=== PATIENT | female | born 1950 | race Caucasian/White ===

== ENCOUNTER 2023-02-03 21:54 | Inpatient (IN) ==
[2023-02-03] MEDS ORDERED: CALCIUM GLUCONATE 1000 MG/60 ML NSS IV ONE (21:59)
[2023-02-03] MEDS ORDERED: CALCIUM GLUCONATE 1,000 MG/60 ML BAG IV STA (22:12)
[2023-02-03] MEDS ORDERED: SODIUM CHLORIDE 0.9% 1,000 ML IV ONE (22:12)
--- NOTE | 2023-02-03 22:39 | Emergency Department Note ---
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 Dose: Not Given Documented By: SOREN Miscellaneous (Patient's Height &/Or Weight Needed) 1 each N/A NOW STA Stop: 02/04/23 03:50 Last Admin: 02/04/23 05:01 Dose: Not Given Documented By: TREVOR Pneumococcal 20-Valent Conj Vacc (Pneumococcal Vaccine (Pcv20) 20-Romina Conj-Dip Crm/Pf 0.5 Ml Syr) 0.5 ml IM .ONCE ONE Stop: 02/04/23 12:01 Last Admin: 02/04/23 12:11 Dose: Not Given Documented By: SOREN Propofol (Propofol Iv Emulsion 10 Mg/Ml 100 Ml Vial) Confirm Administered Dose 1,000 mg IV .STK-MED ONE Stop: 02/04/23 01:53 Last Admin: 02/04/23 03:08 Dose: Not Given Documented By: FLY Sodium Bicarbonate (Sodium Bicarb 8.4% Inj 50 Meq/50 Ml Syr) 50 meq IV NOW STA Stop: 02/04/23 00:08 Last Admin: 02/04/23 00:23 Dose: 50 meq Documented By: CHRISTIAN Sodium Bicarbonate (Sodium Bicarb 8.4% Inj 50 Meq/50 Ml Syr) 50 meq IV NOW STA Stop: 02/04/23 13:38 Last Admin: 02/04/23 14:22 Dose: 50 meq Documented By: SOREN Imaging Data Radiologist's Impression: Cervical Spine CT 02/03/23 22:11 Exam(s): CT C SPINE EXAM: CT Cervical Spine Without Intravenous Contrast CLINICAL HISTORY: Reason for exam: unresponsive. TECHNIQUE: Axial computed tomography images of the cervical spine without intravenous contrast. CTDI is 26.96 mGy and DLP is 671.03 mGy-cm. Automated exposure control was utilized for the study. A dose lowering technique was utilized adhering to the principles of ALARA. COMPARISON: MRI from December 25, 2012 FINDINGS: Vertebrae: Moderate narrowing and osteophytosis of the atlantodental joint. The odontoid process is intact. No acute fracture. Soft tissues: Unremarkable. Vasculature: Mild calcification of the carotid bifurcation bilaterally. Tubes, lines and devices: Endotracheal and NG tube in place. The tips are not visible. DISCS/SPINAL CANAL/NEURAL FORAMINA: C2-C3: Mild degenerative disc disease. No stenosis. C3-C4: Moderate degenerative disc disease. No stenosis. C4-C5: Moderate degenerative disc disease. No stenosis. C5-C6: Moderate degenerative disc disease. No stenosis. C6-C7: Moderate degenerative disc disease. No stenosis. C7-T1: Mild degenerative disc disease. No stenosis. IMPRESSION: Mild to moderate multilevel degenerative disc disease and facet arthrosis throughout the cervical spine. No acute fracture or subluxation is seen. Electronically signed by: Rah Valdes MD 02/03/23 23:[address] 02/03/23 22:11 Exam(s): CT HEAD Without Contrast EXAM: CT Head Without Intravenous Contrast CLINICAL HISTORY: Reason for exam: unresponsive, head trauma. TECHNIQUE: Axial computed tomography images of the head/brain without intravenous contrast. CTDI is 38.43 mGy and DLP is 624.41 mGy-cm. Automated exposure control was utilized for the study. A dose lowering technique was utilized adhering to the principles of ALARA. COMPARISON: December 23, 2012 MRI brain FINDINGS: Brain: Mild cerebral atrophy and periventricular white matter low density consistent with chronic small vessel disease and/or senescent changes. 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 No acute large vessel infarct or intracranial hemorrhage is seen. Ventricles: Unremarkable. No ventriculomegaly. Bones/joints: See below. Soft tissues: Left frontal scalp hematoma. There is preseptal periorbital edema as well. No skull or acute facial fracture is identified. Sinuses: Unremarkable as visualized. No acute sinusitis. Mastoid air cells: Unremarkable as visualized. No mastoid effusion. IMPRESSION: 1. Left frontal scalp hematoma. There is preseptal periorbital edema as well. No skull or acute facial fracture is identified. 2. Mild cerebral atrophy and periventricular white matter low density consistent with chronic small vessel disease and/or senescent changes. 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 No acute large vessel infarct or intracranial hemorrhage is seen. Electronically signed by: Rah Valdes MD 02/03/23 23:[address] 02/03/23 22:39 Exam(s): CT FACIAL Without Contrast EXAM: CT Maxillofacial Without Intravenous Contrast CLINICAL HISTORY: Reason for exam: facial fx?. TECHNIQUE: Axial computed tomography images of the face without intravenous contrast. CTDI is 38.43 mGy and DLP is 624.41 mGy-cm. Automated exposure control was utilized for the study. A dose lowering technique was utilized adhering to the principles of ALARA. COMPARISON: No relevant prior studies available. FINDINGS: Bones/joints: No acute orbital or facial fracture is identified. Soft tissues: Left periorbital and supraorbital scalp swelling. The globes are symmetrical. No retrobulbar hematoma is seen. Orbits: See above. Sinuses: Unremarkable. No air-fluid levels. IMPRESSION: Left periorbital and supraorbital scalp swelling. The globes are symmetrical. No retrobulbar hematoma is seen. No orbital or facial fracture is seen. Electronically signed by: Rah Valdes MD 02/03/23 23:51 PM Discharge Plan Visit Data Chief Complaint: Unresponsive Stated Complaint: FOUND ON FLOOR X1 WEEK, UNRESPONSIVE ED Provider: Raymond Wood Discharge Problem: ARF (acute renal failure), Shock, Pancreatitis, UTI (urinary tract infection), Encephalopathy acute, Hypothermia, Unresponsive, Facial laceration Patient Disposition: Admitted As Inpatient Condition: Critical Discharge Instructions Interventions: ED Discharge Assessment Last Done: 02/04/23 01:21
[2023-02-03 22:41] LABS: iSTAT Creatinine 2.4 mg/dl (0.6-1.3); iSTAT Hemoglobin 13.6 g/dl (12.0-16.0); iSTAT Ionized Calcium 1.38 mmol/l (1.12-1.32); iSTAT Potassium 4.3 mmol/L (3.3-5.0)
[2023-02-03 22:43] LABS: Base Excess VBG -13.8 mEq/L; HCO3 VBG 17 mmol/L; Oxygen Saturation VBG 70.1 %; PCO2 VBG 62 mmHg (38-50); PO2 VBG 51 mmHg; pH VBG 7.05 (7.36-7.41)
[2023-02-03 22:56] LABS: Hemoglobin 12.9 g/dl (12.0-16.0); Mean Corpuscular Hemoglobin 28.7 pg (25.0-34.0); Mean Corpuscular Hgb Conc 33.1 g/dL (32.0-36.0); Mean Corpuscular Volume 86.7 fL (80.0-100.0); Mean Platelet Volume 8.6 fL (9.4-12.4); Platelet Count 156 K/uL (130-400); RDW Coefficient of Variation 13.1 % (11.5-14.5); RDW Standard Deviation 41.4 fL (36.4-46.3); White Blood Count 25.22 K/ul (4.8-10.8)
[2023-02-03 23:02] LABS: Anion Gap 20 (3-11); BUN Creatinine Ratio 26.1 (10-20); Blood Urea Nitrogen 57 mg/dl (6-23); Carbon Dioxide 18 mmol/L (21-32); Chloride 99 mmol/L (98-107); Est GFR (African American) 25.8 ml/min; Est GFR (Non-African American) 22.2 ml/min; Glucose 149 mg/dl (70-99(Fasting)); Potassium 4.5 mmol/L (3.5-5.1); Sodium 137 mmol/L (136-145)
[2023-02-03 23:19] LABS: Alanine Aminotransferase 66 U/L (7-52); Albumin Level 2.7 gm/dl (3.4-5.0); Alkaline Phosphatase 155 U/L (34-104); Aspartate Aminotransferase 128 U/L (13-39); Bilirubin Direct 0.2 mg/dl (0-0.2); Bilirubin,Total 0.7 mg/dl (0.2-1.0); Creatine Kinase 710 U/L (26-192); Lipase 9680 U/L (11-82); Magnesium 2.7 mg/dl (1.7-2.4); Total Protein 5.8 gm/dl (6.0-8.3)
[2023-02-03 23:30] LABS: Basophils # (auto) 0.09 K/uL (0.00-0.20); Basophils % (auto) 0.4 %; Immature Granulocytes # (auto) 1.01 K/uL (0.01-0.20); Lymphocytes # (auto) 1.02 K/uL (1.20-3.40); Monocytes % (auto) 2.4 %; Neutrophils % (auto) 89.2 %
[2023-02-03 23:41] LABS: Appearance Urine Turbid (Clear); Color Urine Red
[2023-02-03 23:42] LABS: Specific Gravity Urine 1.019 (1.000-1.030)
--- NOTE | 2023-02-03 23:44 | CT Scan Report ---
Exam(s): CT C SPINE EXAM: CT Cervical Spine Without Intravenous Contrast CLINICAL HISTORY: Reason for exam: unresponsive. TECHNIQUE: Axial computed tomography images of the cervical spine without intravenous contrast. CTDI is 26.96 mGy and DLP is 671.03 mGy-cm. Automated exposure control was utilized for the study. A dose lowering technique was utilized adhering to the principles of ALARA. COMPARISON: MRI from December 25, 2012 FINDINGS: Vertebrae: Moderate narrowing and osteophytosis of the atlantodental joint. The odontoid process is intact. No acute fracture. Soft tissues: Unremarkable. Vasculature: Mild calcification of the carotid bifurcation bilaterally. Tubes, lines and devices: Endotracheal and NG tube in place. The tips are not visible. DISCS/SPINAL CANAL/NEURAL FORAMINA: C2-C3: Mild degenerative disc disease. No stenosis. C3-C4: Moderate degenerative disc disease. No stenosis. C4-C5: Moderate degenerative disc disease. No stenosis. C5-C6: Moderate degenerative disc disease. No stenosis. C6-C7: Moderate degenerative disc disease. No stenosis. C7-T1: Mild degenerative disc disease. No stenosis. IMPRESSION: Mild to moderate multilevel degenerative disc disease and facet arthrosis throughout the cervical spine. No acute fracture or subluxation is seen. Electronically signed by: Rah Valdes MD 02/03/23 23:43 PM
[2023-02-03 23:46] LABS: Bacteria Urine 4+ (Negative); Epithelial Cell Urine 0-5 /lpf (0-5); RBC Urine >30 /hpf (0-4); WBC Urine >30 /hpf (0-5)
--- NOTE | 2023-02-03 23:50 | CT Scan Report ---
Exam(s): CT HEAD Without Contrast EXAM: CT Head Without Intravenous Contrast CLINICAL HISTORY: Reason for exam: unresponsive, head trauma. TECHNIQUE: Axial computed tomography images of the head/brain without intravenous contrast. CTDI is 38.43 mGy and DLP is 624.41 mGy-cm. Automated exposure control was utilized for the study. A dose lowering technique was utilized adhering to the principles of ALARA. COMPARISON: December 23, 2012 MRI brain FINDINGS: Brain: Mild cerebral atrophy and periventricular white matter low density consistent with chronic small vessel disease and/or senescent changes. 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 No acute large vessel infarct or intracranial hemorrhage is seen. Ventricles: Unremarkable. No ventriculomegaly. Bones/joints: See below. Soft tissues: Left frontal scalp hematoma. There is preseptal periorbital edema as well. No skull or acute facial fracture is identified. Sinuses: Unremarkable as visualized. No acute sinusitis. Mastoid air cells: Unremarkable as visualized. No mastoid effusion. IMPRESSION: 1. Left frontal scalp hematoma. There is preseptal periorbital edema as well. No skull or acute facial fracture is identified. 2. Mild cerebral atrophy and periventricular white matter low density consistent with chronic small vessel disease and/or senescent changes. 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 No acute large vessel infarct or intracranial hemorrhage is seen. Electronically signed by: Rah Valdes MD 02/03/23 23:49 PM
--- NOTE | 2023-02-03 23:52 | CT Scan Report ---
Exam(s): CT FACIAL Without Contrast EXAM: CT Maxillofacial Without Intravenous Contrast CLINICAL HISTORY: Reason for exam: facial fx?. TECHNIQUE: Axial computed tomography images of the face without intravenous contrast. CTDI is 38.43 mGy and DLP is 624.41 mGy-cm. Automated exposure control was utilized for the study. A dose lowering technique was utilized adhering to the principles of ALARA. COMPARISON: No relevant prior studies available. FINDINGS: Bones/joints: No acute orbital or facial fracture is identified. Soft tissues: Left periorbital and supraorbital scalp swelling. The globes are symmetrical. No retrobulbar hematoma is seen. Orbits: See above. Sinuses: Unremarkable. No air-fluid levels. IMPRESSION: Left periorbital and supraorbital scalp swelling. The globes are symmetrical. No retrobulbar hematoma is seen. No orbital or facial fracture is seen. Electronically signed by: Rah Valdes MD 02/03/23 23:51 PM
[2023-02-04 00:07] LABS: Acetaminophen < 3 ug/ml (10-30); Salicylate < 3.0 mg/dl (3.0-30)
[2023-02-04] MEDS ORDERED: SODIUM BICARB 8.4% INJ 50 MEQ/50 ML SYR IV STA ×2 (00:07→13:37)
[2023-02-04 00:21] LABS: Amphetamines+Metham, Urine Neg (Neg); Barbiturates, Urine Neg (Neg); Benzodiazepine, Urine Pos (Neg); Cocaine, Urine Neg (Neg); MDMA (Ecstacy), Urine Neg (Neg); Marijuana, Urine Neg (Neg); Methadone, Urine Neg (Neg); Opiate, Urine Neg (Neg); Phencyclidine, Urine Neg (Neg)
[2023-02-04] MEDS ORDERED: cefTRIAXone SODIUM 2,000 MG/50 ML BAG IV STA (00:26)
[2023-02-04] MEDS ORDERED: PLASMA-LYTE A 1,000 ML IV ONE ×2 (00:42→05:14)
[2023-02-04] MEDS ORDERED: OPTIRAY 320 500ml IV ONE (01:34)
--- NOTE | 2023-02-04 01:41 | Critical Care Consultation ---
Date of Consultation February 04, 2023 Assessment & Plan (1) Radial artery thrombosis: (2) Sepsis: (3) Shock: (4) Pancreatitis: (5) Nephrolithiasis: (6) ARF (acute renal failure): (7) Metabolic acidosis: (8) UTI (urinary tract infection): (9) Encephalopathy acute: (10) Hypothermia: Plan Reason Critically Ill: 72 YOF presents to EMD for unknown time of unresponsiveness and down on ground. She is with hypothermia, severe acidosis and mottled extremities. She required intubation in the field and is now in ICU for mechanical ventilation and continued resuscitation. Currently she is with multiple pathologies known and suspected- thrombosis to left radial artery, pancreatitis by imaging and lab, oliguric ARF with hematuria, mild rhabdomyolysis, UTI suspected, and nephrolithiasis of right kidney with hydro, possibly anoxic brain injury, septic shock. Neuro - Encephalopathy, concern for anoxic brain injury, possible ingestion CAM ICU: [facility] - Patient presents with unknown down time intubated in the field - initially on presentation was GCS 3T however was also severly hypothermic - Correct hypothermia - CT head negative for acute process or large territorial CVA or hemorrhage - old lacunar infarct - Consider MRI within next 24 hours for evaluation although not fully diagnostic at this stage, however if with edema/anoxia it is prognostic of poor neurological outcome - Continue to correct acidosis - Maintain normal glycemia, normo carbia, normo oxia, normothermia - Propofol for sedation GCS improving to 7T with correcting hypothermia - EEG in am eval for any underlying seizure or slowing activity - Tox screen with + benzodiazepines- await confirmation - Cervical spine cleared by imaging by EMD Cardiac - Shock- multifactorial, Arterial occlusion of left radial artery - Patient with multifactorial shock to include distributive/sepsis and hypovolemic- initial lactate 9.3- only received 2L prior to ICU - WIll continue with volume resuscitation until euvolemia achieved - Currently is not requiring vasopressor agents- will add Levophed on if needed - Maintain MAPS >65 - Follow UO - See ID section below for sepsis -Arterial occlusion of left radial artery- likely cause at this time is compression from her lying on her arm as she has pressure ulcerations of left face, shoulder, hip - POCUS performed by me in [facility] with no Doppler on radial but was with doppler signal on ULNAR side and at BRACHIAL- formal Duplex confirms clot left radial at origin and throughout course of forearm - Discussed with Dr. Kearns on phone- heparin infusion to prevent propagation as ulnar side is open no intervention at this time Respiratory - Intubation with mechanical ventilation, Emphysema - ARDsnet lung protective ventilation strategy - SBT when appropriate - CTA of chest negatie for PE and other infectious pulmonary pathology - Emphysematous changes present not bronchospastic GI - Pancreatitis, liver abnormality on CT scan concern for ischemia, FPC - Patient with pancreatitis by criteria of radiographic evidence and elevated lipase to 9,680- although this is proportional to her dehydrated state, this is well above limit consistent with pancreatitis likely - BISAP score 4 13-19% mortality from pancreatitis - is with noted diffuse edema through abdomen and pelvis- this is likely related to her lying on her side for unknown time period - EDWARD with elevated liver enzymes likely secondary to shock and or ischemia- continue supportive care - consider hepatic Doppler- however would not traveler changer at this time as patient will be anticoagulated - NPO for now, advance OG tube - PPI RENAL/LYTES - ARF, Hematuria, chronic nephrolithiasis with right hydro, metabolic acidosis, Lactic acidosis, Rhabdo - ARF Oliguric at this time- no urine output with ongoing volume resuscitation - Discussed case with urology for any acute intervention- difficult ascertain cause of her underlying demise- if any intervention/stenting would likely need urostomy tube- see family discussion below - Hernandez irrigated easily with return of all irrigant, noted moderate clots and blood upon return - Continue with isotonic HCO3 infusion for maintenance in setting of ARF and Rhabdo (mild) - Plasmalyte as bolus fluid - AGAP metabolic acidosis - lactic acid improving, salicylates and Tylenol negative - Hematuria, - unsure of true etiology or multifactorial- ATN, Sepsis, rhabdo, ? mass or other - free fluid in pelvis small amount without perforation noted or mass - Appreciate urology discussion and assistance - follow with initiation of heparin ENDO - Hyperparathyroidism - No acute need at this time, however is likely the cause of her underlying nephrolithiasis - follow CA levels- if elevated would trend iCA and treat iCA levels HEME - coagulopathy - Likely progressing to DIC from trauma/infection/MODS or combination of all - Will follow closely with heparin infusion - as her anti XA is low likely be able to tolerate infusion to target Xa level - if she survives the risk of loss of limb and provocation of arterial clot is Greater than bleeding - Fibrinogen will be sent - Support with blood products if needed ID - Sepsis - Can't exclude septic cause or involvement at this time, she is with open skin pressure ulcers, elevated WBC count, hypothermia, and possibly infected urine - Broaden antibiotics to Cefepime and Doxycycline - Blood cultures obtained in the ICU on arrival - she did receive dose of Rocephin in the EMD prior to cultures LINES/IV ACCESS - ETT, OGT, Right Radial Arterial line Continue use of these lines - CVL placement deferred at this time per family discussion DVT PROPHYLAXIS - SCDs, Heparin DISPO: ICU while intubated and sedated and while undergoing active resuscitation Family called back into bedside early in morning as results with CT scan of abdomen/pelvis as well as Doppler of LUE, and new laboratory information/abnormalities. Daughter and her in person and father on the phone. We discussed her mom's current condition with unknown down time, hypothermia and remaining possibility of anoxic brain injury. We discussed that she has multiple organ in failure or with injury at this time to include- brain, kidneys, liver, bladder- she likely has ischemic injury to her kidneys and liver and is with evidence of pancreatitis as well as likely DIC. We discussed that it is likely she is in septic shock as well from presumed urinary source and with all of these pathologies at play, her mother's mortality rate is >50%. We discussed urology evaluation and possible transfer for evaluation for urostomy tube, however in her current hemodynamic state and with unknown response/recovery of kidneys this would also be high risk. We also discussed that it is unlikely to know the inciting event however she is being treated for multitude of her problems to include volume resuscitation, acid base correction, ventilatory support, antibiotics, and anticoagulation. We discussed that if she would survive, she is looking at extended hospital stay and with her current frail baseline appearance she would require months of rehab to get back to where she was prior to this event. We also discussed that if she were to have an arrest the chance of her surviving without further damaging her already effected organs to include possibly brain is unlikely without some permanent damage or , and is likely to cause her pain and prolong dying. We discussed options of continuing supportive care with IVF, antibiotics, blood infusions, anticoagulation, and bicarb therapy +/- vasopressors, discussed what palliative care/extubation would be, and discussed risks and options of transferring patient to tertiary care center, however her ability to undergo surgery and/or anesthesia would be very risky at this point. Family discussed with each other including another sister and following this discussion the family would like to make the patient DNR and continue with supportive care. If she would require vasopressor agents, trial for short course and if organ perfusion/function is worsening then likely transition to comfort/palliation at that time. They would not like to pursue any heroic measures at this time including placement of CVL at this time. Would be open to CVL placement in future if needed to continue support. Dr. Dutton admitting hospitalist was also present for discussion. Code status changed to DNR I have personally spent 90 minutes of critical care time in the direct management of this patient. This is a life/limb threatening event. This includes time spent evaluating patient, direct bedside care, chart review, placing orders, interpretation of diagnostic studies, discussion with consultants, patient, and family members, as well as other required patient management activities. This time is exclusive of all separately billable procedures, and teaching time and separate from and in addition to any other critical care service time. Thank you for allowing us to participate in the care of this patient. Please refer to my attending physician's documentation for any further recommendations. History of Present Illness Reason for Consultation: Encephalopathy intubated and mechanically ventilated Requesting Physician: Felix Dutton MD Attending Physician: Felix Salinas MD History of Present Illness 72 YOF with medical history of: Chronic pain on Tramadol, and Hyperparathyroid disease, Osteopetrosis. Records that are available were reviewed. Patient arrived in the EMD earlier via EMS after being found down at home for unknown period of time however EMD note notes that she has not been heard from by family for over a week. She was found by her daughter today on the ground face down. EMS was summons and she was intubated in the field for low GCS scor without RSI per report. There is also report of pill bottles found by her, but is not with mention of type. On arrival to the EMD, she was noted to be hypothermic and bradycardic. Routine labs were obtained in the EMD noting acidosis with PH 7.09, Co2 62, Hco3 17, Noted with Lactate of 9, elevated renal function elevated lipase and CK. Urine was reported as bloody and urinalysis unable to be completed secondary to color interference. Tox screen is positive for Benzodiazepines. She was given 1 GM calcium, 2 liters of 0.9% saline, and had imaging performed to include CXR, Cervical Spine, CT face, and non con of head. ICU was called for admission at request of hospitalist admitting team. Once contacted by EMD physician, requested amp of NAHCO3, obtain imaging of chest, abdomen/pelvis, and provide further IV fluids. Patient was evaluated in the EMD following consultation. Patient is noted with mottled arms and legs, left hand is more swollen than right, she is with face contusion with breakdown over left orbital bone, left shoulder is with pressure ulceration, left hip with pressure ulceration. Difficulty palpating left radial artery, but is with ulnar pulsa tion- also request Doppler of left upper extremity. Overall patient is without sedation and with GCS 3T at this time, is overbreathing vent, does blink eyes against trying to open them. Head CT is without large territorial stroke or hemorrhage or midline shift. She is starting to move some of her extremities and attempting to lift head off of bed as her temperature improves. To ICU following scans of abdomen/pelvis/chest. Continue with resuscitation for hypovolemia and lactic acidosis, too early at this time for nuerological prognostication in the setting of hypothermia as well. Multiple pathologies at play to include likely limb ischemia, possible liver ischemia, can't exclude or rule out septic shock from Urinary source, mild rhabdo and likely ATN. CODE: FULL Allergies Allergy/AdvReac Type Severity Reaction Status Date / Time No Known Allergies Allergy Unknown Verified 02/03/23 22:15 Home Medications Medication Instructions Recorded Confirmed Type dextroamphetamine-amphetamine 20 20 mg PO TID 03/19/19 02/03/23 History mg tablet (Adderall) ferrous sulfate 325 mg (65 mg 325 mg PO DAILY 03/19/19 02/03/23 History iron) tablet tramadol 50 mg tablet 100 mg PO Q6H PRN Pain 03/19/19 02/03/23 History valacyclovir 1 gram tablet 1,000 mg PO BID PRN as needed 09/24/20 02/03/23 History (Valtrex) cinacalcet 60 mg tablet 60 mg PO BID #60 tabs 12/20/22 02/03/23 Rx Patient History Medical History Vitamin D deficiency Kyphosis Attention 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 hyperactivity Fatigue Hypercalcemia Hyperparathyroidism Nephrolithiasis Kidney stone on right side Hydronephrosis with urinary obstruction due to renal calculus Dental caries Anemia (12/22/12) H/O endoscopy Fecal impaction of colon (06/05/13) Surgical History H/O: section H/O colonoscopy Social History Smoking Status: Unknown if ever smoked Preferred Language: Gabonese 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: No marital status: Current Living Situation: Alone Current Living Situation Comment: Lives at home alone current occupational status: retired Review of Systems Review of Systems: unable to obtain Physical Exam Physical Exam: PHYSICAL EXAM: Head: left orbital contusion with pressure ulceration ENT: mucous membranes dry Neuro: GCS 7T, pupils sluggish, withdraws to pain, normal Babinski, +gag and overbreathing ventilator Chest: equal rise and fall of the chest, no accessory muscle use, no heaves or thrills, Clear to auscultation, no chest wall deformities Cardiac: Regular rate and rhythm, telemetry reviewed- sinus bradycardia, skin mottled in lower extremities, left hand edematous with no palpable radial pulse, skin warm and 2+ pulses everywhere else GI: NABS x 4 quadrants, soft, : Hernandez to gravity with blood around meatus, urine that is coming out is blood tinged with multiple clots Skin: Multiple areas of pressure sores from being down, left face, left shoulder, left hip, left knee, right knee, toes Results & Data Results & Data Vital Signs (Past 12 Hours) Vital Signs Temp Pulse Resp BP Pulse Ox O2 Del Method O2 Flow Rate 02/04/23 01:20 29.8 C L 02/04/23 01:10 88/66 L 02/04/23 01:10 52 L 31 H 94 02/04/23 01:00 85/62 L 02/04/23 01:00 50 L 32 H 97 02/04/23 00:50 84/59 L 02/04/23 00:50 49 L 34 H 97 02/04/23 00:40 49 L 34 H 98/64 L 98 02/04/23 00:30 49 L 34 H 124/76 98 02/04/23 00:20 45 L 33 H 114/71 100 02/04/23 00:10 44 L 33 H 108/70 99 02/04/23 00:00 43 L 34 H 110/71 99 02/03/23 23:50 40 L 33 H 106/76 99 02/03/23 23:45 43 L 32 H 108/75 98 02/03/23 23:40 42 L 34 H 100/73 98 02/03/23 23:35 41 L 35 H 93/66 L 96 02/03/23 23:30 40 L 34 H 88/71 L 96 02/03/23 23:25 40 L 34 H 98/69 L 97 02/03/23 23:20 40 L 35 H 103/70 99 02/03/23 23:15 39 L 34 H 99 02/03/23 23:15 106/72 02/03/23 23:10 109/76 02/03/23 23:10 40 L 33 H 100 02/03/23 23:05 42 L 34 H 98 02/03/23 23:05 100/72 02/03/23 23:00 27.7 C L 02/03/23 23:00 39 L 32 H 97 02/03/23 23:00 98/63 L 02/03/23 22:58 39 L 33 H 97 02/03/23 22:58 87/66 L 02/03/23 22:54 39 L 38 H 100 02/03/23 22:40 39 L 37 H 100 02/03/23 22:36 37 L 17 95 02/03/23 22:36 115/75 02/03/23 22:32 38 L 36 H 97 02/03/23 22:32 112/71 02/03/23 22:30 38 L 34 H 100 Mechanical Vent 50 02/03/23 22:30 02/03/23 22:27 26 H 02/03/23 22:20 98/70 L 02/03/23 22:20 40 L 33 H 75 L 02/03/23 22:16 86/64 L 02/03/23 22:16 38 L 28 H 100 02/03/23 22:10 38 L 35 H 100 Mechanical Vent 02/03/23 22:02 38 L 8 L 02/03/23 22:02 38 L 02/03/23 21:59 34 H 02/03/23 21:49 FiO2 02/04/23 01:20 02/04/23 01:10 02/04/23 01:10 02/04/23 01:00 02/04/23 01:00 02/04/23 00:50 02/04/23 00:50 02/04/23 00:40 02/04/23 00:30 02/04/23 00:20 02/04/23 00:10 02/04/23 00:00 02/03/23 23:50 02/03/23 23:45 02/03/23 23:40 02/03/23 23:35 02/03/23 23:30 02/03/23 23:25 02/03/23 23:20 02/03/23 23:15 02/03/23 23:15 02/03/23 23:10 02/03/23 23:10 02/03/23 23:05 02/03/23 23:05 02/03/23 23:00 02/03/23 23:00 02/03/23 23:00 02/03/23 22:58 02/03/23 22:58 02/03/23 22:54 02/03/23 22:40 02/03/23 22:36 02/03/23 22:36 02/03/23 22:32 02/03/23 22:32 02/03/23 22:30 02/03/23 22:30 50 02/03/23 22:27 50 02/03/23 22:20 02/03/23 22:20 02/03/23 22:16 02/03/23 22:16 02/03/23 22:10 100 02/03/23 22:02 02/03/23 22:02 02/03/23 21:59 100 02/03/23 21:49 100 Laboratory Results Abnormal lab results 02/03/23 02/03/23 02/03/23 Range/Units 22:24 22:25 23:13 WBC 25.22 H (4.8-10.8) K/ul MPV 8.6 L (9.4-12.4) fL Neut # (Auto) 22.50 H (1.40-6.50) K/uL Lymph # (Auto) 1.02 L (1.20-3.40) K/uL Aguada # (Auto) 0.60 H (0.11-0.59) K/uL Immature Gran # (Auto) 1.01 H (0.01-0.20) K/uL VBG pH 7.05 L (7.36-7.41) VBG pCO2 62 H (38-50) mmHg POC Sodium 134 L (135-144) mmol/L Carbon Dioxide 18 L (21-32) mmol/L POC Total CO2 21 L (24-31) mmol/L Anion Gap 20 H (3-11) POC Anion Gap 15.0 L (16-25) mmol/L POC BUN 53 H (7-18) mg/dl BUN 57 H (6-23) mg/dl Creatinine 2.18 H (0.6-1.2) mg/dl POC Creatinine 2.4 H (0.6-1.3) mg/dl BUN/Creatinine Ratio 26.1 H (10-20) Glucose 149 H (70-99(Fasting)) mg/dl POC Glucose (other) 146 H (70-99) mg/dl Lactate 9.5 H* (0.4-2.0) mmol/L Calcium 11.0 H (8.6-10.3) mg/dl POC Ioniz Calcium Damian 1.38 H (1.12-1.32) mmol/l Magnesium 2.7 H (1.7-2.4) mg/dl AST 128 H (13-39) U/L ALT 66 H (7-52) U/L Alkaline Phosphatase 155 H (34-104) U/L Total Creatine Kinase 710 H (26-192) U/L Total Protein 5.8 L (6.0-8.3) gm/dl Albumin 2.7 L (3.4-5.0) gm/dl Lipase 9680 H (11-82) U/L Urine Appearance Turbid A (Clear) Urine RBC >30 H (0-4) /hpf Urine WBC >30 H (0-5) /hpf Urine Bacteria 4+ H (Negative) Salicylates < 3.0 L (3.0-30) mg/dl Acetaminophen < 3 L (10-30) ug/ml U Benzodiazepines Scrn Pos H (Neg) 02/04/23 02/04/23 Range/Units 00:52 03:21 WBC (4.8-10.8) K/ul MPV (9.4-12.4) fL Neut # (Auto) (1.40-6.50) K/uL Lymph # (Auto) (1.20-3.40) K/uL [place] # (Auto) (0.11-0.59) K/uL Immature Gran # (Auto) (0.01-0.20) K/uL VBG pH (7.36-7.41) VBG pCO2 (38-50) mmHg POC Sodium (135-144) mmol/L Carbon Dioxide (21-32) mmol/L POC Total CO2 (24-31) mmol/L Anion Gap (3-11) POC Anion Gap (16-25) mmol/L POC BUN (7-18) mg/dl BUN (6-23) mg/dl Creatinine (0.6-1.2) mg/dl POC Creatinine (0.6-1.3) mg/dl BUN/Creatinine Ratio (10-20) Glucose (70-99(Fasting)) mg/dl POC Glucose (other) (70-99) mg/dl Lactate 8.1 H* 5.3 H* (0.4-2.0) mmol/L Calcium (8.6-10.3) mg/dl POC Ioniz Calcium Damian (1.12-1.32) mmol/l Magnesium (1.7-2.4) mg/dl AST (13-39) U/L ALT (7-52) U/L Alkaline Phosphatase (34-104) U/L Total Creatine Kinase (26-192) U/L Total Protein (6.0-8.3) gm/dl Albumin (3.4-5.0) gm/dl Lipase (11-82) U/L Urine Appearance (Clear) Urine RBC (0-4) /hpf Urine WBC (0-5) /hpf Urine Bacteria (Negative) Salicylates (3.0-30) mg/dl Acetaminophen (10-30) ug/ml U Benzodiazepines Scrn (Neg) Diagnostic Findings Cervical Spine CT 02/03/23 22:11 Exam(s): CT C SPINE EXAM: CT Cervical Spine Without Intravenous Contrast CLINICAL HISTORY: Reason for exam: unresponsive. TECHNIQUE: Axial computed tomography images of the cervical spine without intravenous contrast. CTDI is 26.96 mGy and DLP is 671.03 mGy-cm. Automated exposure control was utilized for the study. A dose lowering technique was utilized adhering to the principles of ALARA. COMPARISON: MRI from December 25, 2012 FINDINGS: Vertebrae: Moderate narrowing and osteophytosis of the atlantodental joint. The odontoid process is intact. No acute fracture. Soft tissues: Unremarkable. Vasculature: Mild calcification of the carotid bifurcation bilaterally. Tubes, lines and devices: Endotracheal and NG tube in place. The tips are not visible. DISCS/SPINAL CANAL/NEURAL FORAMINA: C2-C3: Mild degenerative disc disease. No stenosis. C3-C4: Moderate degenerative disc disease. No stenosis. C4-C5: Moderate degenerative disc disease. No stenosis. C5-C6: Moderate degenerative disc disease. No stenosis. C6-C7: Moderate degenerative disc disease. No stenosis. C7-T1: Mild degenerative disc disease. No stenosis. IMPRESSION: Mild to moderate multilevel degenerative disc disease and facet arthrosis throughout the cervical spine. No acute fracture or subluxation is seen. Electronically signed by: Rah Valdes MD 02/03/23 23:[address] 02/03/23 22:11 Exam(s): CT HEAD Without Contrast EXAM: CT Head Without Intravenous Contrast CLINICAL HISTORY: Reason for exam: unresponsive, head trauma. TECHNIQUE: Axial computed tomography images of the head/brain without intravenous contrast. CTDI is 38.43 mGy and DLP is 624.41 mGy-cm. Automated exposure control was utilized for the study. A dose lowering technique was utilized adhering to the principles of ALARA. COMPARISON: December 23, 2012 MRI brain FINDINGS: Brain: Mild cerebral atrophy and periventricular white matter low density consistent with chronic small vessel disease and/or senescent changes. 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 No acute large vessel infarct or intracranial hemorrhage is seen. Ventricles: Unremarkable. No ventriculomegaly. Bones/joints: See below. Soft tissues: Left frontal scalp hematoma. There is preseptal periorbital edema as well. No skull or acute facial fracture is identified. Sinuses: Unremarkable as visualized. No acute sinusitis. Mastoid air cells: Unremarkable as visualized. No mastoid effusion. IMPRESSION: 1. Left frontal scalp hematoma. There is preseptal periorbital edema as well. No skull or acute facial fracture is identified. 2. Mild cerebral atrophy and periventricular white matter low density consistent with chronic small vessel disease and/or senescent changes. 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 No acute large vessel infarct or intracranial hemorrhage is seen. Electronically signed by: Rah Valdes MD 02/03/23 23:[address] 02/03/23 22:39 Exam(s): CT FACIAL Without Contrast EXAM: CT Maxillofacial Without Intravenous Contrast CLINICAL HISTORY: Reason for exam: facial fx?. TECHNIQUE: Axial computed tomography images of the face without intravenous contrast. CTDI is 38.43 mGy and DLP is 624.41 mGy-cm. Automated exposure control was utilized for the study. A dose lowering technique was utilized adhering to the principles of ALARA. COMPARISON: No relevant prior studies available. FINDINGS: Bones/joints: No acute orbital or facial fracture is identified. Soft tissues: Left periorbital and supraorbital scalp swelling. The globes are symmetrical. No retrobulbar hematoma is seen. Orbits: See above. Sinuses: Unremarkable. No air-fluid levels. IMPRESSION: Left periorbital and supraorbital scalp swelling. The globes are symmetrical. No retrobulbar hematoma is seen. No orbital or facial fracture is seen. Electronically signed by: Rah Valdes MD 02/03/23 23:51 PM Abdomen/Pelvis CT 02/04/23 00:07 Exam(s): CT ABDOMEN + PELVIS With Contrast IV Amt: 90 ml opti 320 EXAM: CT Abdomen and Pelvis With Intravenous Contrast CLINICAL HISTORY: Reason for exam: found down. TECHNIQUE: Axial computed tomography images of the abdomen and pelvis with intravenous contrast. CTDI is 7.47 mGy and DLP is 525.77 mGy-cm. Automated exposure control was utilized for the study. A dose lowering technique was utilized adhering to the principles of ALARA. CONTRAST: Patient received 90 ml opti 320 of IV contrast COMPARISON: May 03, 2015 FINDINGS: Lung bases: Unremarkable. No mass. No consolidation. ABDOMEN: Liver: Peripheral wedge-shaped areas of decreased enhancement of the in the periphery of the liver. Possible perfusion phenomenon. No discrete mass lesion is a visible. Gallbladder and bile ducts: Unremarkable. No calcified stones. No ductal dilation. Pancreas: Edema throughout the pancreas which appears mildly fatty infiltrated. Questionable pancreatitis versus secondary edema from a separate process. No ductal dilation. Spleen: Unremarkable. No splenomegaly. Adrenals: Unremarkable. No mass. Kidneys and ureters: There is a 1.5 cm oval calculus in the mid right ureter causing severe right hydronephrosis and delayed enhancement of the right kidney. There is moderate to severe right renal atrophy which suggest this could be a chronic process. Diffuse edema throughout the abdomen and pelvis. There is mild enhancement of the left kidney which is nonspecific but can be seen in sepsis or acute tubular necrosis. Stomach and bowel: Unremarkable. No obstruction. No mucosal thickening. PELVIS: Appendix: No findings to suggest acute appendicitis. Bladder: The urinary bladder is decompressed by Hernandez catheter. Reproductive: Unremarkable as visualized. ABDOMEN and PELVIS: Intraperitoneal space: Bowel loops are nondilated. There is diffuse edema and small amount of free fluid throughout the abdomen and pelvis. No focal acute bowel abnormality, pneumoperitoneum, or abscess is seen. Bones/joints: Moderate osteoarthritic changes of the left hip. There are moderate to severe degenerative changes throughout the spine. No acute fracture or subluxation is seen. Soft tissues: Unremarkable. Vasculature: Unremarkable. No abdominal aortic aneurysm. Lymph nodes: Unremarkable. No enlarged lymph nodes. Tubes, lines and devices: There is an NG tube terminating at the gastroesophageal junction. There is a 5.4 cm hiatal hernia. The NG tube does not reach the main body of the stomach which is only partially distended. IMPRESSION: 1. There is a 1.5 cm oval calculus in the mid right ureter causing severe right hydronephrosis and delayed enhancement of the right kidney. There is moderate to severe right renal atrophy which suggest this could be a chronic process. 2. Diffuse edema throughout the abdomen and pelvis. There is mild enhancement of the left kidney which is nonspecific but can be seen in sepsis or acute tubular necrosis. 3. Bowel loops are nondilated. There is diffuse edema and small amount of free fluid throughout the abdomen and pelvis. No focal acute bowel abnormality, pneumoperitoneum, or abscess is seen. 4. Edema throughout the pancreas which appears mildly fatty infiltrated. Questionable pancreatitis versus secondary edema from a separate process. 5. There is an NG tube terminating at the gastroesophageal junction. There is a 5.4 cm hiatal hernia. The NG tube does not reach the main body of the stomach which is only partially distended. 6. Peripheral wedge-shaped areas of decreased enhancement of the in the periphery of the liver. Possible perfusion phenomenon. No discrete mass lesion is a visible. Electronically signed by: Rah Valdes MD 02/04/23 02:[address] 02/04/23 00:38 Exam(s): CT CHEST With Contrast IV Amt: 90 ml opti 320 EXAM: CT Chest With Intravenous Contrast CLINICAL HISTORY: Reason for exam: Unresponsive. TECHNIQUE: Axial computed tomography images of the chest with intravenous contrast. CTDI is 7.47 mGy and DLP is 525.77 mGy-cm. Automated exposure control was utilized for the study. A dose lowering technique was utilized adhering to the principles of ALARA. CONTRAST: Patient received 90 ml opti 320 of IV contrast COMPARISON: Chest x-ray from July 02, 2015 FINDINGS: Lungs: Unremarkable. No mass. No consolidation. Pleural space: There are mild emphysematous changes scratched that the lungs are well-inflated and clear. No infiltrate or consolidation is seen. No pneumothorax or pleural effusion. Heart: Unremarkable. No cardiomegaly. No significant pericardial effusion. No significant coronary artery calcifications. Bones/joints: Increased kyphosis of the thoracic spine with mild to moderate multilevel degenerative changes. No acute fracture or spinal stenosis is seen. No bone lesion. No dislocation. Soft tissues: Unremarkable. Vasculature: The thoracic aorta is nondilated. There is no aneurysm or dissection. The pulmonary arterial tree is well opacified with contrast. No pulmonary embolism is identified. Lymph nodes: Unremarkable. No enlarged lymph nodes. Tubes, lines and devices: Endotracheal tube in good position. There is an NG tube extending into the lower esophagus within a hiatal hernia, short of the stomach. IMPRESSION: 1. Endotracheal tube in good position. There is an NG tube extending into the lower esophagus within a hiatal hernia, short of the stomach. 2. The thoracic aorta is nondilated. There is no aneurysm or dissection. 3. The pulmonary arterial tree is well opacified with contrast. No pulmonary embolism is identified. 4. There are mild emphysematous changes scratched that the lungs are well-inflated and clear. No infiltrate or consolidation is seen. No pneumothorax or pleural effusion. Electronically signed by: Rah Valdes MD 02/04/23 02:31 AM [facility] [place] [phone] Ultrasound Report Patient: YOSELIN ALDRIDGE Admit Date: 02/04/23 MR#: [id number] Address1: [address] Acct ID:[id number] Address2: Date: 1950 [facility] Zip: [place] [address] Age: 72 Location: Sex: F Room/Bed: [facility] Att Phy: Jodee Carrasco MD Diagnosis: UNRESPONSIVE Marie Phy: Ish Medina MD Service Date: 02/04/23 Fam Phy: Interpreting Phy: Tobias Wood MDAdmit Phy: Felix Dutton MD Ordering Phy: Leoncio Rhodes cc: ~ ADDENDUM ADDENDUM: 02/04/23 04:10 Call Doctor Regarding Acute arterial occlusion/ critical stenosis, VR with RN [place] for Dr. Rhodes on 02/04 04:10 (-05:00) Electronically signed by: Tobias Wood M.D. Electronically signed by: Tobias Wood M.D. 02/04/23 03:57 AM ADDENDUM END Exam(s): US ARTERIAL LEFT UPPER EXTREMITY EXAM: US Duplex Left Upper Extremity Arteries CLINICAL HISTORY: Reason for exam: eval for occlusion of radial artery/perfusion. TECHNIQUE: Real-time duplex ultrasound scan of the left upper extremity arteries integrating B-mode two-dimensional vascular structure, Doppler spectral analysis and color flow Doppler imaging. COMPARISON: No relevant prior studies available. FINDINGS: Left brachial artery: Left distal brachial artery is patent with multiphasic waveforms. Left radial artery: There is acute thrombosis of the left radial artery at its origin and throughout the course in the forearm. Soft tissues: Unremarkable. 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 Communications: Call Doctor Acute arterial occlusion/ critical stenosis Electronically signed by: Tobias Wood M.D. 02/04/23 03:57 AM Dictated: 02/04/23 0357 Transcribed: 02/04/23 0357 Medications Administered Home Medications dextroamphetamine-amphetamine 20 mg tablet (Adderall) 20 mg PO TID 03/19/19 [History Confirmed 02/03/23] ferrous sulfate 325 mg (65 mg iron) tablet 325 mg PO DAILY 03/19/19 [History Confirmed 02/03/23] tramadol 50 mg tablet 100 mg PO Q6H PRN Pain 03/19/19 [History Confirmed 02/03/23] valacyclovir 1 gram tablet (Valtrex) 1,000 mg PO BID PRN as needed 09/24/20 [History Confirmed 02/03/23] cinacalcet 60 mg tablet 60 mg PO BID #60 tabs 12/20/22 [Rx Confirmed 02/03/23] Active Medications Fentanyl Citrate (Fentanyl Citrate Pf 100 Mcg/2 Ml Vial) 50 mcg IV Q2H PRN PRN Reason: Moderate Pain (4,5,6) on NRS Stop: 02/18/23 01:52 Sodium Bicarbonate 150 meq/ (Dextrose) 1,150 mls @ 150 mls/hr IV .Q7H40M SUSSY Stop: 03/06/23 01:52 Last Admin: 02/04/23 03:09 Dose: 150 mls/hr Propofol (Diprivan) 1,000 mg in 100 mls @ 4.584 mls/hr IV .V88M38M SUSSY; Protocol Stop: 02/07/23 01:59 Last Admin: 02/04/23 03:07 Dose: 20 mcg/kg/min, 4.6 mls/hr Cefepime HCl 2,000 mg/ Syringe 20 mls @ 5 mls/min IV Q12H [facility]; Protocol Stop: 02/09/23 02:59 Heparin Sodium/Dextrose (Heparin Sodium/Dextrose) 25,000 units in 500 mls @ 0.02 mls/hr IV .Q24H SUSSY; Protocol Stop: 03/06/23 03:29 Doxycycline Hyclate 100 mg/ (Dextrose) 100 mls @ 50 mls/hr IV Q12H SUSSY Stop: 02/06/23 03:14 Miscellaneous (Icu Protocol For Hyperglycemia) 1 each N/A ACHS [facility] Stop: 02/06/23 07:29 Propofol (Propofol Bolus From Bag) 20 mg IV Q5M PRN PRN Reason: Sedation Stop: 02/07/23 01:52 Coding Level of Care Code 32960 CRITICAL CARE 1ST 30-74M Additional Critical Care Time Additional 30min Critical Care Time: Yes - 42911 Total Critical Care Time: 90 Diagnoses Radial artery thrombosis I74.2 Sepsis A41.9 Shock R57.9 Pancreatitis K85.90 Nephrolithiasis N20.0 ARF (acute renal failure) N17.9 Metabolic acidosis E87.20 UTI (urinary tract infection) N39.0 Encephalopathy acute G93.40 Hypothermia T68.XXXA Additional Codes Critical Care Time - Additional 30min Critical Care Time: Yes - [id number] ([id number])
[2023-02-04] MEDS ORDERED: PROPOFOL IV EMULSION 10 MG/ML 100 ML VIAL IV ONE (01:52)
[2023-02-04] MEDS ORDERED: STAT IV Infusion **Titration per Protocol STA ×4 (01:53→12:50)
[2023-02-04] MEDS ORDERED: fentaNYL citrate PF 100 MCG/2 ML VIAL IV PRN (01:53)
[2023-02-04] MEDS ORDERED: STAT IV/IM STA (01:53)
[2023-02-04] MEDS ORDERED: PROPOFOL BOLUS FROM BAG IV PRN (01:53)
--- NOTE | 2023-02-04 02:18 | CT Scan Report ---
Exam(s): CT ABDOMEN + PELVIS With Contrast IV Amt: 90 ml opti 320 EXAM: CT Abdomen and Pelvis With Intravenous Contrast CLINICAL HISTORY: Reason for exam: found down. TECHNIQUE: Axial computed tomography images of the abdomen and pelvis with intravenous contrast. CTDI is 7.47 mGy and DLP is 525.77 mGy-cm. Automated exposure control was utilized for the study. A dose lowering technique was utilized adhering to the principles of ALARA. CONTRAST: Patient received 90 ml opti 320 of IV contrast COMPARISON: May 03, 2015 FINDINGS: Lung bases: Unremarkable. No mass. No consolidation. ABDOMEN: Liver: Peripheral wedge-shaped areas of decreased enhancement of the in the periphery of the liver. Possible perfusion phenomenon. No discrete mass lesion is a visible. Gallbladder and bile ducts: Unremarkable. No calcified stones. No ductal dilation. Pancreas: Edema throughout the pancreas which appears mildly fatty infiltrated. Questionable pancreatitis versus secondary edema from a separate process. No ductal dilation. Spleen: Unremarkable. No splenomegaly. Adrenals: Unremarkable. No mass. Kidneys and ureters: There is a 1.5 cm oval calculus in the mid right ureter causing severe right hydronephrosis and delayed enhancement of the right kidney. There is moderate to severe right renal atrophy which suggest this could be a chronic process. Diffuse edema throughout the abdomen and pelvis. There is mild enhancement of the left kidney which is nonspecific but can be seen in sepsis or acute tubular necrosis. Stomach and bowel: Unremarkable. No obstruction. No mucosal thickening. PELVIS: Appendix: No findings to suggest acute appendicitis. Bladder: The urinary bladder is decompressed by Hernandez catheter. Reproductive: Unremarkable as visualized. ABDOMEN and PELVIS: Intraperitoneal space: Bowel loops are nondilated. There is diffuse edema and small amount of free fluid throughout the abdomen and pelvis. No focal acute bowel abnormality, pneumoperitoneum, or abscess is seen. Bones/joints: Moderate osteoarthritic changes of the left hip. There are moderate to severe degenerative changes throughout the spine. No acute fracture or subluxation is seen. Soft tissues: Unremarkable. Vasculature: Unremarkable. No abdominal aortic aneurysm. Lymph nodes: Unremarkable. No enlarged lymph nodes. Tubes, lines and devices: There is an NG tube terminating at the gastroesophageal junction. There is a 5.4 cm hiatal hernia. The NG tube does not reach the main body of the stomach which is only partially distended. IMPRESSION: 1. There is a 1.5 cm oval calculus in the mid right ureter causing severe right hydronephrosis and delayed enhancement of the right kidney. There is moderate to severe right renal atrophy which suggest this could be a chronic process. 2. Diffuse edema throughout the abdomen and pelvis. There is mild enhancement of the left kidney which is nonspecific but can be seen in sepsis or acute tubular necrosis. 3. Bowel loops are nondilated. There is diffuse edema and small amount of free fluid throughout the abdomen and pelvis. No focal acute bowel abnormality, pneumoperitoneum, or abscess is seen. 4. Edema throughout the pancreas which appears mildly fatty infiltrated. Questionable pancreatitis versus secondary edema from a separate process. 5. There is an NG tube terminating at the gastroesophageal junction. There is a 5.4 cm hiatal hernia. The NG tube does not reach the main body of the stomach which is only partially distended. 6. Peripheral wedge-shaped areas of decreased enhancement of the in the periphery of the liver. Possible perfusion phenomenon. No discrete mass lesion is a visible. Electronically signed by: Rah Valdes MD 02/04/23 02:17 AM
--- NOTE | 2023-02-04 02:22 | Procedure Note ---
Procedure Note Date of Service February 04, 2023 Note ARTERIAL LINE PROCEDURE NOTE: Procedure: Arterial Line Placement Proceduralist: Leoncio ALEJANDRE ([facility] Attending: Dr. Schulz Indication: Monitoring on Pressors, frequent blood draws Anesthesia: [x]Lidocaine 1% Emergent Consent was implied as patient is full code, with hemodynamic instability with multiple organ failure, requiring accurate BP and frequent blood draws. No family immediately available. A time-out was completed verifying correct patient, procedure, site, positioning, Allens test was performed to ensure adequate perfusion. Patients RIGHT wrist was prepped and draped in the usual sterile fashion. Ultrasound guidance was used to technology intern the vessel prior to as well as directly aid needle placement. A 20g Arrow arterial line was introduced into the RIGHT RADIAL artery, brisk flash of blood was noted, wire was advanced without resistance. Catheter was threaded, and the needle was removed with appropriate blood return, pressure tubing was attached and good waveform was observed. The patient tolerated the procedure well. The line was sutured in place and sterile dressing was applied Blood Loss: Minimal Complications: None immediately available Artery Identified: YES Direct real time visualization of needle into Artery with ultrasound: YES Complications: NONE immediate Patient tolerated procedure: WELL Coding CPT Codes Tubes, Drains, and Vasc Access - Tubes, Drains, and Vasc Access: [id number] Arterial Cath/Cannulation Sampling/Monitoring/Transfusion ([id number]) [facility] [place] Procedure Codes (Charges) Tubes, Drains, and Vasc Access Procedure 1: Tubes, Drains, and Vasc Access: [id number] Arterial Cath/Cannulation Sampling/Monitoring/Transfusion
--- NOTE | 2023-02-04 02:32 | CT Scan Report ---
Exam(s): CT CHEST With Contrast IV Amt: 90 ml opti 320 EXAM: CT Chest With Intravenous Contrast CLINICAL HISTORY: Reason for exam: Unresponsive. TECHNIQUE: Axial computed tomography images of the chest with intravenous contrast. CTDI is 7.47 mGy and DLP is 525.77 mGy-cm. Automated exposure control was utilized for the study. A dose lowering technique was utilized adhering to the principles of ALARA. CONTRAST: Patient received 90 ml opti 320 of IV contrast COMPARISON: Chest x-ray from July 02, 2015 FINDINGS: Lungs: Unremarkable. No mass. No consolidation. Pleural space: There are mild emphysematous changes scratched that the lungs are well-inflated and clear. No infiltrate or consolidation is seen. No pneumothorax or pleural effusion. Heart: Unremarkable. No cardiomegaly. No significant pericardial effusion. No significant coronary artery calcifications. Bones/joints: Increased kyphosis of the thoracic spine with mild to moderate multilevel degenerative changes. No acute fracture or spinal stenosis is seen. No bone lesion. No dislocation. Soft tissues: Unremarkable. Vasculature: The thoracic aorta is nondilated. There is no aneurysm or dissection. The pulmonary arterial tree is well opacified with contrast. No pulmonary embolism is identified. Lymph nodes: Unremarkable. No enlarged lymph nodes. Tubes, lines and devices: Endotracheal tube in good position. There is an NG tube extending into the lower esophagus within a hiatal hernia, short of the stomach. IMPRESSION: 1. Endotracheal tube in good position. There is an NG tube extending into the lower esophagus within a hiatal hernia, short of the stomach. 2. The thoracic aorta is nondilated. There is no aneurysm or dissection. 3. The pulmonary arterial tree is well opacified with contrast. No pulmonary embolism is identified. 4. There are mild emphysematous changes scratched that the lungs are well-inflated and clear. No infiltrate or consolidation is seen. No pneumothorax or pleural effusion. Electronically signed by: Rah Valdes MD 02/04/23 02:31 AM
[2023-02-04] MEDS ORDERED: Heparin IV Adult Wt-Based Standard *NO* INITIAL Bolus Protocol IV STA (03:04)
[2023-02-04] MEDS ORDERED: Heparin IV Adult Wt-Based Standard w/ INITIAL Bolus Protocol IV STA (03:04)
[2023-02-04] MEDS: propofoL 1,000 MG/100 ML VIAL IV SCH ×2 (03:07→15:32)
[2023-02-04] MEDS: SODIUM BICARBONATE 8.4% 150 MEQ in DEXTROSE 5% 1,000 ML IV SCH ×2 (03:09→10:58)
[2023-02-04] MEDS ORDERED: HEPARIN SODIUM/DEXTROSE 25,000 UNITS/500 ML BAG IV SCH (03:30)
--- NOTE | 2023-02-04 03:43 | Urology Consultation ---
<Statement entered by Kanu Garcia MD - 02/04/23 09:59> I have discussed Ms. Vogel's case with Simon Olmos PA-C and agree with the above documentation. CT scan makes note of a large right ureteral stone with associated right hydronephrosis and parenchymal thinning. The stone is likely a chronic finding, it is unclear how much her stone and suspected urinary tract infection are contributing to her current clinical picture. Based on the size of the stone and chronicity, I think stent placement would be very challenging. More definitive drainage of the kidney would be provided with nephrostomy tube, but it was unclear whether she would be stable for transfer, or how aggressive patient/family wanted to be with pursuit of care given her other comorbidities. Eventually the family was contacted and I was told that the decision had been made to make her DNR with no escalation of care. For now, we will hold off urologic intervention such as stent placement. Continue to monitor Hernandez catheter and can hand irrigate if needed to remove obstructive clots. -Kanu Garcia MD. Date of Consultation February 04, 2023 Assessment & Plan (1) Sepsis: (2) Nephrolithiasis: Patient has been admitted to the intensive care unit where the patient is critically ill. I discussed the case with my attending physician Dr. Garcia and from a urologic perspective we recommend the following: The patient's records were reviewed The patient is known to have right neph rolithiasis on CT scans dating back to 2015. Patient's current CT scan it appears that the findings are chronic in nature as her kidney is not well-perfused and does not appear to be functioning. With the above findings and mine any attempt at ureteral stent would merely be for potential source control. Based on the appearance of the kidney stone on her current CT scan it appears that a percutaneous nephrostomy may be the best course of action The possibility of percutaneous nephrostomy tube was discussed with the ICU staff and attempts are currently being made to discuss with patient's family to determine the level of care they wish the patient to receive. If the patient's family wishes to pursue percutaneous nephrostomy transfer to facility will be considered Additional urologic recommendations at [facility] will be made once family can be reached and goals of care can be established For the present time would recommend continuing broad-spectrum antibiotics and fluid resuscitation which are currently being undertaken by the intensive care unit staff Additional recommendations will be forthcoming based on her clinical course as unfolds as well as discussion with family members. History of Present Illness Reason for Consultation: Sepsis Nephrolithiasis Attending Physician: Jodee Carrasco MD History of Present Illness This is a 72-year-old female who I was asked to see by the critical care service at approximately 2:38 AM on 02/04/2023. I arrived to the patient's bedside within 5 minutes of receiving this call. At the time of my encounter with the patient she was intubated and sedated and can therefore provide no meaningful history. There is no family present at bedside and they were attempted to be reached without success. The historical portion of this consultation was obtained from review of old records as well as discussion with the critical care service and review of current records. This 72-year-old female was brought into the hospital via EMS after being found down at home for an unspecified time. Per reports from EMS the patient has not been heard from in approximately 1 week. She was found facedown on the ground by her daughter at home and EMS was summoned where she was intubated in the field. Upon arrival to the emergency department the patient was found to be hypothermic and bradycardic. No additional information could be obtained. Available labs include a CBC were white blood cell count was 25.2. Hemoglobin, hematocrit, and platelet count were all normal. A VBG showed a pH of 7.0 with a pCO2 of 62. Her bicarb level was 17. Chemistry profile showed sodium was within the normal range at 137. Potassium was also noted to be normal. BUN was elevated at 57 and creatinine was elevated at 2.1. Lactic acid level was eleva jacquelyn at 9.5. The patient did not have any elevation of her bilirubin but transaminases were elevated at 128 and 66 respectively. Alkaline phosphatase was elevated at 155. Her total creatinine kinase level was 710. Lipase was elevated at 9680. Urinalysis did show turbid urine with pyuria with greater than 30 white blood cells per high-power field and 4+ bacteria. Toxicology screen was positive only for benzodiazepine. Blood cultures have been ordered and a urine culture has been sent. Available imaging since patient has arrived to the hospital includes a cervical spine CT scan which showed no acute fractures or subluxations. CT scan of the head showed the patient had a left frontal scalp hematoma with some periorbital edema. No skull fractures were identified. 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 No intracranial hemorrhage was noted. A chest x- ray did not appear to have any evidence of infiltrate or pneumonia. A facial CT scan showed findings similar to the head CT where patient was noted to have left periorbital and supraorbital scalp swelling with no facial fractures noted. There is no retrobulbar hematoma. A CT scan of the chest showed no evidence of pulmonary emboli. There is no evidence of a aortic aneurysm or dissection. No pneumonia or lung infiltrates were noted. A CT scan of the abdomen pelvis was performed that showed a 1.5 cm mid right ureteral kidney stone causing severe right hydronephrosis with delayed enhancement of the right kidney. Severe renal atrophy was noted suggestive that the right-sided kidney findings were chronic in nature. There is no pneumoperitoneum or intra-abdominal abscess noted. There is pancreatic edema raising the concern of pancreatitis. The patient had a duplex of the left upper extremity showing the patient had significant blood clot in the left radial artery. The brachial artery and the ulnar artery appeared to be patent on this study. Since arrival to the hospital the patient has received fluid resuscitation and she has been placed on broad-spectrum antibiotics in the form of cefepime and doxycycline. In addition the patient has had a Hernandez catheter placed where patient had gross hematuria with some blood clots noted. Her Hernandez catheter flushed and irrigated easily At the time of my interview the patient was intubated and sedated. Allergies Allergy/AdvReac Type Severity Reaction Status Date / Time No Known Allergies Allergy Unknown Verified 02/03/23 22:15 Home Medications Medication Instructions Recorded Confirmed Type dextroamphetamine-amphetamine 20 20 mg PO TID 03/19/19 02/03/23 History mg tablet (Adderall) ferrous sulfate 325 mg (65 mg 325 mg PO DAILY 03/19/19 02/03/23 History iron) tablet tramadol 50 mg tablet 100 mg PO Q6H PRN Pain 03/19/19 02/03/23 History valacyclovir 1 gram tablet 1,000 mg PO BID PRN as needed 09/24/20 02/03/23 History (Valtrex) cinacalcet 60 mg tablet 60 mg PO BID #60 tabs 12/20/22 02/03/23 Rx Patient History Medical History Vitamin D deficiency Kyphosis Attention 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 hyperactivity Fatigue Hypercalcemia Hyperparathyroidism Nephrolithiasis Kidney stone on right side Hydronephrosis with urinary obstruction due to renal calculus Dental caries Anemia (12/22/12) H/O endoscopy Fecal impaction of colon (06/05/13) Surgical History H/O: section H/O colonoscopy Social History Smoking Status: Unknown if ever smoked marital status: current occupational status: retired Review of Systems Review of Systems: Unobtainable due to cognitive status Physical Exam Constitutional: + ill appearing and + thin Eyes: Patient had a significant amount of swelling and edema around her left orbit. Patient had an apparent pressure sore on the lateral aspect of her face adjacent to her left eye. Neck: trachea midline Respiratory: Breath sounds are present bilaterally and aided by ventilator Cardiovascular: Rate/Rhythm: regular rate and regular rhythm Vessels: dorsalis pedis pulses present Gastrointestinal (Abdomen): Abdomen is soft and nondistended Musculoskeletal: Patient's extremities are cool but patient had palpable pulses in her feet without apparent mottling. The patient's left forearm appeared mottled and tense. I could not palpate pulses in her left arm. The patient had an arterial line in the right radial artery. Neurologic: Patient is intubated and sedated on a ventilator and therefore neurologic exam could not be performed Results & Data Vital Signs (Past 12 Hours) Vital Signs Temp Pulse Resp BP Pulse Ox O2 Del Method O2 Flow Rate 02/04/23 01:20 29.8 C L 02/04/23 01:10 88/66 L 02/04/23 01:10 52 L 31 H 94 02/04/23 01:00 85/62 L 02/04/23 01:00 50 L 32 H 97 02/04/23 00:50 84/59 L 02/04/23 00:50 49 L 34 H 97 02/04/23 00:40 49 L 34 H 98/64 L 98 02/04/23 00:30 49 L 34 H 124/76 98 02/04/23 00:20 45 L 33 H 114/71 100 02/04/23 00:10 44 L 33 H 108/70 99 02/04/23 00:00 43 L 34 H 110/71 99 02/03/23 23:50 40 L 33 H 106/76 99 02/03/23 23:45 43 L 32 H 108/75 98 02/03/23 23:40 42 L 34 H 100/73 98 02/03/23 23:35 41 L 35 H 93/66 L 96 02/03/23 23:30 40 L 34 H 88/71 L 96 02/03/23 23:25 40 L 34 H 98/69 L 97 02/03/23 23:20 40 L 35 H 103/70 99 02/03/23 23:15 39 L 34 H 99 02/03/23 23:15 106/72 02/03/23 23:10 109/76 02/03/23 23:10 40 L 33 H 100 02/03/23 23:05 42 L 34 H 98 02/03/23 23:05 100/72 02/03/23 23:00 27.7 C L 02/03/23 23:00 39 L 32 H 97 02/03/23 23:00 98/63 L 02/03/23 22:58 39 L 33 H 97 02/03/23 22:58 87/66 L 02/03/23 22:54 39 L 38 H 100 02/03/23 22:40 39 L 37 H 100 02/03/23 22:36 37 L 17 95 02/03/23 22:36 115/75 02/03/23 22:32 38 L 36 H 97 02/03/23 22:32 112/71 02/03/23 22:30 38 L 34 H 100 Mechanical Vent 50 02/03/23 22:30 02/03/23 22:27 26 H 02/03/23 22:20 98/70 L 02/03/23 22:20 40 L 33 H 75 L 02/03/23 22:16 86/64 L 02/03/23 22:16 38 L 28 H 100 02/03/23 22:10 38 L 35 H 100 Mechanical Vent 02/03/23 22:02 38 L 8 L 02/03/23 22:02 38 L 02/03/23 21:59 34 H 02/03/23 21:49 FiO2 02/04/23 01:20 02/04/23 01:10 02/04/23 01:10 02/04/23 01:00 02/04/23 01:00 02/04/23 00:50 02/04/23 00:50 02/04/23 00:40 02/04/23 00:30 02/04/23 00:20 02/04/23 00:10 02/04/23 00:00 02/03/23 23:50 02/03/23 23:45 02/03/23 23:40 02/03/23 23:35 02/03/23 23:30 02/03/23 23:25 02/03/23 23:20 02/03/23 23:15 02/03/23 23:15 02/03/23 23:10 02/03/23 23:10 02/03/23 23:05 02/03/23 23:05 02/03/23 23:00 02/03/23 23:00 02/03/23 23:00 02/03/23 22:58 02/03/23 22:58 02/03/23 22:54 02/03/23 22:40 02/03/23 22:36 02/03/23 22:36 02/03/23 22:32 02/03/23 22:32 02/03/23 22:30 02/03/23 22:30 50 02/03/23 22:27 50 02/03/23 22:20 02/03/23 22:20 02/03/23 22:16 02/03/23 22:16 02/03/23 22:10 100 02/03/23 22:02 02/03/23 22:02 02/03/23 21:59 100 02/03/23 21:49 100 PG Care Time/CCT Total # of Minutes Spent Total Time Spent with Patient: Total time spent is greater than 50% in coordination of care (as documented) at patient's floor/unit and/or counseling patient: Coding Level of Care Code 72153 INT INP/OBS CARE 3/75MIN Diagnoses Sepsis A41.9 Nephrolithiasis N20.0
[2023-02-04] MEDS ORDERED: Patient's HEIGHT &/or WEIGHT Needed STA (03:49)
[2023-02-04 03:54] LABS: Anion Gap 18 (3-11); BUN Creatinine Ratio 29.8 (10-20); Blood Urea Nitrogen 59 mg/dl (6-23); Calcium 7.2 mg/dl (8.6-10.3); Carbon Dioxide 17 mmol/L (21-32); Chloride 104 mmol/L (98-107); Est GFR (African American) 28.9 ml/min; Glucose 147 mg/dl (70-99(Fasting)); Potassium 3.6 mmol/L (3.5-5.1); Sodium 139 mmol/L (136-145)
--- NOTE | 2023-02-04 03:57 | Ultrasound Report ---
Exam(s): US ARTERIAL LEFT UPPER EXTREMITY EXAM: US Duplex Left Upper Extremity Arteries CLINICAL HISTORY: Reason for exam: eval for occlusion of radial artery/perfusion. TECHNIQUE: Real-time duplex ultrasound scan of the left upper extremity arteries integrating B-mode two-dimensional vascular structure, Doppler spectral analysis and color flow Doppler imaging. COMPARISON: No relevant prior studies available. FINDINGS: Left brachial artery: Left distal brachial artery is patent with multiphasic waveforms. Left radial artery: There is acute thrombosis of the left radial artery at its origin and throughout the course in the forearm. Soft tissues: Unremarkable. 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 Communications: Call Doctor Acute arterial occlusion/ critical stenosis Electronically signed by: Tobias Wood M.D. 02/04/23 03:57 AM
[2023-02-04] MEDS ORDERED: DOXYCYCLINE HYCLATE 100 MG in DEXTROSE 5% MINI-B 100 ML IV SCH (04:00)
[2023-02-04 04:29] LABS: INR 1.8 (0.9-1.1); Prothrombin Time 19.3 Seconds (9.0-12.0)
[2023-02-04 04:34] LABS: ANTI-Xa, UFH(UnfractionatedHep < 0.10 IU/ml (0.3-0.7); Partial Thromboplastin Ratio 1.7; Partial Thromboplastin Time 48 Seconds (21-31)
[2023-02-04 04:55] LABS: iSTAT Art Bld Gas pCO2 Correct 22 mmHg (35-46); iSTAT Arterial Blood Gas HCO3 16 meg/L (19-24); iSTAT Arterial Blood Gas pCO2 29 mmHg (35-46); iSTAT Arterial Blood Gas pH 7.34 (7.35-7.45); iSTAT Arterial Blood Gas pO2 228 mmHg (80-95); iSTAT Arterial Blood Gas pO2 C 200; iSTAT Carbon Dioxide 17 mmol/L (24-31); iSTAT FiO2 40 %; iSTAT Hematocrit 28 % (37-47); iSTAT Hemoglobin 9.5 g/dl (12.0-16.0); iSTAT Potassium 3.3 mmol/L (3.3-5.0); iSTAT Site Art Line; iSTAT Sodium 138 mmol/L (135-144)
[2023-02-04 04:55] LABS: iSTAT Art Bld Gas pCO2 Correct 23 mmHg (35-46); iSTAT Art Bld Gas pH Corrected 7.465 (7.35-7.45); iSTAT Arterial Blood Gas HCO3 18 meg/L (19-24); iSTAT Arterial Blood Gas pCO2 29 mmHg (35-46); iSTAT Arterial Blood Gas pH 7.39 (7.35-7.45); iSTAT Arterial Blood Gas pO2 160 mmHg (80-95); iSTAT Arterial Blood Gas pO2 C 133; iSTAT Carbon Dioxide 18 mmol/L (24-31); iSTAT FiO2 30 %; iSTAT Hematocrit 29 % (37-47); iSTAT Hemoglobin 9.9 g/dl (12.0-16.0); iSTAT Potassium 3.6 mmol/L (3.3-5.0); iSTAT Site Art Line; iSTAT Sodium 136 mmol/L (135-144)
[2023-02-04] MEDS ORDERED: CEFEPIME 1,000 MG in SYRINGE 0 ML IV SCH (05:00)
[2023-02-04 05:02] LABS: Hematocrit (blood only) 28.6 % (37.0-47.0); Hemoglobin 10.1 g/dl (12.0-16.0); Mean Corpuscular Hemoglobin 29.2 pg (25.0-34.0); Mean Corpuscular Hgb Conc 35.3 g/dL (32.0-36.0); Mean Corpuscular Volume 82.7 fL (80.0-100.0); Mean Platelet Volume 8.8 fL (9.4-12.4); Platelet Count 127 K/uL (130-400); RDW Coefficient of Variation 12.7 % (11.5-14.5); RDW Standard Deviation 37.9 fL (36.4-46.3); Red Blood Count 3.46 M/uL (4.20-5.40); White Blood Count 21.61 K/ul (4.8-10.8)
[2023-02-04 05:15] LABS: BUN Creatinine Ratio 29.7 (10-20); Calcium 7.2 mg/dl (8.6-10.3); Creatinine Clr Calc Pharmacy 15.9 ml/min; Est GFR (African American) 28.3 ml/min; Est GFR (Non-African American) 24.4 ml/min; Phosphorus 7.2 mg/dl (2.5-4.9); Potassium 3.6 mmol/L (3.5-5.1)
[2023-02-04 05:26] LABS: Fibrinogen 123 mg/dl (184-400)
[2023-02-04 05:29] LABS: Basophils # (auto) 0.06 K/uL (0.00-0.20); Basophils % (auto) 0.3 %; Immature Granulocytes # (auto) 0.57 K/uL (0.01-0.20); Immature Granulocytes % (auto) 2.6 %; Lymphocytes # (auto) 0.38 K/uL (1.20-3.40); Lymphocytes % (auto) 1.8 %; Monocytes # (auto) 0.22 K/uL (0.11-0.59); Neutrophils # (auto) 20.38 K/uL (1.40-6.50); Neutrophils % (auto) 94.3 %
[2023-02-04] MEDS ORDERED: PLASMA-LYTE A 500 ML IV ONE (06:14)
[2023-02-04] MEDS: NOREPINEPHRINE/D5W 4 MG/250 ML PLCT IV SCH ×2 (06:53→14:51)
--- NOTE | 2023-02-04 06:57 | XRay Report ---
XR chest 1V portable HISTORY: ETT tube placement COMPARISON: Chest 02/03/2023. FINDINGS: Endotracheal tube terminates 3.3 cm from the breana. Slightly rotated study. No pneumothora x. No pleural effusions. The heart is normal in size. No focal lung consolidations to suggest a pneum onia. No evidence for pulmonary edema. Emphysema. Moderate hiatus hernia. IMPRESSION: The endotracheal tube terminates 3.3 cm from the breana. ACT 112: Negative or not required by law. Electronically signed by: Christiano Adler M.D. 02/04/2023 6:56 AM
--- NOTE | 2023-02-04 07:41 | History & Physical Report ---
Date of Service February 04, 2023 Assessment & Plan (1) Unresponsive: Plan: 72-year-old female with past med significant for hypercalcemia, primary hypothyroidism, GERD, CKD stage III, restless leg syndrome, depression, attention deficit disorder, anxiety, mood disorder history of C. difficile, herpes simplex, facial cellulitis, was found unresponsive at home. Seems patient did not communicate with family for about a week and daughter found her unresponsive at home. EMS intubated in the field as patient was not protecting her airway. On presentation her temperature was 27.7 C, bradycardic with heart rates in 30s and 40s, blood pressure soft, WBC 25, VBG pH 7.05, creatinine 2.18, lactic acid 9.5, CPK 710, lipase 9680 UA positive, MRSA screen came back positive, drug screen came back positive for benzos. Patient found to have injuries which seem to be like pressure ulcers on left orbit region, left shoulder and left thigh region. Her left hand was also red and mottled with poor pulses. 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 No hemorrhage seen. Face CT shows left periorbital and supraorbital scalp swelling. No facial fractures seen. CT cervical spine shows no fractures. Chest CT with IV contrast shows, no PE seen, mild emphysematous changes. CT abdomen pelvis with IV contrast shows 1.5 cm calculus in the mid right ureter causing severe right hydronephrosis and delayed enhancement of the right kidney. Moderate to severe right renal atrophy could be chronic and mild enhancement the left kidney which is nonspecific but can be seen in sepsis or acute tubular necrosis. Diffuse edema of the abdomen pelvis . Questionable pancreatitis and peripheral wedge-shaped areas of decreased enhancement in the periphery of the liver. Left upper extremity arterial Doppler shows acute thrombosis of left radial artery at its origin and throughout the course of the forearm. Patient was given Rocephin and warm IV fluids and placed on Breanna hugger in the ER. Also received sodium bicarb.Received IV fluids about 4 L but did not made urine yet. ICU discussed with urology and based on the findings urology recommend nephrostomy tubes if aggressive management decided. Critical care care talked with vascular surgery and was recommend IV heparin for now. Called daughter and notified of the findings and requested to come to the hospital for further discussion regarding further management . Daughter and came to the hospital. Critical care discussed with daughter and her and was notified patient current status and very poor prognosis. Daughter was given the options of continuing current management with fluids and antibiotics closely follow the hemodynamics and labs and and monitor her hypothermia and see how she does and if deteriorates and can decide about DNR and comfort care or for terminal extubation and comfort care given patient poor prognosis or transfer to tertiary care for nephrostomy tubes and further management. Daughter's fathers seems to physician. Family decided DNR for now and continue current management for now. Reviewing endocrinology notes from February 2022 because of her primary hyperparathyroidism and hypercalcemia surgery was discussed at each visit but patient seemed too afraid for surgery ,seems she also declined trial of cinacalcet early but later agreed to take it. Seems there was a plan for lithotripsy and stent placement 2015 for obstructing stone in the proximal right ureter but seems was never accomplished. Unresponsive Found unresponsive at home for unknown time. Daughter talked to her about 1 week ago Lactic acidosis. Lactic acid 9.5 on presentation Hypothermia Elevated leukocytosis Bradycardia Possible septic shock from UTI and obstructing right ureteral stone and severe hydronephrosis. Also found to have possible with elevated lipase and pancreatitis and edema the pancreas on CT scan Received IV fluids and on breanna hugger for hypothermia Imaging studies as as mentioned in H&P IV fluids as per critical care Currently on IV cefepime and IV doxycycline Will follow cultures Urology recommended nephrostomy tubes Critical care discussed with the daughter and her in ICU and her father who is a physician was on the phone and notified patient for condition and very poor prognosis offered continue current management versus terminal extubation versus transfer pressure care. Family decided for DNR status. Patient is continue current management of ventilator support, IV fluids and antibiotics. Currently on bicarb drip .follow the labs closely. Monitor hemodynamics closely. Monitor the temperatures. Greatly appreciate critical care help Continue close monitoring ICU Acute thrombus in the left renal artery IV heparin Vascular surgery TRAE and currently stage III Baseline creatinine 1.3 Plan creatinine of 2.1 Follow the labs closely History of hyperparathyroidism and hypercalcemia Will follow the labs DVT prophylaxis On IV heparin Close monitoring ICU DNR/DNI Very Poor Prognosis History of Present Illness Chief Complaint: Unresponsive Primary Care Provider: Ish Medina MD 72-year-old female with past med significant for hypercalcemia, primary hypothyroidism, GERD, CKD stage III, restless leg syndrome, depression, attention deficit disorder, anxiety, mood disorder history of C. difficile, herpes simplex, facial cellulitis, was found unresponsive at home. Seems patient did not communicate with family for about a week and daughter found her unresponsive at home. EMS intubated in the field as patient was not protecting her airway. On presentation her temperature was 27.7 C, bradycardic with heart rates in 30s and 40s, blood pressure soft, WBC 25, VBG pH 7.05, creatinine 2.18, lactic acid 9.5, CPK 710, lipase 9680 UA positive, MRSA screen came back positive, drug screen came back positive for benzos. Patient found to have injuries which seem to be like pressure ulcers on left orbit region, left shoulder and left thigh region. Her left hand was also red and mottled with poor pulses. 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 No hemorrhage seen. Face CT shows left periorbital and supraorbital scalp swelling. No facial fractures seen. CT cervical spine shows no fractures. Chest CT with IV contrast shows, no PE seen, mild emphysematous changes. CT abdomen pelvis with IV contrast shows 1.5 cm calculus in the mid right ureter causing severe right hydronephrosis and delayed enhancement of the right kidney. Moderate to severe right renal atrophy could be chronic and mild enhancement the left kidney which is nonspecific but can be seen in sepsis or acute tubular necrosis. Diffuse edema of the abdomen pelvis . Questionable pancreatitis and peripheral wedge-shaped areas of decreased enhancement in the periphery of the liver. Left upper extremity arterial Doppler shows acute thrombosis of left radial artery at its origin and throughout the course of the forearm. Patient was given Rocephin and warm IV fluids and placed on Breanna hugger in the ER. Also received sodium bicarb.Received IV fluids about 4 L but did not made urine yet. ICU discussed with urology and based on the findings urology recommend nephrostomy tubes if aggressive management decided. Critical care care talked with vascular surgery and was recommend IV heparin for now. Called daughter and notified of the findings and requested to come to the hospital for further discussion regarding further management . Daughter and moreno villarreal came to the hospital. Critical care discussed with daughter and her and was notified patient current status and very poor prognosis. Daughter was given the options of continuing current management with fluids and antibiotics closely follow the hemodynamics and labs and and monitor her hypothermia and see how she does and if deteriorates and can decide about DNR and comfort care or for terminal extubation and comfort care given patient poor prognosis or transfer to tertiary care for nephrostomy tubes and further management. Daughter's fathers seems to physician. Family decided DNR for now and continue current management for now. Reviewing endocrinology notes from February 2022 because of her primary hyperparathyroidism and hypercalcemia surgery was discussed at each visit but patient seemed too afraid for surgery ,seems she also declined trial of cinacalcet early but later agreed to take it. Seems there was a plan for lithotripsy and stent placement 2015 for obstructing stone in the proximal right ureter but seems was never accomplished. Past medical history. As mentioned above Past surgical history. Bilateral bunion correction. . Colonoscopy. Cystourethroscopy with lithotripsy. EGD with biopsy. Facelift. Nasal defect repair Social history. Smoked 1 pack of 10 years. Quit 30 years ago. No alcohol use. No drug use. Family history. No family history on file Allergies Allergy/AdvReac Type Severity Reaction Status Date / Time No Known Allergies Allergy Unknown Verified 02/03/23 22:15 Home Medications Medication Instructions Recorded Confirmed Type dextroamphetamine-amphetamine 20 20 mg PO TID 03/19/19 02/03/23 History mg tablet (Adderall) ferrous sulfate 325 mg (65 mg 325 mg PO DAILY 03/19/19 02/03/23 History iron) tablet tramadol 50 mg tablet 100 mg PO Q6H PRN Pain 03/19/19 02/03/23 History valacyclovir 1 gram tablet 1,000 mg PO BID PRN as needed 09/24/20 02/03/23 History (Valtrex) cinacalcet 60 mg tablet 60 mg PO BID #60 tabs 12/20/22 02/03/23 Rx Past Med/Surg History Medical History Vitamin D deficiency Kyphosis Attention 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 hyperactivity Fatigue Hypercalcemia Hyperparathyroidism Nephrolithiasis Kidney stone on right side Hydronephrosis with urinary obstruction due to renal calculus Dental caries Anemia (12/22/12) H/O endoscopy Fecal impaction of colon (06/05/13) Surgical History H/O: section H/O colonoscopy Social History Smoking Status: Unknown if ever smoked Preferred Language: [employer] [place] [employer] Required: No marital status: Current Living Situation: Alone Current Living Situation Comment: Lives at home alone current occupational status: retired Review of Systems Review of Systems: Unobtainable due to reduced consciousness Physical Exam Physical Exam: General- s/p intubated. Head- Bruise seen on left orbit and surrounding regions. Eyes- pupils sluggish to react. Left orbit swollen and erythematous. Neck- no JVD. Lungs- clear to auscultation No wheezing or crackles. Heart- Bradycardia; no murmur, no gallop Abdomen- sluggish bowel sounds, soft, no distension. Extremities- no pretibial edema, Left hand is erythematous and mottled. Neuro- unresponsive, s.p intubated. Skin- bruise/pressure ulcer seen on left temporal region, left shoulder and left hip region. Results & Data Results & Data Vital Signs (Past 12 Hours) Vital Signs Pulse Resp BP Pulse Ox O2 Del Method O2 Flow Rate FiO2 02/04/23 00:00 43 L 34 H 110/71 99 02/03/23 23:50 40 L 33 H 106/76 99 02/03/23 23:45 43 L 32 H 108/75 98 02/03/23 23:40 42 L 34 H 100/73 98 02/03/23 23:35 41 L 35 H 93/66 L 96 02/03/23 23:30 40 L 34 H 88/71 L 96 02/03/23 23:25 40 L 34 H 98/69 L 97 02/03/23 23:20 40 L 35 H 103/70 99 02/03/23 23:15 39 L 34 H 99 02/03/23 23:15 106/72 02/03/23 23:10 109/76 02/03/23 23:10 40 L 33 H 100 02/03/23 23:05 42 L 34 H 98 02/03/23 23:05 100/72 02/03/23 23:00 39 L 32 H 97 02/03/23 23:00 98/63 L 02/03/23 22:58 39 L 33 H 97 02/03/23 22:58 87/66 L 02/03/23 22:54 39 L 38 H 100 02/03/23 22:40 39 L 37 H 100 02/03/23 22:36 37 L 17 95 02/03/23 22:36 115/75 02/03/23 22:32 38 L 36 H 97 02/03/23 22:32 112/71 02/03/23 22:30 38 L 34 H 100 Mechanical Vent 50 02/03/23 22:30 50 02/03/23 22:27 26 H 50 02/03/23 22:20 98/70 L 02/03/23 22:20 40 L 33 H 75 L 02/03/23 22:16 86/64 L 02/03/23 22:16 38 L 28 H 100 02/03/23 22:10 38 L 35 H 100 Mechanical Vent 100 02/03/23 22:02 38 L 8 L 02/03/23 22:02 38 L 02/03/23 21:59 34 H 100 02/03/23 21:49 100 Diagnostic Findings Laboratory Results WBC 21.61 K/ul (4.8-10.8) H 02/04/23 04:17 RBC 3.46 M/uL (4.20-5.40) L 02/04/23 04:17 Hgb 10.1 g/dl (12.0-16.0) L 02/04/23 04:17 POC Hgb 9.9 g/dl (12.0-16.0) L 02/04/23 04:32 Hct 28.6 % (37.0-47.0) L 02/04/23 04:17 POC Hct 29 % (37-47) L 02/04/23 04:32 MCV 82.7 fL (80.0-100.0) 02/04/23 04:17 MCH 29.2 pg (25.0-34.0) 02/04/23 04:17 MCHC 35.3 g/dL (32.0-36.0) 02/04/23 04:17 RDW Std Deviation 37.9 fL (36.4-46.3) 02/04/23 04:17 RDW Coeff of Kika 12.7 % (11.5-14.5) 02/04/23 04:17 Plt Count 127 K/uL (130-400) L 02/04/23 04:17 MPV 8.8 fL (9.4-12.4) L 02/04/23 04:17 Immature Gran % (Auto) 2.6 % 02/04/23 04:17 Neut % (Auto) 94.3 % 02/04/23 04:17 Lymph % (Auto) 1.8 % 02/04/23 04:17 Mckean % (Auto) 1.0 % 02/04/23 04:17 Eos % (Auto) 0.0 % 02/04/23 04:17 Baso % (Auto) 0.3 % 02/04/23 04:17 Neut # (Auto) 20.38 K/uL (1.40-6.50) H 02/04/23 04:17 Lymph # (Auto) 0.38 K/uL (1.20-3.40) L 02/04/23 04:17 Mckean # (Auto) 0.22 K/uL (0.11-0.59) 02/04/23 04:17 Eos # (Auto) 0.00 K/uL (0.00-0.50) 02/04/23 04:17 Baso # (Auto) 0.06 K/uL (0.00-0.20) 02/04/23 04:17 Immature Gran # (Auto) 0.57 K/uL (0.01-0.20) H 02/04/23 04:17 PT 19.3 Seconds (9.0-12.0) H 02/04/23 03:21 INR 1.8 (0.9-1.1) H 02/04/23 03:21 APTT 48 Seconds (21-31) H 02/04/23 03:21 PTT Ratio 1.7 02/04/23 03:21 Fibrinogen 123 mg/dl (184-400) L 02/04/23 03:21 Heparin Anti-Xa, Unfract < 0.10 IU/ml (0.3-0.7) L 02/04/23 03:21 Sample Site Art Line 02/04/23 04:32 POC pH 7.39 (7.35-7.45) 02/04/23 04:32 POC pCO2 29 mmHg (35-46) L 02/04/23 04:32 POC pO2 160 mmHg (80-95) H 02/04/23 04:32 POC HCO3 18 blanca/L (19-24) L 02/04/23 04:32 POC Total CO2 18 mmol/L (24-31) L 02/04/23 04:32 POC Base Excess -7.0 blanca/L (-9-1.8) 02/04/23 04:32 ABG pH (Temp Correct) 7.465 (7.35-7.45) H 02/04/23 04:32 ABG pCO2 (Temp Corrct 23 mmHg (35-46) L 02/04/23 04:32 POC ABG pO2 at Pt Temp 133 02/04/23 04:32 POC ABG O2 Sat 99.0 % (90-95) H 02/04/23 04:32 Pawan Test NA 02/04/23 04:32 VBG pH 7.05 (7.36-7.41) L 02/03/23 22:24 VBG pCO2 62 mmHg (38-50) H 02/03/23 22:24 VBG pO2 51 mmHg 02/03/23 22:24 VBG HCO3 17 mmol/L 02/03/23 22:24 VBG O2 Saturation 70.1 % 02/03/23 22:24 VBG Base Excess -13.8 mEq/L 02/03/23 22:24 O2 Delivery Device Ventilator 02/04/23 04:32 POC O2 Rate 22 02/04/23 04:32 POC FiO2 30 % 02/04/23 04:32 Tidal Volume 350 02/04/23 04:32 PEEP 5 02/04/23 04:32 POC Sodium 136 mmol/L (135-144) 02/04/23 04:32 Sodium 138 mmol/L (136-145) 02/04/23 04:17 POC Potassium 3.6 mmol/L (3.3-5.0) 02/04/23 04:32 Potassium 3.6 mmol/L (3.5-5.1) 02/04/23 04:17 POC Chloride 103 mmol/L (101-112) 02/03/23 22:25 Chloride 102 mmol/L (98-107) 02/04/23 04:17 Carbon Dioxide 18 mmol/L (21-32) L 02/04/23 04:17 POC Total CO2 21 mmol/L (24-31) L 02/03/23 22:25 Anion Gap 18 (3-11) H 02/04/23 04:17 POC Anion Gap 15.0 mmol/L (16-25) L 02/03/23 22:25 POC BUN 53 mg/dl (7-18) H 02/03/23 22:25 BUN 60 mg/dl (6-23) H 02/04/23 04:17 Creatinine 2.02 mg/dl (0.6-1.2) H 02/04/23 04:17 POC Creatinine 2.4 mg/dl (0.6-1.3) H 02/03/23 22:25 Est Cr Clr Drug Dosing 15.9 ml/min 02/04/23 04:17 Est GFR ( Amer) 28.3 ml/min 02/04/23 04:17 Est GFR (Non-Af Amer) 24.4 ml/min 02/04/23 04:17 BUN/Creatinine Ratio 29.7 (10-20) H 02/04/23 04:17 Glucose 180 mg/dl (70-99(Fasting)) H 02/04/23 04:17 POC Glucose (other) 146 mg/dl (70-99) H 02/03/23 22:25 Lactate 6.6 mmol/L (0.4-2.0) H* 02/04/23 05:20 Calcium 7.2 mg/dl (8.6-10.3) L 02/04/23 04:17 POC Ioniz Calcium Damian 1.38 mmol/l (1.12-1.32) H 02/03/23 22:25 Phosphorus 7.2 mg/dl (2.5-4.9) H 02/04/23 04:17 Magnesium 2.0 mg/dl (1.7-2.4) 02/04/23 04:17 Total Bilirubin 0.7 mg/dl (0.2-1.0) 02/03/23 22:24 Direct Bilirubin 0.2 mg/dl (0-0.2) 02/03/23 22:24 AST 128 U/L (13-39) H 02/03/23 22:24 ALT 66 U/L (7-52) H 02/03/23 22:24 Alkaline Phosphatase 155 U/L (34-104) H 02/03/23 22:24 Total Creatine Kinase 710 U/L (26-192) H 02/03/23 22:24 Total Protein 5.8 gm/dl (6.0-8.3) L 02/03/23 22:24 Albumin 2.7 gm/dl (3.4-5.0) L 02/03/23 22:24 Lipase 9680 U/L (11-82) H 02/03/23 22:24 Procalcitonin 0.96 ng/ml (0-0.5) H 02/04/23 06:33 Random Cortisol > 60.00 mcg/dl 02/04/23 06:33 Urine Color Red 02/03/23 23:13 Urine Appearance Turbid (Clear) A 02/03/23 23:13 Urine pH (4.5-7.5) 02/03/23 23:13 Ur Specific [place] 1.019 (1.000-1.030) 02/03/23 23:13 Urine Protein (Negative) 02/03/23 23:13 Urine Glucose (UA) (Negative) 02/03/23 23:13 Urine Ketones (Negative) 02/03/23 23:13 Urine Blood (Negative) 02/03/23 23:13 Urine Nitrite (Negative) 02/03/23 23:13 Urine Bilirubin (Negative) 02/03/23 23:13 Urine Urobilinogen (Negative) 02/03/23 23:13 Ur Leukocyte Esterase (Negative) 02/03/23 23:13 Urine RBC >30 /hpf (0-4) H 02/03/23 23:13 Urine WBC >30 /hpf (0-5) H 02/03/23 23:13 Ur Epithelial Cells 0-5 /lpf (0-5) 02/03/23 23:13 Urine Bacteria 4+ (Negative) H 02/03/23 23:13 Nasal Screen MRSA (PCR) Positive (Negative) A 02/04/23 Unknown Salicylates < 3.0 mg/dl (3.0-30) L 02/03/23 22:24 Urine Opiates Screen Neg (Neg) 02/03/23 23:13 Ur Methadone, Qual Neg (Neg) 02/03/23 23:13 Acetaminophen < 3 ug/ml (10-30) L 02/03/23 22:24 Urine Barbiturates Neg (Neg) 02/03/23 23:13 Ur Phencyclidine (PCP) Neg (Neg) 02/03/23 23:13 U Amphetamin/Meth Scrn Neg (Neg) 02/03/23 23:13 MDMA (Ecstasy) Screen Neg (Neg) 02/03/23 23:13 U Benzodiazepines Scrn Pos (Neg) H 02/03/23 23:13 Ur Cocaine Metabolite Neg (Neg) 02/03/23 23:13 U Marijuana (THC) Screen Neg (Neg) 02/03/23 23:13 Ethyl Alcohol mg/dL < 10.0 mg/dl (<10.0) 02/03/23 23:[address] 02/03/23 22:11 Exam(s): CT C SPINE EXAM: CT Cervical Spine Without Intravenous Contrast CLINICAL HISTORY: Reason for exam: unresponsive. TECHNIQUE: Axial computed tomography images of the cervical spine without intravenous contrast. CTDI is 26.96 mGy and DLP is 671.03 mGy-cm. Automated exposure control was utilized for the study. A dose lowering technique was utilized adhering to the principles of ALARA. COMPARISON: MRI from December 25, 2012 FINDINGS: Vertebrae: Moderate narrowing and osteophytosis of the atlantodental joint. The odontoid process is intact. No acute fracture. Soft tissues: Unremarkable. Vasculature: Mild calcification of the carotid bifurcation bilaterally. Tubes, lines and devices: Endotracheal and NG tube in place. The tips are not visible. DISCS/SPINAL CANAL/NEURAL FORAMINA: C2-C3: Mild degenerative disc disease. No stenosis. C3-C4: Moderate degenerative disc disease. No stenosis. C4-C5: Moderate degenerative disc disease. No stenosis. C5-C6: Moderate degenerative disc disease. No stenosis. C6-C7: Moderate degenerative disc disease. No stenosis. C7-T1: Mild degenerative disc disease. No stenosis. IMPRESSION: Mild to moderate multilevel degenerative disc disease and facet arthrosis throughout the cervical spine. No acute fracture or subluxation is seen. Electronically signed by: Rah Valdes MD 02/03/23 23:[address] 02/03/23 22:11 Exam(s): CT HEAD Without Contrast EXAM: CT Head Without Intravenous Contrast CLINICAL HISTORY: Reason for exam: unresponsive, head trauma. TECHNIQUE: Axial computed tomography images of the head/brain without intravenous contrast. CTDI is 38.43 mGy and DLP is 624.41 mGy-cm. Automated exposure control was utilized for the study. A dose lowering technique was utilized adhering to the principles of ALARA. COMPARISON: December 23, 2012 MRI brain FINDINGS: Brain: Mild cerebral atrophy and periventricular white matter low density consistent with chronic small vessel disease and/or senescent changes. 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 No acute large vessel infarct or intracranial hemorrhage is seen. Ventricles: Unremarkable. No ventriculomegaly. Bones/joints: See below. Soft tissues: Left frontal scalp hematoma. There is preseptal periorbital edema as well. No skull or acute facial fracture is identified. Sinuses: Unremarkable as visualized. No acute sinusitis. Mastoid air cells: Unremarkable as visualized. No mastoid effusion. IMPRESSION: 1. Left frontal scalp hematoma. There is preseptal periorbital edema as well. No skull or acute facial fracture is identified. 2. Mild cerebral atrophy and periventricular white matter low density consistent with chronic small vessel disease and/or senescent changes. 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 No acute large vessel infarct or intracranial hemorrhage is seen. Electronically signed by: Rah Valdes MD 02/03/23 23:[address] 02/03/23 22:39 Exam(s): CT FACIAL Without Contrast EXAM: CT Maxillofacial Without Intravenous Contrast CLINICAL HISTORY: Reason for exam: facial fx?. TECHNIQUE: Axial computed tomography images of the face without intravenous contrast. CTDI is 38.43 mGy and DLP is 624.41 mGy-cm. Automated exposure control was utilized for the study. A dose lowering technique was utilized adhering to the principles of ALARA. COMPARISON: No relevant prior studies available. FINDINGS: Bones/joints: No acute orbital or facial fracture is identified. Soft tissues: Left periorbital and supraorbital scalp swelling. The globes are symmetrical. No retrobulbar hematoma is seen. Orbits: See above. Sinuses: Unremarkable. No air-fluid levels. IMPRESSION: Left periorbital and supraorbital scalp swelling. The globes are symmetrical. No retrobulbar hematoma is seen. No orbital or facial fracture is seen. Electronically signed by: Rah Valdes MD 02/03/23 23:51 PM Abdomen/Pelvis CT 02/04/23 00:07 Exam(s): CT ABDOMEN + PELVIS With Contrast IV Amt: 90 ml opti 320 EXAM: CT Abdomen and Pelvis With Intravenous Contrast CLINICAL HISTORY: Reason for exam: found down. TECHNIQUE: Axial computed tomography images of the abdomen and pelvis with intravenous contrast. CTDI is 7.47 mGy and DLP is 525.77 mGy-cm. Automated exposure control was utilized for the study. A dose lowering technique was utilized adhering to the principles of ALARA. CONTRAST: Patient received 90 ml opti 320 of IV contrast COMPARISON: May 03, 2015 FINDINGS: Lung bases: Unremarkable. No mass. No consolidation. ABDOMEN: Liver: Peripheral wedge-shaped areas of decreased enhancement of the in the periphery of the liver. Possible perfusion phenomenon. No discrete mass lesion is a visible. Gallbladder and bile ducts: Unremarkable. No calcified stones. No ductal dilation. Pancreas: Edema throughout the pancreas which appears mildly fatty infiltrated. Questionable pancreatitis versus secondary edema from a separate process. No ductal dilation. Spleen: Unremarkable. No splenomegaly. Adrenals: Unremarkable. No mass. Kidneys and ureters: There is a 1.5 cm oval calculus in the mid right ureter causing severe right hydronephrosis and delayed enhancement of the right kidney. There is moderate to severe right renal atrophy which suggest this could be a chronic process. Diffuse edema throughout the abdomen and pelvis. There is mild enhancement of the left kidney which is nonspecific but can be seen in sepsis or acute tubular necrosis. Stomach and bowel: Unremarkable. No obstruction. No mucosal thickening. PELVIS: Appendix: No findings to suggest acute appendicitis. Bladder: The urinary bladder is decompressed by Hernandez catheter. Reproductive: Unremarkable as visualized. ABDOMEN and PELVIS: Intraperitoneal space: Bowel loops are nondilated. There is diffuse edema and small amount of free fluid throughout the abdomen and pelvis. No focal acute bowel abnormality, pneumoperitoneum, or abscess is seen. Bones/joints: Moderate osteoarthritic changes of the left hip. There are moderate to severe degenerative changes throughout the spine. No acute fracture or subluxation is seen. Soft tissues: Unremarkable. Vasculature: Unremarkable. No abdominal aortic aneurysm. Lymph nodes: Unremarkable. No enlarged lymph nodes. Tubes, lines and devices: There is an NG tube terminating at the gastroesophageal junction. There is a 5.4 cm hiatal hernia. The NG tube does not reach the main body of the stomach which is only partially distended. IMPRESSION: 1. There is a 1.5 cm oval calculus in the mid right ureter causing severe right hydronephrosis and delayed enhancement of the right kidney. There is moderate to severe right renal atrophy which suggest this could be a chronic process. 2. Diffuse edema throughout the abdomen and pelvis. There is mild enhancement of the left kidney which is nonspecific but can be seen in sepsis or acute tubular necrosis. 3. Bowel loops are nondilated. There is diffuse edema and small amount of free fluid throughout the abdomen and pelvis. No focal acute bowel abnormality, pneumoperitoneum, or abscess is seen. 4. Edema throughout the pancreas which appears mildly fatty infiltrated. Questionable pancreatitis versus secondary edema from a separate process. 5. There is an NG tube terminating at the gastroesophageal junction. There is a 5.4 cm hiatal hernia. The NG tube does not reach the main body of the stomach which is only partially distended. 6. Peripheral wedge-shaped areas of decreased enhancement of the in the periphery of the liver. Possible perfusion phenomenon. No discrete mass lesion is a visible. Electronically signed by: Rah Valdes MD 02/04/23 02:[address] 02/04/23 00:38 Exam(s): CT CHEST With Contrast IV Amt: 90 ml opti 320 EXAM: CT Chest With Intravenous Contrast CLINICAL HISTORY: Reason for exam: Unresponsive. TECHNIQUE: Axial computed tomography images of the chest with intravenous contrast. CTDI is 7.47 mGy and DLP is 525.77 mGy-cm. Automated exposure control was utilized for the study. A dose lowering technique was utilized adhering to the principles of ALARA. CONTRAST: Patient received 90 ml opti 320 of IV contrast COMPARISON: Chest x-ray from July 02, 2015 FINDINGS: Lungs: Unremarkable. No mass. No consolidation. Pleural space: There are mild emphysematous changes scratched that the lungs are well-inflated and clear. No infiltrate or consolidation is seen. No pneumothorax or pleural effusion. Heart: Unremarkable. No cardiomegaly. No significant pericardial effusion. No significant coronary artery calcifications. Bones/joints: Increased kyphosis of the thoracic spine with mild to moderate multilevel degenerative changes. No acute fracture or spinal stenosis is seen. No bone lesion. No dislocation. Soft tissues: Unremarkable. Vasculature: The thoracic aorta is nondilated. There is no aneurysm or dissection. The pulmonary arterial tree is well opacified with contrast. No pulmonary embolism is identified. Lymph nodes: Unremarkable. No enlarged lymph nodes. Tubes, lines and devices: Endotracheal tube in good position. There is an NG tube extending into the lower esophagus within a hiatal hernia, short of the stomach. IMPRESSION: 1. Endotracheal tube in good position. There is an NG tube extending into the lower esophagus within a hiatal hernia, short of the stomach. 2. The thoracic aorta is nondilated. There is no aneurysm or dissection. 3. The pulmonary arterial tree is well opacified with contrast. No pulmonary embolism is identified. 4. There are mild emphysematous changes scratched that the lungs are well-inflated and clear. No infiltrate or consolidation is seen. No pneumothorax or pleural effusion. Electronically signed by: Rah Valdes MD 02/04/23 02:31 AM Duplex Scan Upper Extremity Artery 02/04/23 02:25 CR Exam(s): US ARTERIAL LEFT UPPER EXTREMITY EXAM: US Duplex Left Upper Extremity Arteries CLINICAL HISTORY: Reason for exam: eval for occlusion of radial artery/perfusion. TECHNIQUE: Real-time duplex ultrasound scan of the left upper extremity arteries integrating B-mode two-dimensional vascular structure, Doppler spectral analysis and color flow Doppler imaging. COMPARISON: No relevant prior studies available. FINDINGS: Left brachial artery: Left distal brachial artery is patent with multiphasic waveforms. Left radial artery: There is acute thrombosis of the left radial artery at its origin and throughout the course in the forearm. Soft tissues: Unremarkable. 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 Communications: Call Doctor Acute arterial occlusion/ critical stenosis Electronically signed by: Tobias Wood M.D. 02/04/23 03:57 AM Chest X-Ray 02/04/23 04:41 XR chest 1V portable HISTORY: 72 years-old Female eval ETT placement, OGT placement lung cortés acute respiratory failure COMPARISON: 07/02/2015 TECHNIQUE: AP view of the chest FINDINGS: Endotracheal tube overlies the midline, 1.9 cm superior to the breana. Enteric tube courses into the stomach with distal tip outside the [id number] and side port projected over the proximal gastric body. No pneumothorax, pleural effusion or airspace consolidation. Hiatal hernia. IV catheter of the left upper extremity with soft tissue swelling and deep tissue air. Bones appear grossly intact. IMPRESSION: 1. Endotracheal and enteric tube positioning as above. 2. The lungs appear clear. 3. Soft tissue swelling with subcutaneous emphysema of the left upper arm. Correlate with clinical exam findings. ACT 112: Negative or not required by law. The above report was generated using voice recognition software. It may contain grammatical, syntax or spelling errors. Electronically signed by: Alexis Inman M.D. 02/04/2023 7:44 AM ECG Additional Comments: ECG. Marked sinus bradycardia at a rate of 38. Code Status & VTE Plan VTE Prophylaxis Plan VTE Prophylaxis will be ordered: Yes
--- NOTE | 2023-02-04 07:45 | XRay Report ---
XR chest 1V portable HISTORY: 72 years-old Female eval ETT placement, OGT placement lung cortés acute respiratory failure COMPARISON: 07/02/2015 TECHNIQUE: AP view of the chest FINDINGS: Endotracheal tube overlies the midline, 1.9 cm superior to the breana. Enteric tube courses into the stomach with distal tip outside the [id number] and side port projected over the proximal gastric b jose francisco. No pneumothorax, pleural effusion or airspace consolidation. Hiatal hernia. IV catheter of the l eft upper extremity with soft tissue swelling and deep tissue air. Bones appear grossly intact. IMPRESSION: 1. Endotracheal and enteric tube positioning as above. 2. The lungs appear clear. 3. Soft tissue swelling with subcutaneous emphysema of the left upper arm. Correlate with clinical ex am findings. ACT 112: Negative or not required by law. The above report was generated using voice recognition software. It may contain grammatical, syntax o r spelling errors. Electronically signed by: Alexis Inman M.D. 02/04/2023 7:44 AM
--- NOTE | 2023-02-04 08:03 | Procedure Note ---
Procedure Note Date of Service February 04, 2023 Note INTERNAL JUGULAR CENTRAL LINE PROCEDURE NOTE: Procedure: Internal Jugular Central Line Placement Indication: Central Drug Administration, Poor Venous Access, Multiple Lab Draws Necessary, etc. Anesthesia: Propofol infusing/8 mm lidocaine 1% Consent was signed and placed on the chart prior to procedure. Indication, risks, and benefits were explained at length. A time-out was completed verifying correct patient, procedure, site, positioning, and implants(s) or special equipment if applicable. Patients right neck was cleansed and draped in the typical sterile fashion using Chloraprep. The Internal Jugular Vein and Carotid Artery were identified using ultrasound. The superficial tissue was anesthetized using 8 mL of 1% lidocaine without epinephrine under direct visualization with the ultrasound. After adequate anesthetization was achieved, the Internal Jugular vein was cannulated under direct ultrasound guidance using an introducer needle on a syringe. Good venous blood return was maintained prior to removal of syringe from introducer needle. Using Seldinger Technique, a guide wire was advanced through the introducer needle without resistance. The introducer needle was removed and ultrasound images were obtained of the guide wire within the Internal Jugular Vein and saved to the patients medical record. A small incision was made in penetrating fashion at the guide wire insertion site utilizing an 11 blade scalpel. The dilator was advanced to the vessel without resistance. The dilator was exchanged for the triple lumen catheter which was advanced into the vessel without resistance. The guide wire was removed intact from the catheter without issue. Claves were placed on each catheter tip with confirmation of good blood flow from each lumen. Each port was easily flushed with sterile saline. The catheter was placed at 16 [address] in place. BioPatch was applied to the catheter and a sterile Tegaderm dressing was applied over the catheter with careful attention to sterility. Patient tolerated procedure well. No immediate complications were met. Post procedure x-ray was ordered. Coding CPT Codes Tubes, Drains, and Vasc Access - Tubes, Drains, and Vasc Access: [id number] Place catheter in vein superior or inferior vena cava ([id number]) Tubes, Drains, and Vasc Access - Tubes, Drains, and Vasc Access: [id number] Ultrasound Guidance For Vascular ([id number]) [facility] [place] (Charges) Tubes, Drains, and Vasc Access Procedure 1: Tubes, Drains, and Vasc Access: [id number] Place catheter in vein superior or inferior vena cava Procedure 2: Tubes, Drains, and Vasc Access: [id number] Ultrasound Guidance For Vascular
[2023-02-04 08:17] LABS: Echinocytes 3+; Toxic Vacuolation 1+
[2023-02-04 08:23] LABS: Echinocytes 3+
--- NOTE | 2023-02-04 08:31 | XRay Report ---
XR chest 1V portable HISTORY: follow up right IJ central venous line COMPARISON: 02/04/2023. FINDINGS: The endotracheal tube terminates 2.7 cm from the breana. Nasogastric tube terminates below the diaphragm. The tip is not included on this study. A right jugular central venous catheter termina eusebia in the right atrium. No pneumothorax. No pleural effusions. The heart is normal in size. No focal lung consolidations to suggest a pneumonia. No evidence for pulmonary edema. There is a moderate hia tus hernia again noted. No acute fractures. Soft tissue swelling and mild subcutaneous emphysema with in the left upper arm persist. IMPRESSION: 1. The right jugular central venous catheter terminates in the right atrium. No pneumothorax. 2. Endotracheal tube and nasogastric tube appear in good position. ACT 112: Negative or not required by law. Electronically signed by: Christiano Adler M.D. 02/04/2023 8:29 AM
[2023-02-04 09:45] LABS: Albumin Globulin Ratio 0.9 (0.9-2); Albumin Level 2.2 gm/dl (3.4-5.0); BUN Creatinine Ratio 28.3 (10-20); Bilirubin,Total 0.8 mg/dl (0.2-1.0); Calcium 7.1 mg/dl (8.6-10.3); Creatinine Clr Calc Pharmacy 14.6 ml/min; Est GFR (African American) 25.6 ml/min; Est GFR (Non-African American) 22.1 ml/min; Globulin 2.4 gm/dl (2.5-4.0); Potassium 4.9 mmol/L (3.5-5.1); Total Protein 4.6 gm/dl (6.0-8.3)
[2023-02-04] MEDS: ICU Protocol for HYPERglycemia SCH ×2 (10:58→13:16)
[2023-02-04] MEDS ORDERED: PANTOprazole 40 MG in SYRINGE 0 ML IV SCH (11:00)
--- NOTE | 2023-02-04 11:04 | Gastrointestinal Consultation ---
Date of Consultation February 04, 2023 Assessment & Plan (1) Pancreatitis: (2) Shock: (3) Unresponsive: (4) Hypothermia: (5) Metabolic acidosis: Plan This is a 72 y/o female w/ h/o chronic pain on Tramadol, hyperparathyroid disease, and others, found down at home and taken to the hospital via EMS. She is critically ill, intubated, in the ICU w/ concern for shock, hypothermia, hypotension on pressors, thrombosis to left radial artery on heparin gtt, oliguric ARF with hematuria, mild rhabdomyolysis, nephrolithiasis of right kidney with severe hydro, hematuria, possibly anoxic brain injury, ? septic shock. We are consulted for concern for pancreatitis with lipase >9000 and edematous pancreas on imaging, as well as elevated LFTs w/o corrina dil or elevated bilirubin. ETOH neg and no obvious biliary stone disease at this time. Etiology more likely to be from poor perfusion/shock in this setting. - Would recommend supportive care for her pancreas and liver at this point including volume resuscitation as you are doing. - She is already on heparin gtt; could consider hep duplex to r/o PVT but would not necessarily change mgmt - No plan for GI procedures Please call with any acute changes, questions or concerns. Please see addendum below with additional recommendation from my supervising physician. Supervising Physician Co-Signing Physician Notes I performed a history and physical examination of the patient today, including specifically on physical exam - soft abdomen. I have discussed the patient's management with the advanced practitioner. Please refer to the nurse dillonti lenard's note for the documented findings and plan of care. Multiorgan failure. Unclear if this is pancreatitis or diffuse anasarca. Supportive care for now. Prognosis guarded. History of Present Illness Reason for Consultation: pancreatitis Requesting Physician: Dr. Schulz Attending Physician: Jodee Carrasco MD History of Present Illness This is a 72 y/o female w/ PMHx chronic pain on Tramadol, and Hyperparathyroid disease, and others, found down at home and taken to the hospital via EMS. She was intubated in the field and remains so in the ICU; therefore unable to obtain hx from pt; hx obtained from chart review and speaking with ICU staff/hospitalist. Reportedly family had no heard from her in over a week and her daughter went to go check on her; she was found facedown. In the ER she presented with hypothermia with admitting temp of 27.7 C, severe acidosis, mottled extremities. Currently has multiple co-morbidities including shock (? multifactorial), thrombosis to left radial artery on heparin gtt, hypotension requiring pressors, oliguric ARF with hematuria, mild rhabdomyolysis, UTI suspected, and nephrolithiasis of right kidney with severe hydro, hematuria, possibly anoxic brain injury, ? septic shock. She also has an open head wound on her left ortibal area and edema to her abdomen. She mas multiple lab derangement including hypocalcemia, hyperphosphatemia, rising lactate (10), coagulopathy (INR 1.8), PLT 127, HGB 10, WBC 21k, elevated procal. Urine tox screen (+) for benzos; salicylate and ETOH labs neg. BCx, Ucx pen ding. We are consulted for pancreatitis as her lipase was > [address] suggestive of edematous pancreas. This AM LFTs acutely elevated w/ AST 1500, ALT 613, ALP 130, normal Tbili. Imaging w/o corrina dil or gallstones. On imaging, liver w/ p eripheral wedge-shaped areas of decreased enhancement of the in the periphery of the liver. Possible perfusion phenomenon. No discrete mass lesion is a visible. No known h/o pancreatitis. No prior abd imaging available to review. Allergies Allergy/AdvReac Type Severity Reaction Status Date / Time No Known Allergies Allergy Unknown Verified 02/03/23 22:15 Home Medications Medication Instructions Recorded Confirmed Type dextroamphetamine-amphetamine 20 20 mg PO TID 03/19/19 02/03/23 History mg tablet (Adderall) ferrous sulfate 325 mg (65 mg 325 mg PO DAILY 03/19/19 02/03/23 History iron) tablet tramadol 50 mg tablet 100 mg PO Q6H PRN Pain 03/19/19 02/03/23 History valacyclovir 1 gram tablet 1,000 mg PO BID PRN as needed 09/24/20 02/03/23 History (Valtrex) cinacalcet 60 mg tablet 60 mg PO BID #60 tabs 12/20/22 02/03/23 Rx Patient History Medical History (Updated 02/04/23 @ 14:52 by Mariama Ruiz MD) Hyperkalemia Vitamin D deficiency Kyphosis Attention 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 hyperactivity Fatigue Hypercalcemia Hyperparathyroidism Nephrolithiasis Kidney stone on right side Hydronephrosis with urinary obstruction due to renal calculus Dental caries Anemia (12/22/12) H/O endoscopy Fecal impaction of colon (06/05/13) Surgical History H/O: section H/O colonoscopy Social History Smoking Status: Unknown if ever smoked Preferred Language: Thai Communication Ability: Unable Welfare Visitor Required: No marital status: Current Living Situation: Alone Current Living Situation Comment: Lives at home alone current occupational status: retired Assistive Devices: None Review of Systems Review of Systems: Unobtainable due to endotracheal tube Physical Exam Constitutional: thin, vitals as above, ill appearing Eyes: left orbital wound w/ left orbit swelling ENMT: dry mucous membraes Respiratory: + intubated Cardiovascular: RRR Gastrointestinal (Abdomen): abd soft, edema noted throughout the abd wall; nondistended, BS x 4 quadrants Neurologic: Unresponsive, intubated Results & Data Vital Signs (Past 12 Hours) Vital Signs Temp Pulse Pulse Resp BP BP Pulse Ox 02/04/23 10:28 36.8 C 85 40 H 86/48 L 96 02/04/23 09:14 02/04/23 07:38 75 42 H 99 02/04/23 06:00 32.7 C L 67 25 H 100 02/04/23 05:30 32.6 C L 64 23 99 02/04/23 05:14 02/04/23 05:00 32.2 C L 60 32 H 97 02/04/23 04:59 59 L 34 H 98 02/04/23 04:50 32.1 C L 59 L 33 H 96 02/04/23 04:40 31.9 C L 58 L 29 H 98 02/04/23 04:30 31.8 C L 57 L 28 H 98 02/04/23 04:20 31.7 C L 56 L 27 H 99 02/04/23 04:10 31.6 C L 56 L 27 H 99 02/04/23 04:05 30.1 C L 26 H 98 02/04/23 04:05 52 L 02/04/23 04:05 02/04/23 04:00 31.5 C L 55 L 30 H 100 02/04/23 03:50 31.5 C L 54 L 28 H 100 02/04/23 03:40 31.4 C L 53 L 26 H 100 02/04/23 03:30 31.3 C L 54 L 27 H 100 02/04/23 03:30 30.6 C L 55 L 26 H 91/51 L 100 02/04/23 03:20 31.2 C L 54 L 27 H 100 02/04/23 03:10 31.1 C L 54 L 29 H 100 02/04/23 03:00 30.9 C L 53 L 27 H 100 02/04/23 02:50 30.5 C L 53 L 26 H 100 02/04/23 02:40 29.1 C L 53 L 28 H 100 02/04/23 02:30 30.8 C L 70 26 H 100 02/04/23 02:30 02/04/23 02:29 30.8 C L 53 L 31 H 100 02/04/23 02:29 128/76 02/04/23 02:20 30.7 C L 55 L 27 H 100 02/04/23 02:10 30.6 C L 54 L 31 H 100 02/04/23 02:00 30.4 C L 115 H 21 99 02/04/23 01:54 30.3 C L 97 H 27 H 100 02/04/23 01:53 69 02/04/23 01:45 62 29 H 99 02/04/23 01:20 91/69 L 02/04/23 01:20 52 L 34 H 99 02/04/23 01:20 29.8 C L 02/04/23 01:10 88/66 L 02/04/23 01:10 52 L 31 H 94 02/04/23 01:00 85/62 L 02/04/23 01:00 50 L 32 H 97 02/04/23 00:50 84/59 L 02/04/23 00:50 49 L 34 H 97 02/04/23 00:40 49 L 34 H 98/64 L 98 02/04/23 00:30 49 L 34 H 124/76 98 02/04/23 00:20 45 L 33 H 114/71 100 02/04/23 00:10 44 L 33 H 108/70 99 02/04/23 00:00 43 L 34 H 110/71 99 02/03/23 23:50 40 L 33 H 106/76 99 02/03/23 23:45 43 L 32 H 108/75 98 02/03/23 23:40 42 L 34 H 100/73 98 02/03/23 23:35 41 L 35 H 93/66 L 96 02/03/23 23:30 40 L 34 H 88/71 L 96 02/03/23 23:25 40 L 34 H 98/69 L 97 02/03/23 23:20 40 L 35 H 103/70 99 02/03/23 23:15 39 L 34 H 99 02/03/23 23:15 106/72 02/03/23 23:10 109/76 02/03/23 23:10 40 L 33 H 100 02/03/23 23:05 42 L 34 H 98 02/03/23 23:05 100/72 02/03/23 23:00 27.7 C L 02/03/23 23:00 39 L 32 H 97 02/03/23 23:00 98/63 L 02/03/23 22:58 39 L 33 H 97 02/03/23 22:58 87/66 L 02/03/23 22:54 39 L 38 H 100 02/03/23 22:40 39 L 37 H 100 O2 Del Method O2 Flow Rate FiO2 02/04/23 10:28 02/04/23 09:14 30 02/04/23 07:38 30 02/04/23 06:00 02/04/23 05:30 02/04/23 05:14 30 02/04/23 05:00 02/04/23 04:59 30 02/04/23 04:50 02/04/23 04:40 02/04/23 04:30 02/04/23 04:20 02/04/23 04:10 02/04/23 04:05 Mechanical Vent 50 50 02/04/23 04:05 02/04/23 04:05 50 02/04/23 04:00 02/04/23 03:50 02/04/23 03:40 02/04/23 03:30 02/04/23 03:30 Mechanical Vent 02/04/23 03:20 02/04/23 03:10 02/04/23 03:00 02/04/23 02:50 02/04/23 02:40 02/04/23 02:30 02/04/23 02:30 30 02/04/23 02:29 02/04/23 02:29 02/04/23 02:20 02/04/23 02:10 02/04/23 02:00 02/04/23 01:54 02/04/23 01:53 02/04/23 01:45 40 02/04/23 01:20 02/04/23 01:20 02/04/23 01:20 02/04/23 01:10 02/04/23 01:10 02/04/23 01:00 02/04/23 01:00 02/04/23 00:50 02/04/23 00:50 02/04/23 00:40 02/04/23 00:30 02/04/23 00:20 02/04/23 00:10 02/04/23 00:00 02/03/23 23:50 02/03/23 23:45 02/03/23 23:40 02/03/23 23:35 02/03/23 23:30 02/03/23 23:25 02/03/23 23:20 02/03/23 23:15 02/03/23 23:15 02/03/23 23:10 02/03/23 23:10 02/03/23 23:05 02/03/23 23:05 02/03/23 23:00 02/03/23 23:00 02/03/23 23:00 02/03/23 22:58 02/03/23 22:58 02/03/23 22:54 02/03/23 22:40 Laboratory Results 02/04/23 02/04/23 02/04/23 Range/Units Unknown 09:16 08:56 WBC (4.8-10.8) K/ul RBC (4.20-5.40) M/uL Hgb (12.0-16.0) g/dl POC Hgb (12.0-16.0) g/dl Hct (37.0-47.0) % POC Hct (37-47) % MCV (80.0-100.0) fL MCH (25.0-34.0) pg MCHC (32.0-36.0) g/dL RDW Std Deviation (36.4-46.3) fL RDW Coeff of Kika (11.5-14.5) % Plt Count (130-400) K/uL MPV (9.4-12.4) fL Immature Gran % (Auto) % Neut % (Auto) % Lymph % (Auto) % Emmet % (Auto) % Eos % (Auto) % Baso % (Auto) % Neut # (Auto) (1.40-6.50) K/uL Lymph # (Auto) (1.20-3.40) K/uL Emmet # (Auto) (0.11-0.59) K/uL Eos # (Auto) (0.00-0.50) K/uL Baso # (Auto) (0.00-0.20) K/uL Immature Gran # (Auto) (0.01-0.20) K/uL Toxic Vacuolation Echinocytes PT (9.0-12.0) Seconds INR (0.9-1.1) APTT (21-31) Seconds PTT Ratio Fibrinogen (184-400) mg/dl Heparin Anti-Xa, Unfract (0.3-0.7) IU/ml Sample Site POC pH (7.35-7.45) POC pCO2 (35-46) mmHg POC pO2 (80-95) mmHg POC HCO3 (19-24) blanca/L POC Base Excess (-9-1.8) blanca/L ABG pH (Temp Correct) (7.35-7.45) ABG pCO2 (Temp Corrct (35-46) mmHg POC ABG pO2 at Pt Temp POC ABG O2 Sat (90-95) % Pawan Test VBG pH (7.36-7.41) VBG pCO2 (38-50) mmHg VBG pO2 mmHg VBG HCO3 mmol/L VBG O2 Saturation % VBG Base Excess mEq/L O2 Delivery Device POC O2 Rate POC FiO2 % Tidal Volume PEEP POC Sodium (135-144) mmol/L Sodium 136 (136-145) mmol/L POC Potassium (3.3-5.0) mmol/L Potassium 4.9 D (3.5-5.1) mmol/L POC Chloride (101-112) mmol/L Chloride 97 L (98-107) mmol/L Carbon Dioxide 16 L (21-32) mmol/L POC Total CO2 (24-31) mmol/L Anion Gap 23 H (3-11) POC Anion Gap (16-25) mmol/L POC BUN (7-18) mg/dl BUN 62 H (6-23) mg/dl Creatinine 2.19 H (0.6-1.2) mg/dl POC Creatinine (0.6-1.3) mg/dl Est Cr Clr Drug Dosing 14.6 Est GFR ( Amer) 25.6 ml/min Est GFR (Non-Af Amer) 22.1 ml/min BUN/Creatinine Ratio 28.3 H (10-20) Glucose 239 H (70-99(Fasting)) mg/dl POC Glucose (other) (70-99) mg/dl Lactate 10.6 H* (0.4-2.0) mmol/L Calcium 7.1 L (8.6-10.3) mg/dl POC Ioniz Calcium Damian (1.12-1.32) mmol/l Phosphorus (2.5-4.9) mg/dl Magnesium (1.7-2.4) mg/dl Total Bilirubin 0.8 (0.2-1.0) mg/dl Direct Bilirubin (0-0.2) mg/dl AST 1503 H (13-39) U/L ALT 613 H (7-52) U/L Alkaline Phosphatase 130 H (34-104) U/L Total Creatine Kinase (26-192) U/L Total Protein 4.6 L D (6.0-8.3) gm/dl Albumin 2.2 L (3.4-5.0) gm/dl Globulin 2.4 L (2.5-4.0) gm/dl Albumin/Globulin Ratio 0.9 (0.9-2) Lipase (11-82) U/L Procalcitonin (0-0.5) ng/ml Random Cortisol mcg/dl Urine Color Urine Appearance (Clear) Urine pH (4.5-7.5) Ur Specific [place] (1.000-1.030) Urine Protein (Negative) Urine Glucose (UA) (Negative) Urine Ketones (Negative) Urine Blood (Negative) Urine Nitrite (Negative) Urine Bilirubin (Negative) Urine Urobilinogen (Negative) Ur Leukocyte Esterase (Negative) Urine RBC (0-4) /hpf Urine WBC (0-5) /hpf Ur Epithelial Cells (0-5) /lpf Urine Bacteria (Negative) Nasal Screen MRSA (PCR) Positive A (Negative) Salicylates (3.0-30) mg/dl Urine Opiates Screen (Neg) Ur Methadone, Qual (Neg) Acetaminophen (10-30) ug/ml Urine Barbiturates (Neg) Ur Phencyclidine (PCP) (Neg) U Amphetamin/Meth Scrn (Neg) MDMA (Ecstasy) Screen (Neg) U OH-Alprazolam Confrm U Benzodiazepines Scrn (Neg) 7-Amino Clonazepam Ur Nordiazepam Confirm U OH-ethylflurazepam U Lorazepam Cnf GC/MS U Oxazepam Confm GC/MS Ur Temazepam Confirm U OH-Triazolam Confirm U OH-Midazolam Confirm Ur Cocaine Metabolite (Neg) U Marijuana (THC) Screen (Neg) Drug Screen Comment Ethyl Alcohol mg/dL (<10.0) mg/dl 02/04/23 02/04/23 02/04/23 Range/Units 06:33 05:20 04:32 WBC (4.8-10.8) K/ul RBC (4.20-5.40) M/uL Hgb (12.0-16.0) g/dl POC Hgb 9.9 L (12.0-16.0) g/dl Hct (37.0-47.0) % POC Hct 29 L (37-47) % MCV (80.0-100.0) fL MCH (25.0-34.0) pg MCHC (32.0-36.0) g/dL RDW Std Deviation (36.4-46.3) fL RDW Coeff of Kika (11.5-14.5) % Plt Count (130-400) K/uL MPV (9.4-12.4) fL Immature Gran % (Auto) % Neut % (Auto) % Lymph % (Auto) % Emmet % (Auto) % Eos % (Auto) % Baso % (Auto) % Neut # (Auto) (1.40-6.50) K/uL Lymph # (Auto) (1.20-3.40) K/uL Emmet # (Auto) (0.11-0.59) K/uL Eos # (Auto) (0.00-0.50) K/uL Baso # (Auto) (0.00-0.20) K/uL Immature Gran # (Auto) (0.01-0.20) K/uL Toxic Vacuolation Echinocytes PT (9.0-12.0) Seconds INR (0.9-1.1) APTT (21-31) Seconds PTT Ratio Fibrinogen (184-400) mg/dl Heparin Anti-Xa, Unfract (0.3-0.7) IU/ml Sample Site Art Line POC pH 7.39 (7.35-7.45) POC pCO2 29 L (35-46) mmHg POC pO2 160 H (80-95) mmHg POC HCO3 18 L (19-24) blanca/L POC Base Excess -7.0 (-9-1.8) blanca/L ABG pH (Temp Correct) 7.465 H (7.35-7.45) ABG pCO2 (Temp Corrct 23 L (35-46) mmHg POC ABG pO2 at Pt Temp 133 POC ABG O2 Sat 99.0 H (90-95) % Pawan Test NA VBG pH (7.36-7.41) VBG pCO2 (38-50) mmHg VBG pO2 mmHg VBG HCO3 mmol/L VBG O2 Saturation % VBG Base Excess mEq/L O2 Delivery Device Ventilator POC O2 Rate 22 POC FiO2 30 % Tidal Volume 350 PEEP 5 POC Sodium 136 (135-144) mmol/L Sodium (136-145) mmol/L POC Potassium 3.6 (3.3-5.0) mmol/L Potassium (3.5-5.1) mmol/L POC Chloride (101-112) mmol/L Chloride (98-107) mmol/L Carbon Dioxide (21-32) mmol/L POC Total CO2 18 L (24-31) mmol/L Anion Gap (3-11) POC Anion Gap (16-25) mmol/L POC BUN (7-18) mg/dl BUN (6-23) mg/dl Creatinine (0.6-1.2) mg/dl POC Creatinine (0.6-1.3) mg/dl Est Cr Clr Drug Dosing Est GFR ( Amer) ml/min Est GFR (Non-Af Amer) ml/min BUN/Creatinine Ratio (10-20) Glucose (70-99(Fasting)) mg/dl POC Glucose (other) (70-99) mg/dl Lactate 6.6 H* (0.4-2.0) mmol/L Calcium (8.6-10.3) mg/dl POC Ioniz Calcium Damian (1.12-1.32) mmol/l Phosphorus (2.5-4.9) mg/dl Magnesium (1.7-2.4) mg/dl Total Bilirubin (0.2-1.0) mg/dl Direct Bilirubin (0-0.2) mg/dl AST (13-39) U/L ALT (7-52) U/L Alkaline Phosphatase (34-104) U/L Total Creatine Kinase (26-192) U/L Total Protein (6.0-8.3) gm/dl Albumin (3.4-5.0) gm/dl Globulin (2.5-4.0) gm/dl Albumin/Globulin Ratio (0.9-2) Lipase (11-82) U/L Procalcitonin 0.96 H (0-0.5) ng/ml Random Cortisol > 60.00 mcg/dl Urine Color Urine Appearance (Clear) Urine pH (4.5-7.5) Ur Specific [place] (1.000-1.030) Urine Protein (Negative) Urine Glucose (UA) (Negative) Urine Ketones (Negative) Urine Blood (Negative) Urine Nitrite (Negative) Urine Bilirubin (Negative) Urine Urobilinogen (Negative) Ur Leukocyte Esterase (Negative) Urine RBC (0-4) /hpf Urine WBC (0-5) /hpf Ur Epithelial Cells (0-5) /lpf Urine Bacteria (Negative) Nasal Screen MRSA (PCR) (Negative) Salicylates (3.0-30) mg/dl Urine Opiates Screen (Neg) Ur Methadone, Qual (Neg) Acetaminophen (10-30) ug/ml Urine Barbiturates (Neg) Ur Phencyclidine (PCP) (Neg) U Amphetamin/Meth Scrn (Neg) MDMA (Ecstasy) Screen (Neg) U OH-Alprazolam Confrm U Benzodiazepines Scrn (Neg) 7-Amino Clonazepam Ur Nordiazepam Confirm U OH-ethylflurazepam U Lorazepam Cnf GC/MS U Oxazepam Confm GC/MS Ur Temazepam Confirm U OH-Triazolam Confirm U OH-Midazolam Confirm Ur Cocaine Metabolite (Neg) U Marijuana (THC) Screen (Neg) Drug Screen Comment Ethyl Alcohol mg/dL (<10.0) mg/dl 02/04/23 02/04/23 02/04/23 Range/Units 04:17 03:21 02:27 WBC 21.61 H (4.8-10.8) K/ul RBC 3.46 L (4.20-5.40) M/uL Hgb 10.1 L (12.0-16.0) g/dl POC Hgb 9.5 L (12.0-16.0) g/dl Hct 28.6 L (37.0-47.0) % POC Hct 28 L (37-47) % MCV 82.7 (80.0-100.0) fL MCH 29.2 (25.0-34.0) pg MCHC 35.3 (32.0-36.0) g/dL RDW Std Deviation 37.9 (36.4-46.3) fL RDW Coeff of Kika 12.7 (11.5-14.5) % Plt Count 127 L (130-400) K/uL MPV 8.8 L (9.4-12.4) fL Immature Gran % (Auto) 2.6 % Neut % (Auto) 94.3 % Lymph % (Auto) 1.8 % Emmet % (Auto) 1.0 % Eos % (Auto) 0.0 % Baso % (Auto) 0.3 % Neut # (Auto) 20.38 H (1.40-6.50) K/uL Lymph # (Auto) 0.38 L (1.20-3.40) K/uL Emmet # (Auto) 0.22 (0.11-0.59) K/uL Eos # (Auto) 0.00 (0.00-0.50) K/uL Baso # (Auto) 0.06 (0.00-0.20) K/uL Immature Gran # (Auto) 0.57 H (0.01-0.20) K/uL Toxic Vacuolation 1+ Echinocytes 3+ PT 19.3 H (9.0-12.0) Seconds INR 1.8 H (0.9-1.1) APTT 48 H (21-31) Seconds PTT Ratio 1.7 Fibrinogen 123 L (184-400) mg/dl Heparin Anti-Xa, Unfract < 0.10 L (0.3-0.7) IU/ml Sample Site Art Line POC pH 7.34 L (7.35-7.45) POC pCO2 29 L (35-46) mmHg POC pO2 228 H (80-95) mmHg POC HCO3 16 L (19-24) blanca/L POC Base Excess -10.0 L (-9-1.8) blanca/L ABG pH (Temp Correct) 7.430 (7.35-7.45) ABG pCO2 (Temp Corrct 22 L (35-46) mmHg POC ABG pO2 at Pt Temp 200 POC ABG O2 Sat 100.0 H (90-95) % Pawan Test NA VBG pH (7.36-7.41) VBG pCO2 (38-50) mmHg VBG pO2 mmHg VBG HCO3 mmol/L VBG O2 Saturation % VBG Base Excess mEq/L O2 Delivery Device Ventilator POC O2 Rate 22 POC FiO2 40 % Tidal Volume 350 PEEP 5 POC Sodium 138 (135-144) mmol/L Sodium 138 139 (136-145) mmol/L POC Potassium 3.3 (3.3-5.0) mmol/L Potassium 3.6 3.6 (3.5-5.1) mmol/L POC Chloride (101-112) mmol/L Chloride 102 104 (98-107) mmol/L Carbon Dioxide 18 L 17 L (21-32) mmol/L POC Total CO2 17 L (24-31) mmol/L Anion Gap 18 H 18 H (3-11) POC Anion Gap (16-25) mmol/L POC BUN (7-18) mg/dl BUN 60 H 59 H (6-23) mg/dl Creatinine 2.02 H 1.98 H (0.6-1.2) mg/dl POC Creatinine (0.6-1.3) mg/dl Est Cr Clr Drug Dosing 15.9 Not Reportable Est GFR ( Amer) 28.3 28.9 ml/min Est GFR (Non-Af Amer) 24.4 25.0 ml/min BUN/Creatinine Ratio 29.7 H 29.8 H (10-20) Glucose 180 H 147 H (70-99(Fasting)) mg/dl POC Glucose (other) (70-99) mg/dl Lactate 5.3 H* (0.4-2.0) mmol/L Calcium 7.2 L 7.2 L D (8.6-10.3) mg/dl POC Ioniz Calcium Damian (1.12-1.32) mmol/l Phosphorus 7.2 H (2.5-4.9) mg/dl Magnesium 2.0 (1.7-2.4) mg/dl Total Bilirubin (0.2-1.0) mg/dl Direct Bilirubin (0-0.2) mg/dl AST (13-39) U/L ALT (7-52) U/L Alkaline Phosphatase (34-104) U/L Total Creatine Kinase (26-192) U/L Total Protein (6.0-8.3) gm/dl Albumin (3.4-5.0) gm/dl Globulin (2.5-4.0) gm/dl Albumin/Globulin Ratio (0.9-2) Lipase (11-82) U/L Procalcitonin (0-0.5) ng/ml Random Cortisol mcg/dl Urine Color Urine Appearance (Clear) Urine pH (4.5-7.5) Ur Specific [place] (1.000-1.030) Urine Protein (Negative) Urine Glucose (UA) (Negative) Urine Ketones (Negative) Urine Blood (Negative) Urine Nitrite (Negative) Urine Bilirubin (Negative) Urine Urobilinogen (Negative) Ur Leukocyte Esterase (Negative) Urine RBC (0-4) /hpf Urine WBC (0-5) /hpf Ur Epithelial Cells (0-5) /lpf Urine Bacteria (Negative) Nasal Screen MRSA (PCR) (Negative) Salicylates (3.0-30) mg/dl Urine Opiates Screen (Neg) Ur Methadone, Qual (Neg) Acetaminophen (10-30) ug/ml Urine Barbiturates (Neg) Ur Phencyclidine (PCP) (Neg) U Amphetamin/Meth Scrn (Neg) MDMA (Ecstasy) Screen (Neg) U OH-Alprazolam Confrm U Benzodiazepines Scrn (Neg) 7-Amino Clonazepam Ur Nordiazepam Confirm U OH-ethylflurazepam U Lorazepam Cnf GC/MS U Oxazepam Confm GC/MS Ur Temazepam Confirm U OH-Triazolam Confirm U OH-Midazolam Confirm Ur Cocaine Metabolite (Neg) U Marijuana (THC) Screen (Neg) Drug Screen Comment Ethyl Alcohol mg/dL (<10.0) mg/dl 02/04/23 02/03/23 02/03/23 Range/Units 00:52 23:54 23:13 WBC (4.8-10.8) K/ul RBC (4.20-5.40) M/uL Hgb (12.0-16.0) g/dl POC Hgb (12.0-16.0) g/dl Hct (37.0-47.0) % POC Hct (37-47) % MCV (80.0-100.0) fL MCH (25.0-34.0) pg MCHC (32.0-36.0) g/dL RDW Std Deviation (36.4-46.3) fL RDW Coeff of Kika (11.5-14.5) % Plt Count (130-400) K/uL MPV (9.4-12.4) fL Immature Gran % (Auto) % Neut % (Auto) % Lymph % (Auto) % Emmet % (Auto) % Eos % (Auto) % Baso % (Auto) % Neut # (Auto) (1.40-6.50) K/uL Lymph # (Auto) (1.20-3.40) K/uL Emmet # (Auto) (0.11-0.59) K/uL Eos # (Auto) (0.00-0.50) K/uL Baso # (Auto) (0.00-0.20) K/uL Immature Gran # (Auto) (0.01-0.20) K/uL Toxic Vacuolation Echinocytes PT (9.0-12.0) Seconds INR (0.9-1.1) APTT (21-31) Seconds PTT Ratio Fibrinogen (184-400) mg/dl Heparin Anti-Xa, Unfract (0.3-0.7) IU/ml Sample Site POC pH (7.35-7.45) POC pCO2 (35-46) mmHg POC pO2 (80-95) mmHg POC HCO3 (19-24) blanca/L POC Base Excess (-9-1.8) blanca/L ABG pH (Temp Correct) (7.35-7.45) ABG pCO2 (Temp Corrct (35-46) mmHg POC ABG pO2 at Pt Temp POC ABG O2 Sat (90-95) % Pawan Test VBG pH (7.36-7.41) VBG pCO2 (38-50) mmHg VBG pO2 mmHg VBG HCO3 mmol/L VBG O2 Saturation % VBG Base Excess mEq/L O2 Delivery Device POC O2 Rate POC FiO2 % Tidal Volume PEEP POC Sodium (135-144) mmol/L Sodium (136-145) mmol/L POC Potassium (3.3-5.0) mmol/L Potassium (3.5-5.1) mmol/L POC Chloride (101-112) mmol/L Chloride (98-107) mmol/L Carbon Dioxide (21-32) mmol/L POC Total CO2 (24-31) mmol/L Anion Gap (3-11) POC Anion Gap (16-25) mmol/L POC BUN (7-18) mg/dl BUN (6-23) mg/dl Creatinine (0.6-1.2) mg/dl POC Creatinine (0.6-1.3) mg/dl Est Cr Clr Drug Dosing Est GFR ( Amer) ml/min Est GFR (Non-Af Amer) ml/min BUN/Creatinine Ratio (10-20) Glucose (70-99(Fasting)) mg/dl POC Glucose (other) (70-99) mg/dl Lactate 8.1 H* (0.4-2.0) mmol/L Calcium (8.6-10.3) mg/dl POC Ioniz Calcium Damian (1.12-1.32) mmol/l Phosphorus (2.5-4.9) mg/dl Magnesium (1.7-2.4) mg/dl Total Bilirubin (0.2-1.0) mg/dl Direct Bilirubin (0-0.2) mg/dl AST (13-39) U/L ALT (7-52) U/L Alkaline Phosphatase (34-104) U/L Total Creatine Kinase (26-192) U/L Total Protein (6.0-8.3) gm/dl Albumin (3.4-5.0) gm/dl Globulin (2.5-4.0) gm/dl Albumin/Globulin Ratio (0.9-2) Lipase (11-82) U/L Procalcitonin (0-0.5) ng/ml Random Cortisol mcg/dl Urine Color Red Urine Appearance Turbid A (Clear) Urine pH (4.5-7.5) Ur Specific [place] 1.019 (1.000-1.030) Urine Protein (Negative) Urine Glucose (UA) (Negative) Urine Ketones (Negative) Urine Blood (Negative) Urine Nitrite (Negative) Urine Bilirubin (Negative) Urine Urobilinogen (Negative) Ur Leukocyte Esterase (Negative) Urine RBC >30 H (0-4) /hpf Urine WBC >30 H (0-5) /hpf Ur Epithelial Cells 0-5 (0-5) /lpf Urine Bacteria 4+ H (Negative) Nasal Screen MRSA (PCR) (Negative) Salicylates (3.0-30) mg/dl Urine Opiates Screen Neg (Neg) Ur Methadone, Qual Neg (Neg) Acetaminophen (10-30) ug/ml Urine Barbiturates Neg (Neg) Ur Phencyclidine (PCP) Neg (Neg) U Amphetamin/Meth Scrn Neg (Neg) MDMA (Ecstasy) Screen Neg (Neg) U OH-Alprazolam Confrm Pending U Benzodiazepines Scrn Pos H (Neg) 7-Amino Clonazepam Pending Ur Nordiazepam Confirm Pending U OH-ethylflurazepam Pending U Lorazepam Cnf GC/MS Pending U Oxazepam Confm GC/MS Pending Ur Temazepam Confirm Pending U OH-Triazolam Confirm Pending U OH-Midazolam Confirm Pending Ur Cocaine Metabolite Neg (Neg) U Marijuana (THC) Screen Neg (Neg) Drug Screen Comment Pending Ethyl Alcohol mg/dL < 10.0 (<10.0) mg/dl 02/03/23 02/03/23 Range/Units 22:25 22:24 WBC 25.22 H (4.8-10.8) K/ul RBC 4.50 (4.20-5.40) M/uL Hgb 12.9 (12.0-16.0) g/dl POC Hgb 13.6 (12.0-16.0) g/dl Hct 39.0 (37.0-47.0) % POC Hct 40 (37-47) % MCV 86.7 (80.0-100.0) fL MCH 28.7 (25.0-34.0) pg MCHC 33.1 (32.0-36.0) g/dL RDW Std Deviation 41.4 (36.4-46.3) fL RDW Coeff of Kika 13.1 (11.5-14.5) % Plt Count 156 (130-400) K/uL MPV 8.6 L (9.4-12.4) fL Immature Gran % (Auto) 4.0 % Neut % (Auto) 89.2 % Lymph % (Auto) 4.0 % Emmet % (Auto) 2.4 % Eos % (Auto) 0.0 % Baso % (Auto) 0.4 % Neut # (Auto) 22.50 H (1.40-6.50) K/uL Lymph # (Auto) 1.02 L (1.20-3.40) K/uL Emmet # (Auto) 0.60 H (0.11-0.59) K/uL Eos # (Auto) 0.00 (0.00-0.50) K/uL Baso # (Auto) 0.09 (0.00-0.20) K/uL Immature Gran # (Auto) 1.01 H (0.01-0.20) K/uL Toxic Vacuolation Echinocytes 3+ PT (9.0-12.0) Seconds INR (0.9-1.1) APTT (21-31) Seconds PTT Ratio Fibrinogen (184-400) mg/dl Heparin Anti-Xa, Unfract (0.3-0.7) IU/ml Sample Site POC pH (7.35-7.45) POC pCO2 (35-46) mmHg POC pO2 (80-95) mmHg POC HCO3 (19-24) blanca/L POC Base Excess (-9-1.8) blanca/L ABG pH (Temp Correct) (7.35-7.45) ABG pCO2 (Temp Corrct (35-46) mmHg POC ABG pO2 at Pt Temp POC ABG O2 Sat (90-95) % Pawan Test VBG pH 7.05 L (7.36-7.41) VBG pCO2 62 H (38-50) mmHg VBG pO2 51 mmHg VBG HCO3 17 mmol/L VBG O2 Saturation 70.1 % VBG Base Excess -13.8 mEq/L O2 Delivery Device POC O2 Rate POC FiO2 % Tidal Volume PEEP POC Sodium 134 L (135-144) mmol/L Sodium 137 (136-145) mmol/L POC Potassium 4.3 (3.3-5.0) mmol/L Potassium 4.5 (3.5-5.1) mmol/L POC Chloride 103 (101-112) mmol/L Chloride 99 (98-107) mmol/L Carbon Dioxide 18 L (21-32) mmol/L POC Total CO2 21 L (24-31) mmol/L Anion Gap 20 H (3-11) POC Anion Gap 15.0 L (16-25) mmol/L POC BUN 53 H (7-18) mg/dl BUN 57 H (6-23) mg/dl Creatinine 2.18 H (0.6-1.2) mg/dl POC Creatinine 2.4 H (0.6-1.3) mg/dl Est Cr Clr Drug Dosing Not Reportable Est GFR ( Amer) 25.8 ml/min Est GFR (Non-Af Amer) 22.2 ml/min BUN/Creatinine Ratio 26.1 H (10-20) Glucose 149 H (70-99(Fasting)) mg/dl POC Glucose (other) 146 H (70-99) mg/dl Lactate 9.5 H* (0.4-2.0) mmol/L Calcium 11.0 H (8.6-10.3) mg/dl POC Ioniz Calcium Damian 1.38 H (1.12-1.32) mmol/l Phosphorus (2.5-4.9) mg/dl Magnesium 2.7 H (1.7-2.4) mg/dl Total Bilirubin 0.7 (0.2-1.0) mg/dl Direct Bilirubin 0.2 (0-0.2) mg/dl AST 128 H (13-39) U/L ALT 66 H (7-52) U/L Alkaline Phosphatase 155 H (34-104) U/L Total Creatine Kinase 710 H (26-192) U/L Total Protein 5.8 L (6.0-8.3) gm/dl Albumin 2.7 L (3.4-5.0) gm/dl Globulin (2.5-4.0) gm/dl Albumin/Globulin Ratio (0.9-2) Lipase 9680 H (11-82) U/L Procalcitonin (0-0.5) ng/ml Random Cortisol mcg/dl Urine Color Urine Appearance (Clear) Urine pH (4.5-7.5) Ur Specific [place] (1.000-1.030) Urine Protein (Negative) Urine Glucose (UA) (Negative) Urine Ketones (Negative) Urine Blood (Negative) Urine Nitrite (Negative) Urine Bilirubin (Negative) Urine Urobilinogen (Negative) Ur Leukocyte Esterase (Negative) Urine RBC (0-4) /hpf Urine WBC (0-5) /hpf Ur Epithelial Cells (0-5) /lpf Urine Bacteria (Negative) Nasal Screen MRSA (PCR) (Negative) Salicylates < 3.0 L (3.0-30) mg/dl Urine Opiates Screen (Neg) Ur Methadone, Qual (Neg) Acetaminophen < 3 L (10-30) ug/ml Urine Barbiturates (Neg) Ur Phencyclidine (PCP) (Neg) U Amphetamin/Meth Scrn (Neg) MDMA (Ecstasy) Screen (Neg) U OH-Alprazolam Confrm U Benzodiazepines Scrn (Neg) 7-Amino Clonazepam Ur Nordiazepam Confirm U OH-ethylflurazepam U Lorazepam Cnf GC/MS U Oxazepam Confm GC/MS Ur Temazepam Confirm U OH-Triazolam Confirm U OH-Midazolam Confirm Ur Cocaine Metabolite (Neg) U Marijuana (THC) Screen (Neg) Drug Screen Comment Ethyl Alcohol mg/dL (<10.0) mg/dl Diagnostic Findings CTAP: INDINGS: Lung bases: Unremarkable. No mass. No consolidation. ABDOMEN: Liver: Peripheral wedge-shaped areas of decreased enhancement of the in the periphery of the liver. Possible perfusion phenomenon. No discrete mass lesion is a visible. Gallbladder and bile ducts: Unremarkable. No calcified stones. No ductal dilation. Pancreas: Edema throughout the pancreas which appears mildly fatty infiltrated. Questionable pancreatitis versus secondary edema from a separate process. No ductal dilation. Spleen: Unremarkable. No splenomegaly. Adrenals: Unremarkable. No mass. Kidneys and ureters: There is a 1.5 cm oval calculus in the mid right ureter causing severe right hydronephrosis and delayed enhancement of the right kidney. There is moderate to severe right renal atrophy which suggest this could be a chronic process. Diffuse edema throughout the abdomen and pelvis. There is mild enhancement of the left kidney which is nonspecific but can be seen in sepsis or acute tubular necrosis. Stomach and bowel: Unremarkable. No obstruction. No mucosal thickening. PELVIS: Appendix: No findings to suggest acute appendicitis. Bladder: The urinary bladder is decompressed by Hernandez catheter. Reproductive: Unremarkable as visualized. ABDOMEN and PELVIS: Intraperitoneal space: Bowel loops are nondilated. There is diffuse edema and small amount of free fluid throughout the abdomen and pelvis. No focal acute bowel abnormality, pneumoperitoneum, or abscess is seen. Bones/joints: Moderate osteoarthritic changes of the left hip. There are moderate to severe degenerative changes throughout the spine. No acute fracture or subluxation is seen. Soft tissues: Unremarkable. Vasculature: Unremarkable. No abdominal aortic aneurysm. Lymph nodes: Unremarkable. No enlarged lymph nodes. Tubes, lines and devices: There is an NG tube terminating at the gastroesophageal junction. There is a 5.4 cm hiatal hernia. The NG tube does not reach the main body of the stomach which is only partially distended. IMPRESSION: 1. There is a 1.5 cm oval calculus in the mid right ureter causing severe right hydronephrosis and delayed enhancement of the right kidney. There is moderate to severe right renal atrophy which suggest this could be a chronic process. 2. Diffuse edema throughout the abdomen and pelvis. There is mild enhancement of the left kidney which is nonspecific but can be seen in sepsis or acute tubular necrosis. 3. Bowel loops are nondilated. There is diffuse edema and small amount of free fluid throughout the abdomen and pelvis. No focal acute bowel abnormality, pneumoperitoneum, or abscess is seen. 4. Edema throughout the pancreas which appears mildly fatty infiltrated. Questionable pancreatitis versus secondary edema from a separate process. 5. There is an NG tube terminating at the gastroesophageal junction. There is a 5.4 cm hiatal hernia. The NG tube does not reach the main body of the stomach which is only partially distended. 6. Peripheral wedge-shaped areas of decreased enhancement of the in the periphery of the liver. Possible perfusion phenomenon. No discrete mass lesion is a visible.
[2023-02-04 11:35] LABS: ANTI-Xa, UFH(UnfractionatedHep 0.38 IU/ml (0.3-0.7)
[2023-02-04] MEDS ORDERED: PNEUMOCOCCAL VACCINE (PCV20) 20-VAL CONJ-DIP CRM/PF 0.5 ML SYR IM ONE (12:00)
[2023-02-04] MEDS ORDERED: VASOPRESSIN 20 UNITS in 0.9 % SODIUM CHLORIDE 100 ML IV SCH (12:15)
--- NOTE | 2023-02-04 12:33 | Electrocardiogram Report ---
Test Reason : Blood Pressure : / mmHG Vent. Rate : 038 BPM Atrial Rate : 038 BPM P-R Int : 206 ms QRS Dur : 088 ms QT Int : 610 ms P-R-T Axes : 078 068 091 degrees QTc Int : 484 ms Marked sinus bradycardia Septal infarct , age undetermined Abnormal ECG No previous ECGs available Confirmed by Jose Sepulveda ([id number]) on 02/04/2023 12:33:32 PM Referred By: REFERRED SELF Confirmed By:Jose Sepulveda
[2023-02-04 12:35] LABS: iSTAT Art Bld Gas pCO2 Correct 32 mmHg (35-46); iSTAT Art Bld Gas pH Corrected 7.267 (7.35-7.45); iSTAT Arterial Blood Gas HCO3 15 meg/L (19-24); iSTAT Arterial Blood Gas pCO2 32 mmHg (35-46); iSTAT Arterial Blood Gas pH 7.27 (7.35-7.45); iSTAT Arterial Blood Gas pO2 114 mmHg (80-95); iSTAT Arterial Blood Gas pO2 C 115; iSTAT Carbon Dioxide 16 mmol/L (24-31); iSTAT FiO2 30 %; iSTAT Hematocrit 31 % (37-47); iSTAT Hemoglobin 10.5 g/dl (12.0-16.0); iSTAT Potassium 5.2 mmol/L (3.3-5.0); iSTAT Site Art Line; iSTAT Sodium 132 mmol/L (135-144)
[2023-02-04] MEDS ORDERED: EPINEPHrine/NSS 4 MG/254 ML BAG IV SCH (13:00)
[2023-02-04 13:21] LABS: BUN Creatinine Ratio 26.1 (10-20); Creatinine Clr Calc Pharmacy 13.1 ml/min; Est GFR (African American) 22.4 ml/min; Est GFR (Non-African American) 19.3 ml/min; Potassium 5.5 mmol/L (3.5-5.1)
--- NOTE | 2023-02-04 14:02 | Surgery Consultation ---
Date of Consultation February 04, 2023 Assessment & Plan (1) Facial laceration: Plan Patient's current dressing includes Surgilube, 2x2 gauze and Optifoam. This is appropriate and will continue with daily dressing changes. Would not consider any bedside debridement or other surgical intervention at this time, but may consider in the future pending patient's overall health. This case was reviewed with Dr. Aponte. History of Present Illness Attending Physician: Jodee Carrasco MD History of Present Illness Ibis is being seen today for consultation regarding traumatic laceration to the left upper face. Ibis is currently intubated and sedated and unable to provide a history, chart review reveals that the patient had not been heard from in approximately 1 week. She was found facedown on the ground by her daughter at home and EMS was summoned where she was intubated in the field. Imaging obtained for the face in the ED as follows: cervical spine CT scan which showed no acute fractures or subluxations. CT scan of the head showed the patient had a left frontal scalp hematoma with some periorbital edema. No skull fractures were identified. 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 No intracranial hemorrhage was noted. A chest x-ray did not appear to have any evidence of infiltrate or pneumonia. A facial CT scan showed findings similar to the head CT where patient was noted to have left periorbital and supraorbital scalp swelling with no facial fractures noted. There is no retrobulbar hematoma. She was also found to have multiple pressure wounds in addition to her head injury. Ibis currently has extensive medical comorbidities including radial artery thrombosis, sepsis, shock, pancreatitis, nephrolith iasis, ARF, metabolic acidosis, UTI, acute encephalopathy and hypothermia. Wound care team has seen the patient, current dressing to head laceration includes Surgilube over exposed bone, 2x2 gauze and Optifoam. Allergies Allergy/AdvReac Type Severity Reaction Status Date / Time No Known Allergies Allergy Unknown Verified 02/03/23 22:15 Home Medications Medication Instructions Recorded Confirmed Type dextroamphetamine-amphetamine 20 20 mg PO TID 03/19/19 02/03/23 History mg tablet (Adderall) ferrous sulfate 325 mg (65 mg 325 mg PO DAILY 03/19/19 02/03/23 History iron) tablet tramadol 50 mg tablet 100 mg PO Q6H PRN Pain 03/19/19 02/03/23 History valacyclovir 1 gram tablet 1,000 mg PO BID PRN as needed 09/24/20 02/03/23 History (Valtrex) cinacalcet 60 mg tablet 60 mg PO BID #60 tabs 12/20/22 02/03/23 Rx Patient History Medical History Vitamin D deficiency Kyphosis Attention 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 hyperactivity Fatigue Hypercalcemia Hyperparathyroidism Nephrolithiasis Kidney stone on right side Hydronephrosis with urinary obstruction due to renal calculus Dental caries Anemia (12/22/12) H/O endoscopy Fecal impaction of colon (06/05/13) Surgical History H/O: section H/O colonoscopy Social History Smoking Status: Unknown if ever smoked Preferred Language: Lao Communication Ability: Unable Welfare Worker Required: No marital status: Current Living Situation: Alone Current Living Situation Comment: Lives at home alone current occupational status: retired Assistive Devices: None Review of Systems Review of Systems: Unobtainable due to endotracheal tube Physical Exam Physical Exam: traumatic laceration to left forehead, extending from lateral eyebrow to the evangelical area. sot tissue is ecchymotic, open with central necrotic fat, exposed bone. no erythema, purulent drainage or foul odor Results & Data Vital Signs (Past 12 Hours) Vital Signs Temp Pulse Pulse Resp BP BP Pulse Ox 02/04/23 12:00 37.1 C 84 40 H 99 02/04/23 11:45 37.0 C 84 40 H 99 02/04/23 11:30 37.0 C 83 41 H 99 02/04/23 11:15 36.9 C 83 40 H 100 02/04/23 11:00 84 40 H 99 02/04/23 11:00 36.9 C 85 41 H 99 02/04/23 10:45 36.8 C 86 39 H 98 02/04/23 10:30 36.8 C 85 38 H 97 02/04/23 10:28 36.8 C 85 40 H 86/48 L 96 02/04/23 10:15 36.7 C 85 38 H 02/04/23 10:00 36.6 C 86 38 H 97 02/04/23 09:45 36.5 C 85 37 H 97 02/04/23 09:30 36.4 C L 85 37 H 97 02/04/23 09:15 36.2 C L 86 38 H 97 02/04/23 09:14 02/04/23 09:00 36.1 C L 84 37 H 98 02/04/23 08:45 35.9 C L 85 35 H 97 02/04/23 08:37 02/04/23 08:30 35.7 C L 85 36 H 96 02/04/23 08:15 35.4 C L 84 38 H 96 02/04/23 08:00 35.1 C L 81 40 H 98 02/04/23 07:45 34.9 C L 79 48 H 100 02/04/23 07:38 75 42 H 99 02/04/23 07:30 34.6 C L 77 40 H 99 02/04/23 07:15 34.3 C L 74 39 H 100 02/04/23 07:00 34.0 C L 72 23 96 02/04/23 06:00 32.7 C L 67 25 H 100 02/04/23 05:30 32.6 C L 64 23 99 02/04/23 05:14 02/04/23 05:00 32.2 C L 60 32 H 97 02/04/23 04:59 59 L 34 H 98 02/04/23 04:50 32.1 C L 59 L 33 H 96 02/04/23 04:40 31.9 C L 58 L 29 H 98 02/04/23 04:30 31.8 C L 57 L 28 H 98 02/04/23 04:20 31.7 C L 56 L 27 H 99 02/04/23 04:10 31.6 C L 56 L 27 H 99 02/04/23 04:05 30.1 C L 26 H 98 02/04/23 04:05 52 L 02/04/23 04:05 02/04/23 04:00 31.5 C L 55 L 30 H 100 02/04/23 03:50 31.5 C L 54 L 28 H 100 02/04/23 03:40 31.4 C L 53 L 26 H 100 02/04/23 03:30 31.3 C L 54 L 27 H 100 02/04/23 03:30 30.6 C L 55 L 26 H 91/51 L 100 02/04/23 03:20 31.2 C L 54 L 27 H 100 02/04/23 03:10 31.1 C L 54 L 29 H 100 02/04/23 03:00 30.9 C L 53 L 27 H 100 02/04/23 02:50 30.5 C L 53 L 26 H 100 02/04/23 02:40 29.1 C L 53 L 28 H 100 02/04/23 02:30 30.8 C L 70 26 H 100 02/04/23 02:30 02/04/23 02:29 30.8 C L 53 L 31 H 100 02/04/23 02:29 128/76 02/04/23 02:20 30.7 C L 55 L 27 H 100 02/04/23 02:10 30.6 C L 54 L 31 H 100 02/04/23 02:00 30.4 C L 115 H 21 99 02/04/23 01:54 30.3 C L 97 H 27 H 100 02/04/23 01:53 69 02/04/23 01:45 62 29 H 99 O2 Del Method O2 Flow Rate FiO2 02/04/23 12:00 02/04/23 11:45 02/04/23 11:30 02/04/23 11:15 Mechanical Vent 0.3 02/04/23 11:00 30 02/04/23 11:00 02/04/23 10:45 Mechanical Vent 02/04/23 10:30 02/04/23 10:28 02/04/23 10:15 02/04/23 10:00 02/04/23 09:45 02/04/23 09:30 02/04/23 09:15 02/04/23 09:14 30 02/04/23 09:00 02/04/23 08:45 02/04/23 08:37 Mechanical Vent 0.3 02/04/23 08:30 02/04/23 08:15 02/04/23 08:00 02/04/23 07:45 02/04/23 07:38 30 02/04/23 07:30 02/04/23 07:15 02/04/23 07:00 02/04/23 06:00 02/04/23 05:30 02/04/23 05:14 30 02/04/23 05:00 02/04/23 04:59 30 02/04/23 04:50 02/04/23 04:40 02/04/23 04:30 02/04/23 04:20 02/04/23 04:10 02/04/23 04:05 Mechanical Vent 50 50 02/04/23 04:05 02/04/23 04:05 50 02/04/23 04:00 02/04/23 03:50 02/04/23 03:40 02/04/23 03:30 02/04/23 03:30 Mechanical Vent 02/04/23 03:20 02/04/23 03:10 02/04/23 03:00 02/04/23 02:50 02/04/23 02:40 02/04/23 02:30 02/04/23 02:30 30 02/04/23 02:29 02/04/23 02:29 02/04/23 02:20 02/04/23 02:10 02/04/23 02:00 02/04/23 01:54 02/04/23 01:53 02/04/23 01:45 40 PG Care Time/CCT Total # of Minutes Spent Total Time Spent with Patient: Total time spent is greater than 50% in coordination of care (as documented) at patient's floor/unit and/or counseling patient: Coding Level of Care Code 43828 OFFICE CONSULT LVL 05/27M Diagnoses Facial laceration S01.81XA
[2023-02-04] MEDS ORDERED: VANCOMYCIN HCL 750 MG in SODIUM CHLORIDE 0.9% 500 ML IV ONE (14:13)
[2023-02-04] MEDS ORDERED: VANCOMYCIN CONSULT ACTIVE PRN (14:13)
[2023-02-04] MEDS ORDERED: HYDROCORTISONE SOD 50 MG in SYRINGE 0 ML IV SCH (14:15)
[2023-02-04] MEDS ORDERED: PATIROMER CALCIUM SORBITEX 8.4 GM PACK PO STA (14:16)
[2023-02-04] MEDS ORDERED: DEXTROSE 50% 50 ML SYRINGE IV STA (14:16)
--- NOTE | 2023-02-04 14:16 | Urology Progress Note ---
Date of Service February 04, 2023 Assessment & Plan (1) UTI (urinary tract infection): (2) Sepsis: (3) Nephrolithiasis: Plan I had a long discussion with her family at the bedside. We reviewed the findings of the right ureteral stone and the suspicion of urinary tract infectio n. Is unclear how much of her current condition is mediated by urinary tract infection and stone. Given the hydronephrosis of the kidney as well as the parenchymal thinning, I suspect the stone has been present for some time. We discussed possibly attempting ureteral stent placement to decompress the kidney. I think this will be challenging as the stone may be quite impacted. Although more definitive drainage could be obtained with nephrostomy tube, the ICU team currently does not think she is stable for transfer to a different facility for the procedure. I discussed risks and benefits of attempting stent placement with her family. We reviewed risks of bleeding, infection, injury to urinary tract, inability to place the stent, need for additional procedures. We discussed that even if the stent goes in, her condition may continue to worsen and may ultimately be fatal. In the setting of worsening clinical condition anyway, they would rather try doing something than doing nothing. We will plan on attempting ureteral stent placement on the right side. Since she is already intubated and sedated, we will plan to attempt this at the bedside. Admission and Anticipated Discharge Date Admission Date: February 04, 2023 Subjective Patient remains intubated and sedated in the ICU, on multiple pressors for blood pressure support. Over the course of the day, family decided they would like to pursue more aggressive measures for care. Physical Exam Physical Exam: Intubated, sedated Results & Data Vital Signs (Past 12 Hours) Vital Signs Temp Pulse Pulse Resp BP BP Pulse Ox 02/04/23 12:00 37.1 C 84 40 H 99 02/04/23 11:45 37.0 C 84 40 H 99 02/04/23 11:30 37.0 C 83 41 H 99 02/04/23 11:15 36.9 C 83 40 H 100 02/04/23 11:00 84 40 H 99 02/04/23 11:00 36.9 C 85 41 H 99 02/04/23 10:45 36.8 C 86 39 H 98 02/04/23 10:30 36.8 C 85 38 H 97 02/04/23 10:28 36.8 C 85 40 H 86/48 L 96 02/04/23 10:15 36.7 C 85 38 H 02/04/23 10:00 36.6 C 86 38 H 97 02/04/23 09:45 36.5 C 85 37 H 97 02/04/23 09:30 36.4 C L 85 37 H 97 02/04/23 09:15 36.2 C L 86 38 H 97 02/04/23 09:14 02/04/23 09:00 36.1 C L 84 37 H 98 02/04/23 08:45 35.9 C L 85 35 H 97 02/04/23 08:37 02/04/23 08:30 35.7 C L 85 36 H 96 02/04/23 08:15 35.4 C L 84 38 H 96 02/04/23 08:00 35.1 C L 81 40 H 98 02/04/23 07:45 34.9 C L 79 48 H 100 02/04/23 07:38 75 42 H 99 02/04/23 07:30 34.6 C L 77 40 H 99 02/04/23 07:15 34.3 C L 74 39 H 100 02/04/23 07:00 34.0 C L 72 23 96 02/04/23 06:00 32.7 C L 67 25 H 100 02/04/23 05:30 32.6 C L 64 23 99 02/04/23 05:14 02/04/23 05:00 32.2 C L 60 32 H 97 02/04/23 04:59 59 L 34 H 98 02/04/23 04:50 32.1 C L 59 L 33 H 96 02/04/23 04:40 31.9 C L 58 L 29 H 98 02/04/23 04:30 31.8 C L 57 L 28 H 98 02/04/23 04:20 31.7 C L 56 L 27 H 99 02/04/23 04:10 31.6 C L 56 L 27 H 99 02/04/23 04:05 30.1 C L 26 H 98 02/04/23 04:05 52 L 02/04/23 04:05 02/04/23 04:00 31.5 C L 55 L 30 H 100 02/04/23 03:50 31.5 C L 54 L 28 H 100 02/04/23 03:40 31.4 C L 53 L 26 H 100 02/04/23 03:30 31.3 C L 54 L 27 H 100 02/04/23 03:30 30.6 C L 55 L 26 H 91/51 L 100 02/04/23 03:20 31.2 C L 54 L 27 H 100 02/04/23 03:10 31.1 C L 54 L 29 H 100 02/04/23 03:00 30.9 C L 53 L 27 H 100 02/04/23 02:50 30.5 C L 53 L 26 H 100 02/04/23 02:40 29.1 C L 53 L 28 H 100 02/04/23 02:30 30.8 C L 70 26 H 100 02/04/23 02:30 02/04/23 02:29 30.8 C L 53 L 31 H 100 02/04/23 02:29 128/76 02/04/23 02:20 30.7 C L 55 L 27 H 100 O2 Del Method O2 Flow Rate FiO2 02/04/23 12:00 02/04/23 11:45 02/04/23 11:30 02/04/23 11:15 Mechanical Vent 0.3 02/04/23 11:00 30 02/04/23 11:00 02/04/23 10:45 Mechanical Vent 02/04/23 10:30 02/04/23 10:28 02/04/23 10:15 02/04/23 10:00 02/04/23 09:45 02/04/23 09:30 02/04/23 09:15 02/04/23 09:14 30 02/04/23 09:00 02/04/23 08:45 02/04/23 08:37 Mechanical Vent 0.3 02/04/23 08:30 02/04/23 08:15 02/04/23 08:00 02/04/23 07:45 02/04/23 07:38 30 02/04/23 07:30 02/04/23 07:15 02/04/23 07:00 02/04/23 06:00 02/04/23 05:30 02/04/23 05:14 30 02/04/23 05:00 02/04/23 04:59 30 02/04/23 04:50 02/04/23 04:40 02/04/23 04:30 02/04/23 04:20 02/04/23 04:10 02/04/23 04:05 Mechanical Vent 50 50 02/04/23 04:05 02/04/23 04:05 50 02/04/23 04:00 02/04/23 03:50 02/04/23 03:40 02/04/23 03:30 02/04/23 03:30 Mechanical Vent 02/04/23 03:20 02/04/23 03:10 02/04/23 03:00 02/04/23 02:50 02/04/23 02:40 02/04/23 02:30 02/04/23 02:30 30 02/04/23 02:29 02/04/23 02:29 02/04/23 02:20 PG Care Time/CCT Total # of Minutes Spent Total Time Spent with Patient: Total time spent is greater than 50% in coordination of care (as documented) at patient's floor/unit and/or counseling patient: Coding Level of Care Code None Diagnoses UTI (urinary tract infection) N39.0 Sepsis A41.9 Nephrolithiasis N20.0
[2023-02-04] MEDS ORDERED: CALCIUM CHLORIDE 10% 500 MG in DEXTROSE 5% 50 ML IV ONE (14:30)
[2023-02-04] MEDS ORDERED: INSULIN HUMAN REGULAR PER UNIT 10 UNITS in SYRINGE 9.9 ML IV ONE (14:30)
--- NOTE | 2023-02-04 14:41 | Hospitalist Progress Note ---
Date of Service February 04, 2023 Assessment & Plan (1) Unresponsive: Plan: 72-year-old female with past med significant for hypercalcemia, primary hypothyroidism, GERD, CKD stage III, restless leg syndrome, depression, attention deficit disorder, anxiety, mood disorder history of C. difficile, herpes simplex, facial cellulitis, was found unresponsive at home. Unresponsive Found unresponsive at home for unknown time. Daughter talked to her about 1 week ago Lactic acidosis. Lactic acid 9.5 on presentation Hypothermia Elevated leukocytosis Bradycardia Remains unresponsive Septic shock secondary to complicated UTI UTI and obstructing right ureteral stone and severe hydronephrosis. Also found to have possible with elevated lipase and pancreatitis and edema the pancreas on CT scan Received IV fluids and on breanna hugger for hypothermia Imaging studies as as mentioned in H&P Urine culture is growing gram-negative bacilli blood culture is pending IV fluids as per critical care Currently on IV cefepime and IV doxycycline Has been on intravenous pressors to maintain blood pressure Transaminitis LFTs are increasing Likely secondary to shock liver We will monitor Right ureteric stone with severe hydronephrosis on the right side Urology recommended initially for no aggressive measures and continue current care Later on there were changed to aggressive care including nephrostomy for the right hydronephrosis The case was extensively discussed by the information technology advisor with the family members Patient was transferred to [facility] for IR intervention Fascial laceration Traumatic laceration of the left forehead extending from lateral eyebrow to the protestant area, soft tissue ecchymosis, open with central necrotic fat with exposed bone and purulent drainage Appreciate surgery input and recommendation Acute thrombus in the left renal artery IV heparin Vascular surgery-discussed with vascular surgery and started on intravenous Likely secondary to prolonged immobility and pressure TRAE and currently stage III Baseline creatinine 1.3 Plan creatinine of 2.1 Follow the labs closely Creatinine has been creeping up, latest noted to be 64/2.45 Appreciate nephrology input and recommendation for continuous renal replacement therapy and IR intervention History of hyperparathyroidism and hypercalcemia Will follow the labs Calcium level in the lower side DVT prophylaxis On IV heparin Close monitoring ICU Conditional code Very Poor Prognosis The case was discussed with the [facility] by the information technology advisor and was transferred to [facility] for continued care Admission and Anticipated Discharge Date Admission Date: February 04, 2023 Subjective 02/04/2023 Patient was seen and examined in ICU Remains intubated and unresponsive Review of Systems Review of Systems: Unobtainable due to endotracheal tube Physical Exam Physical Exam: Remains sedated on mechanical ventilation Constitutional: + ill appearing and + thin Eyes: PERRL, conjunctivae normal, anicteric sclerae ENMT: external ear and nose normal, oropharynx normal Neck: trachea midline, no thyromegaly Respiratory: + respiratory distress Auscultation: + diminished lung sounds Cardiovascular: Rate/Rhythm: regular rate, regular rhythm and + tachycardic Gastrointestinal (Abdomen): Inspection/Auscultation: abdomen not distended Percussion/Palpation: abdomen soft Musculoskeletal: Has osteoarthritic changes in the extremities Neurologic: Remains sedated on vent Results & Data Results & Data Vital Signs (Past 12 Hours) Vital Signs Temp Pulse Pulse Resp BP BP Pulse Ox 02/04/23 12:00 37.1 C 84 40 H 99 02/04/23 11:45 37.0 C 84 40 H 99 02/04/23 11:30 37.0 C 83 41 H 99 02/04/23 11:15 36.9 C 83 40 H 100 02/04/23 11:00 84 40 H 99 02/04/23 11:00 36.9 C 85 41 H 99 02/04/23 10:45 36.8 C 86 39 H 98 02/04/23 10:30 36.8 C 85 38 H 97 02/04/23 10:28 36.8 C 85 40 H 86/48 L 96 02/04/23 10:15 36.7 C 85 38 H 02/04/23 10:00 36.6 C 86 38 H 97 02/04/23 09:45 36.5 C 85 37 H 97 02/04/23 09:30 36.4 C L 85 37 H 97 02/04/23 09:15 36.2 C L 86 38 H 97 02/04/23 09:14 02/04/23 09:00 36.1 C L 84 37 H 98 02/04/23 08:45 35.9 C L 85 35 H 97 02/04/23 08:37 02/04/23 08:30 35.7 C L 85 36 H 96 02/04/23 08:15 35.4 C L 84 38 H 96 02/04/23 08:00 35.1 C L 81 40 H 98 02/04/23 07:45 34.9 C L 79 48 H 100 02/04/23 07:38 75 42 H 99 02/04/23 07:30 34.6 C L 77 40 H 99 02/04/23 07:15 34.3 C L 74 39 H 100 02/04/23 07:00 34.0 C L 72 23 96 02/04/23 06:00 32.7 C L 67 25 H 100 02/04/23 05:30 32.6 C L 64 23 99 02/04/23 05:14 02/04/23 05:00 32.2 C L 60 32 H 97 02/04/23 04:59 59 L 34 H 98 02/04/23 04:50 32.1 C L 59 L 33 H 96 02/04/23 04:40 31.9 C L 58 L 29 H 98 02/04/23 04:30 31.8 C L 57 L 28 H 98 02/04/23 04:20 31.7 C L 56 L 27 H 99 02/04/23 04:10 31.6 C L 56 L 27 H 99 02/04/23 04:05 30.1 C L 26 H 98 02/04/23 04:05 52 L 02/04/23 04:05 02/04/23 04:00 31.5 C L 55 L 30 H 100 02/04/23 03:50 31.5 C L 54 L 28 H 100 02/04/23 03:40 31.4 C L 53 L 26 H 100 02/04/23 03:30 31.3 C L 54 L 27 H 100 02/04/23 03:30 30.6 C L 55 L 26 H 91/51 L 100 02/04/23 03:20 31.2 C L 54 L 27 H 100 02/04/23 03:10 31.1 C L 54 L 29 H 100 02/04/23 03:00 30.9 C L 53 L 27 H 100 02/04/23 02:50 30.5 C L 53 L 26 H 100 O2 Del Method O2 Flow Rate FiO2 02/04/23 12:00 02/04/23 11:45 02/04/23 11:30 02/04/23 11:15 Mechanical Vent 0.3 02/04/23 11:00 30 02/04/23 11:00 02/04/23 10:45 Mechanical Vent 02/04/23 10:30 02/04/23 10:28 02/04/23 10:15 02/04/23 10:00 02/04/23 09:45 02/04/23 09:30 02/04/23 09:15 02/04/23 09:14 30 02/04/23 09:00 02/04/23 08:45 02/04/23 08:37 Mechanical Vent 0.3 02/04/23 08:30 02/04/23 08:15 02/04/23 08:00 02/04/23 07:45 02/04/23 07:38 30 02/04/23 07:30 02/04/23 07:15 02/04/23 07:00 02/04/23 06:00 02/04/23 05:30 02/04/23 05:14 30 02/04/23 05:00 02/04/23 04:59 30 02/04/23 04:50 02/04/23 04:40 02/04/23 04:30 02/04/23 04:20 02/04/23 04:10 02/04/23 04:05 Mechanical Vent 50 50 02/04/23 04:05 02/04/23 04:05 50 02/04/23 04:00 02/04/23 03:50 02/04/23 03:40 02/04/23 03:30 02/04/23 03:30 Mechanical Vent 02/04/23 03:20 02/04/23 03:10 02/04/23 03:00 02/04/23 02:50 Laboratory Results Short CBC 02/03/23 02/04/23 Range/Units 22:24 04:17 WBC 25.22 H 21.61 H (4.8-10.8) K/ul Hgb 12.9 10.1 L (12.0-16.0) g/dl Hct 39.0 28.6 L (37.0-47.0) % Plt Count 156 127 L (130-400) K/uL BMP 02/03/23 02/04/23 02/04/23 22:24 03:21 04:17 Sodium 137 139 138 Potassium 4.5 3.6 3.6 Chloride 99 104 102 Carbon Dioxide 18 L 17 L 18 L BUN 57 H 59 H 60 H Creatinine 2.18 H 1.98 H 2.02 H Glucose 149 H 147 H 180 H Calcium 11.0 H 7.2 L D 7.2 L 02/04/23 02/04/23 08:56 12:44 Sodium 136 136 Potassium 4.9 D 5.5 H Chloride 97 L 94 L Carbon Dioxide 16 L 15 L BUN 62 H 64 H Creatinine 2.19 H 2.45 H Glucose 239 H 248 H Calcium 7.1 L 7.0 L Cardiac Enzymes 02/03/23 Range/Units 22:24 Total Creatine Kinase 710 H (26-192) U/L Liver Function 02/03/23 02/04/23 Range/Units 22:24 08:56 Total Bilirubin 0.7 0.8 (0.2-1.0) mg/dl Direct Bilirubin 0.2 (0-0.2) mg/dl AST 128 H 1503 H (13-39) U/L ALT 66 H 613 H (7-52) U/L Alkaline Phosphatase 155 H 130 H (34-104) U/L Albumin 2.7 L 2.2 L (3.4-5.0) gm/dl Urine 02/03/23 Range/Units 23:13 Urine Color Red Urine Appearance Turbid A (Clear) Urine pH (4.5-7.5) Ur Specific [place] 1.019 (1.000-1.030) Urine Protein (Negative) Urine Glucose (UA) (Negative) Medications Administered Current Inpatient Medications Fentanyl Citrate (Fentanyl Citrate Pf 100 Mcg/2 Ml Vial) 50 mcg IV Q2H PRN PRN Reason: Moderate Pain (4,5,6) on NRS Stop: 02/18/23 01:52 Last Admin: 02/04/23 05:52 Dose: 50 mcg Sodium Bicarbonate 150 meq/ (Dextrose) 1,150 mls @ 150 mls/hr IV .Q7H40M [facility] Stop: 03/06/23 01:52 Last Admin: 02/04/23 10:58 Dose: 150 mls/hr Propofol (Diprivan) 1,000 mg in 100 mls @ 5.73 mls/hr IV .[id number] [facility]; Protocol Stop: 02/07/23 01:59 Last Titration: 02/04/23 07:18 Dose: 25 mcg/kg/min, 5.7 mls/hr Heparin Sodium/Dextrose (Heparin Sodium/Dextrose) 25,000 units in 500 mls @ 14 mls/hr IV .Q24H [facility]; Protocol Stop: 03/06/23 03:29 Last Titration: 02/04/23 07:18 Dose: 700 units/hr, 14 mls/hr Doxycycline Hyclate 100 mg/ (Dextrose) 100 mls @ 50 mls/hr IV Q12H [facility] Stop: 02/06/23 03:59 Last Infusion: 02/04/23 12:12 Dose: Infused Pantoprazole Sodium 40 mg/ (Syringe) 10 mls @ 5 mls/min IV DAILY@1100 [facility] Stop: 03/06/23 10:59 Last Admin: 02/04/23 10:58 Dose: 5 mls/min Norepinephrine Bitartrate (Levophed/D5w) 4 mg in 250 mls @ 40.74 mls/hr IV .Q6H9M [facility]; Protocol Stop: 03/06/23 06:14 Last Admin: 02/04/23 14:51 Dose: 0.28 mcg/kg/min, 40.7 mls/hr Vasopressin 20 units/ Sodium (Chloride) 101 mls @ 12.12 mls/hr IV .Q8H20M [facility] Stop: 03/06/23 12:14 Last Admin: 02/04/23 12:37 Dose: 0.04 unit/min, 12.1 mls/hr Epinephrine HCl () 4 mg in 254 mls @ 2.957 mls/hr IV .Q24H [facility]; Protocol Stop: 03/06/23 12:59 Meropenem 500 mg/ Syringe 10 mls @ 2 mls/min IV Q12H [facility]; Protocol Stop: 02/14/23 14:59 Vancomycin HCl 750 mg/ Sodium (Chloride) 515 mls @ 200 mls/hr IV NOW ONE Stop: 02/04/23 16:47 Hydrocortisone Sodium (Succinate 50 mg/ Syringe) 1 mls @ 4 mls/min IV Q6H [facility] Stop: 03/06/23 14:14 Miscellaneous (Icu Protocol For Hyperglycemia) 1 each N/A ACHS [facility] Stop: 02/06/23 07:29 Last Admin: 02/04/23 13:16 Dose: Not Given Miscellaneous Information (Vancomycin Consult Active) 1 each N/A UD PRN PRN Reason: Consult Stop: 03/06/23 14:12 Propofol (Propofol Bolus From Bag) 20 mg IV Q5M PRN PRN Reason: Sedation Stop: 02/07/23 01:52
[2023-02-04] MEDS ORDERED: MEROPENEM 500 MG in SYRINGE 0 ML IV SCH (15:00)
--- NOTE | 2023-02-04 15:00 | Nephrology Consultation ---
Date of Consultation February 04, 2023 Assessment & Plan (1) ARF (acute renal failure): (2) Metabolic acidosis: (3) Unresponsive: (4) Sepsis: (5) UTI (urinary tract infection): (6) Nephrolithiasis: (7) Hyperkalemia: Plan 72 y o F hospitalized with sepsis with multi organ failure with UTI, right-sided hydronephrosis and possibly nonfunctional right kidney after she was found face down and unresponsive at home. Remained unresponsive, hypothermic and intubated. b/l cr 1. 2-1.3, progressively worsening of renal function, creatinine 2.5, potassium 5.5, bicarb remains low. Has significant lactic acidosis which has been worsening, LFT worsening. Remains anuric. Currently on 3 pressors. --unfortunately patient is at high risk of worsening of renal function as she remains anuric, hypotensive on 3 pressors, worsening liver function, lactic acidosis and abnormal electrolytes. --with Unstable hemodynamics, she will not tolerate regular dialysis, if dialysis considered, she will need to be transferred for continuous renal replacement therapy, however she is not stable for transfer at this point either.. Overall prognosis remains extremely poor --appreciate on going discussion with family regarding goals of care. Thanks for the consult. Will be available for any assistance if needed. History of Present Illness Reason for Consultation: TRAE anuria, hyperkalemia, metabolic acidosis. Attending Physician: Jodee Carrasco MD History of Present Illness Ms. Ibis Vogel is a 72 YOF with past medical history significant for hypertension osteoporosis decent renal function admitted to hospital after she was brought by EMS since he was found down and unresponsive by her daughter at home. Nephrology consult was requested for management for anuric TRAE and multiple electrolyte abnormality. EMR reviewed in detail during patient's visit. Ibis was brought to ER via EMS after being found down at home by her daughter for unknown period of time.. She was intubated in the field, in ER she hypothermic and bradycardic. Lab showed PH 7.09, Co2 62, Hco3 17, Lactate 9, elevated LFT, Cr 1.7, CK.710. Urinalysis with 4 + bacteria, on vanco, meropenem. Ct A/P with rt sided hydro and possible non functional right kidney, or left ? pyelonephritis. Received multiple fluid boluses and Now on 3 pressors. She remained anuria, cr worsening with worsening electrolytes, LFT and lactate now 11. Allergies Allergy/AdvReac Type Severity Reaction Status Date / Time No Known Allergies Allergy Unknown Verified 02/03/23 22:15 Home Medications Medication Instructions Recorded Confirmed Type dextroamphetamine-amphetamine 20 20 mg PO TID 03/19/19 02/03/23 History mg tablet (Adderall) ferrous sulfate 325 mg (65 mg 325 mg PO DAILY 03/19/19 02/03/23 History iron) tablet tramadol 50 mg tablet 100 mg PO Q6H PRN Pain 03/19/19 02/03/23 History valacyclovir 1 gram tablet 1,000 mg PO BID PRN as needed 09/24/20 02/03/23 History (Valtrex) cinacalcet 60 mg tablet 60 mg PO BID #60 tabs 12/20/22 02/03/23 Rx Patient History Medical History (Updated 02/04/23 @ 14:52 by Mariama Ruiz MD) Hyperkalemia Vitamin D deficiency Kyphosis Attention 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 hyperactivity Fatigue Hypercalcemia Hyperparathyroidism Nephrolithiasis Kidney stone on right side Hydronephrosis with urinary obstruction due to renal calculus Dental caries Anemia (12/22/12) H/O endoscopy Fecal impaction of colon (06/05/13) Surgical History H/O: section H/O colonoscopy Social History Smoking Status: Unknown if ever smoked Preferred Language: Lithuanian Communication Ability: Unable Plug Grower Required: No marital status: Current Living Situation: Alone Current Living Situation Comment: Lives at home alone current occupational status: retired Assistive Devices: None Review of Systems Review of Systems: Unobtainable due to endotracheal tube and Unobtainable due to reduced consciousness Physical Exam Constitutional: WD/WN, vitals as above + ill appearing, + cachectic and + mechanically ventilated Respiratory: Auscultation: lungs clear to auscultation bilaterally and + diminished lung sounds Cardiovascular: Rate/Rhythm: regular rate and regular rhythm Heart Sounds: normal S1 and normal S2 Extremities: no edema Gastrointestinal (Abdomen): Inspection/Auscultation: abdomen normal to inspection Percussion/Palpation: abdomen soft Musculoskeletal: Extremities: extremities normal to inspection Skin: + turgor decreased Neurologic: unresponsive Results & Data Vital Signs (Past 12 Hours) Vital Signs Temp Pulse Pulse Resp BP BP Pulse Ox 02/04/23 12:00 37.1 C 84 40 H 99 02/04/23 11:45 37.0 C 84 40 H 99 02/04/23 11:30 37.0 C 83 41 H 99 02/04/23 11:15 36.9 C 83 40 H 100 02/04/23 11:00 84 40 H 99 02/04/23 11:00 36.9 C 85 41 H 99 02/04/23 10:45 36.8 C 86 39 H 98 02/04/23 10:30 36.8 C 85 38 H 97 02/04/23 10:28 36.8 C 85 40 H 86/48 L 96 02/04/23 10:15 36.7 C 85 38 H 02/04/23 10:00 36.6 C 86 38 H 97 02/04/23 09:45 36.5 C 85 37 H 97 02/04/23 09:30 36.4 C L 85 37 H 97 02/04/23 09:15 36.2 C L 86 38 H 97 02/04/23 09:14 02/04/23 09:00 36.1 C L 84 37 H 98 02/04/23 08:45 35.9 C L 85 35 H 97 02/04/23 08:37 02/04/23 08:30 35.7 C L 85 36 H 96 02/04/23 08:15 35.4 C L 84 38 H 96 02/04/23 08:00 35.1 C L 81 40 H 98 02/04/23 07:45 34.9 C L 79 48 H 100 02/04/23 07:38 75 42 H 99 02/04/23 07:30 34.6 C L 77 40 H 99 02/04/23 07:15 34.3 C L 74 39 H 100 02/04/23 07:00 34.0 C L 72 23 96 02/04/23 06:00 32.7 C L 67 25 H 100 02/04/23 05:30 32.6 C L 64 23 99 02/04/23 05:14 02/04/23 05:00 32.2 C L 60 32 H 97 02/04/23 04:59 59 L 34 H 98 02/04/23 04:50 32.1 C L 59 L 33 H 96 02/04/23 04:40 31.9 C L 58 L 29 H 98 02/04/23 04:30 31.8 C L 57 L 28 H 98 02/04/23 04:20 31.7 C L 56 L 27 H 99 02/04/23 04:10 31.6 C L 56 L 27 H 99 02/04/23 04:05 30.1 C L 26 H 98 02/04/23 04:05 52 L 02/04/23 04:05 02/04/23 04:00 31.5 C L 55 L 30 H 100 02/04/23 03:50 31.5 C L 54 L 28 H 100 02/04/23 03:40 31.4 C L 53 L 26 H 100 02/04/23 03:30 31.3 C L 54 L 27 H 100 02/04/23 03:30 30.6 C L 55 L 26 H 91/51 L 100 02/04/23 03:20 31.2 C L 54 L 27 H 100 02/04/23 03:10 31.1 C L 54 L 29 H 100 02/04/23 03:00 30.9 C L 53 L 27 H 100 02/04/23 02:50 30.5 C L 53 L 26 H 100 O2 Del Method O2 Flow Rate FiO2 02/04/23 12:00 02/04/23 11:45 02/04/23 11:30 02/04/23 11:15 Mechanical Vent 0.3 02/04/23 11:00 30 02/04/23 11:00 02/04/23 10:45 Mechanical Vent 02/04/23 10:30 02/04/23 10:28 02/04/23 10:15 02/04/23 10:00 02/04/23 09:45 02/04/23 09:30 02/04/23 09:15 02/04/23 09:14 30 02/04/23 09:00 02/04/23 08:45 02/04/23 08:37 Mechanical Vent 0.3 02/04/23 08:30 02/04/23 08:15 02/04/23 08:00 02/04/23 07:45 02/04/23 07:38 30 02/04/23 07:30 02/04/23 07:15 02/04/23 07:00 02/04/23 06:00 02/04/23 05:30 02/04/23 05:14 30 02/04/23 05:00 02/04/23 04:59 30 02/04/23 04:50 02/04/23 04:40 02/04/23 04:30 02/04/23 04:20 02/04/23 04:10 02/04/23 04:05 Mechanical Vent 50 50 02/04/23 04:05 02/04/23 04:05 50 02/04/23 04:00 02/04/23 03:50 02/04/23 03:40 02/04/23 03:30 02/04/23 03:30 Mechanical Vent 02/04/23 03:20 02/04/23 03:10 02/04/23 03:00 02/04/23 02:50 PG Care Time/CCT Total # of Minutes Spent Total Time Spent with Patient: Total time spent is greater than 50% in coordination of care (as documented) at patient's floor/unit and/or counseling patient: Coding Level of Care Code 82533 INT INP/OBS CARE 3/75MIN Diagnoses ARF (acute renal failure) N17.9 Metabolic acidosis E87.20 Unresponsive R41.89 Sepsis A41.9 UTI (urinary tract infection) N39.0 Nephrolithiasis N20.0 Hyperkalemia E87.5
--- NOTE | 2023-02-04 15:01 | Pharmacy Report ---
Pharmacy PK ABX Note - Date of Service February 04, 2023 - Assessment and Plan Assessment 72 year old F receiving vanc/meropenem for treatment of septic shock with likely urinary source. Pertinent microbiologic data includes: gram negative bacilli in the urine. BCx pending. Day # 2 of antimicrobial therapy. Plan Vancomycin * Loading dose: 750 mg IV x 1 * Will dose by levels given TRAE * Random level ordered for: 02/04/23 with am labs Pharmacy will continue to follow and will adjust dose/frequency as necessary. Thank you. Pharmacy has transitioned to AUC monitoring for vancomycin. AUC/NICOLETTE is the preferred PK/PD target and is associated with decreased risk of nephrotoxicity compared to traditional trough targets.
--- NOTE | 2023-02-04 15:14 | Communication Note ---
Date of Service: February 04, 2023 I had multiple discussions with the patient's family and reevaluated the patient on numerous occasions today. I called [facility] regarding possible transfer for nephrostomy tube and higher level of care. Unfortunately, they did not have any beds available for transfer. I spoke with nephrology regarding the possibility hemodialysis and it is felt that she would not tolerate HD in our institution and CRRT would be required. I spoke with Dr. Garcia of urology who is going to attempt an urgent stent placement at bedside. The family was updated regarding all of those and they wish to continue with aggressive measures and are requesting further attempts at transferring the patient. I spoke with Dr. Covington of the medical ICU at [facility] and Dr. Grijalva of interventional radiology of [facility]. They were excepting the patient for transfer and they have 3 beds available. The patient will be life flighted to [facility] as soon as possible for nephrostomy tube placement and possible CRRT. I am escalating her antibiotics to meropenem and vancomycin. We will continue the heparin infusion given the patient's arterial occlusion in her radial artery. Her lactic acidosis is worsening. Will continue with bicarb infusion. Her mortality is very high at this time given her severe frailty at baseline and overwhelming septic shock. We are continuing Levophed and vasopressin. I have ordered epinephrine and stress dose steroids as well. CRITICAL CARE TIME - I have personally spent 87 minutes of critical care time in the direct management of this patient. This is a life/limb threatening event. This includes time spent evaluating patient, direct bedside care, chart review, placing orders, interpretation of diagnostic studies, discussion with consultants, patient, and family members, as well as other required patient management activities. This time is exclusive of all separately billable procedures, and teaching time and separate from and in addition to any other critical care service time. Coding Level of Care Code 16918 Prolonged Care (int'l) (25 - SIGNIFICANT, SEPARATELY IDENTIFIABLE ) Time Spent (min) 87
--- NOTE | 2023-02-04 15:40 | Procedure Note ---
Procedure Note Date of Service February 04, 2023 Note Procedure note for cystoscopy and attempted stent placement. Indications: This is a 72-year-old female currently hospitalized. Recent CT scan demonstrated a large obstructing stone in the right ureter with dilated kidney, suggesting chronic obstruction. Urinalysis was positive for bacteria and blood and she has had hypotension, currently being managed with pressors. Out of concern for septic shock and question of whether she is stable enough for transfer for nephrostomy tube, she is undergoing attempted stent placement at the bedside. Description of procedure: The patient was identified and informed consent was obtained from her children acting as POA. She was prepped and draped in the usual sterile fashion a timeout was then performed. A well-lubricated cystoscope was inserted per urethra. Both ureteral orifices were in orthotopic position bilaterally. 5 [place]onian open-ended catheter was used to guide a 0.038 inch zip wire toward the right ureteral orifice. The wire was advanced, but met resistance and seem to c url back on itself. I attempted to advance the 5 [place]onian open-ended catheter up to this level and then reposition the wire. The wire would not advance past what was suspected to be the obstructing stone. The cystoscope was withdrawn, leaving the wire and the open-ended catheter in place. I attempted to manipulate these and also used a Amplatz Super Stiff wire to try to navigate the channel passed the stone, however no such patches could be identified. Over the wire, I advanced a flexible ureteroscope. This advanced up the ureter to approximately the level of the stone in the proximal ureter. At this point, there was a redundant fold, making essentially a 180 degree turn. I attempted to use wires, including the super-stiff, straight tip and angled tip ZIPwires, to navigate this turn, but the scope could not be advanced. I suspect the ureter was distorted from the stone. It became clear that stent placement would not be possible. At this point all instrumentation was removed and a temperature-sensing Hernandez catheter was placed per urethra. The balloon was inflated with 10 mL of normal saline. Plan: Patient is going to be transferred to tertiary center for attempt at nephrostomy tube placement and ongoing care. Coding
--- NOTE | 2023-02-04 22:38 | Electroencephalogram ---
EEG Procedure Note Date of Service February 04, 2023 Start / End Times Start Time: 10:25 End Time: 10:45 Referring Physician Leoncio Rhodes History A 72 year old female intubated and sedated after being found unresponsive. EEG performed for evaluation of epileptiform acitivity. Home Medication List Medication Instructions Recorded Confirmed Type dextroamphetamine-amphetamine 20 20 mg PO TID 03/19/19 02/03/23 History mg tablet (Adderall) ferrous sulfate 325 mg (65 mg 325 mg PO DAILY 03/19/19 02/03/23 History iron) tablet tramadol 50 mg tablet 100 mg PO Q6H PRN Pain 03/19/19 02/03/23 History valacyclovir 1 gram tablet 1,000 mg PO BID PRN as needed 09/24/20 02/03/23 His tory (Valtrex) cinacalcet 60 mg tablet 60 mg PO BID #60 tabs 12/20/22 02/03/23 Rx Inpatient Medication List Discontinued Medications Calcium Gluconate (Calcium Gluconate 1000 Mg/60 Ml Nss) Confirm Administered Dose 1,000 mg IV .STK-MED ONE Stop: 02/03/23 22:00 Last Admin: 02/03/23 23:05 Dose: Not Given Documented By: MELONIE Fentanyl Citrate (Fentanyl Citrate Pf 100 Mcg/2 Ml Vial) 50 mcg IV Q2H PRN PRN Reason: Moderate Pain (4,5,6) on NRS Stop: 02/18/23 01:52 Last Admin: 02/04/23 05:52 Dose: 50 mcg Documented By: TREVOR Heparin Sodium/Dextrose (Heparin Iv Adult Wt-Based Standard W/ Initial Bolus Protocol) 1 each IV NOW STA; Protocol Stop: 02/04/23 03:05 Last Admin: 02/04/23 04:57 Dose: Not Given Documented By: TREVOR Heparin Sodium/Dextrose (Heparin Iv Adult Wt-Based Standard *No* Initial Bolus Protocol) 1 each IV ONE STA; Protocol Stop: 02/04/23 03:05 Last Admin: 02/04/23 05:01 Dose: Not Given Documented By: TREVOR Sodium Chloride (Nss) 1,000 mls @ 999 mls/hr IV .Q1H1M ONE Stop: 02/03/23 23:12 Last Infusion: 02/03/23 23:18 Dose: Infused Documented By: Admin: 02/03/23 21:59 Dose: 999 mls/hr Documented By: ARS Calcium Gluconate () 1,000 mg in 60 mls @ 240 mls/hr IV NOW STA Stop: 02/03/23 22:26 Last Infusion: 02/03/23 23:18 Dose: Infused Documented By: Admin: 02/03/23 21:59 Dose: 240 mls/hr Documented By: ARS Ceftriaxone Sodium (Rocephin) 2,000 mg in 50 mls @ 100 mls/hr IV NOW STA Stop: 02/04/23 00:55 Last Infusion: 02/04/23 01:18 Dose: Infused Documented By: Admin: 02/04/23 00:42 Dose: 100 mls/hr Documented By: CHRISTIAN Parenteral Electrolytes (Plasma-Lyte A Ph 7.4) 1,000 mls @ 999 mls/hr IV .Q1H1M ONE Stop: 02/04/23 01:42 Last Infusion: 02/04/23 04:04 Dose: Infused Documented By: Admin: 02/04/23 01:03 Dose: 999 mls/hr Documented By: CHRISTIAN Sodium Bicarbonate 150 meq/ (Dextrose) 1,150 mls @ 150 mls/hr IV .Q7H40M SUSSY Stop: 03/06/23 01:52 Last Admin: 02/04/23 10:58 Dose: 150 mls/hr Documented By: Infusion: 02/04/23 10:50 Dose: Infused Documented By: Admin: 02/04/23 03:09 Dose: 150 mls/hr Documented By: FLY Propofol (Diprivan) 1,000 mg in 100 mls @ 5.73 mls/hr IV .[id number] [facility]; Protocol Stop: 02/07/23 01:59 Last Admin: 02/04/23 15:32 Dose: 25 mcg/kg/min, 5.7 mls/hr Documented By: SOREN Co-signed By: OZ Titration: 02/04/23 15:32 Dose: Infused Documented By: SOREN Co-signed By: OZ Titration: 02/04/23 07:18 Dose: 25 mcg/kg/min, 5.7 mls/hr Documented By: SOREN Co-signed By: FLY Titration: 02/04/23 05:52 Dose: 25 mcg/kg/min, 5.7 mls/hr Documented By: Admin: 02/04/23 03:07 Dose: 20 mcg/kg/min, 4.6 mls/hr Documented By: FLY Co-signed By: TREVOR Cefepime HCl 1,000 mg/ Syringe 10 mls @ 5 mls/min IV Q12H SUSSY; Protocol Stop: 02/09/23 04:59 Last Admin: 02/04/23 05:22 Dose: 5 mls/min Documented By: FLY Heparin Sodium/Dextrose (Heparin Sodium/Dextrose) 25,000 units in 500 mls @ 14 mls/hr IV .Q24H SUSSY; Protocol Stop: 03/06/23 03:29 Last Titration: 02/04/23 07:18 Dose: 700 units/hr, 14 mls/hr Documented By: SOREN Co-signed By: FLY Admin: 02/04/23 05:37 Dose: 700 units/hr, 14 mls/hr Documented By: FLY Co-signed By: TREVOR Doxycycline Hyclate 100 mg/ (Dextrose) 100 mls @ 50 mls/hr IV Q12H SUSSY Stop: 02/06/23 03:59 Last Infusion: 02/04/23 12:12 Dose: Infused Documented By: Admin: 02/04/23 05:23 Dose: 50 mls/hr Documented By: FLY Parenteral Electrolytes (Plasma-Lyte A Ph 7.4) 1,000 mls @ 999 mls/hr IV .Q1H1M ONE Stop: 02/04/23 06:14 Last Infusion: 02/04/23 05:43 Dose: Infused Documented By: Admin: 02/04/23 05:43 Dose: 999 mls/hr Documented By: TREVOR Pantoprazole Sodium 40 mg/ (Syringe) 10 mls @ 5 mls/min IV DAILY@1100 SUSSY Stop: 03/06/23 10:59 Last Admin: 02/04/23 10:58 Dose: 5 mls/min Documented By: SOREN Parenteral Electrolytes (Plasma-Lyte A Ph 7.4) 500 mls @ 999 mls/hr IV .Q31M ONE Stop: 02/04/23 06:44 Last Infusion: 02/04/23 07:09 Dose: Infused Documented By: Admin: 02/04/23 06:33 Dose: 999 mls/hr Documented By: CP Norepinephrine Bitartrate (Levophed/D5w) 4 mg in 250 mls @ 40.74 mls/hr IV .Q6H9M SUSSY; Protocol Stop: 03/06/23 06:14 Last Admin: 02/04/23 14:51 Dose: 0.28 mcg/kg/min, 40.7 mls/hr Documented By: CAM Co-signed By: OZ Titration: 02/04/23 14:51 Dose: Infused Documented By: CAM Co-signed By: OZ Titration: 02/04/23 12:16 Dose: 0.28 mcg/kg/min, 40.7 mls/hr Documented By: Titration: 02/04/23 11:50 Dose: 0.26 mcg/kg/min, 37.8 mls/hr Documented By: Titration: 02/04/23 11:20 Dose: 0.24 mcg/kg/min, 34.9 mls/hr Documented By: Titration: 02/04/23 10:50 Dose: 0.21 mcg/kg/min, 30.6 mls/hr Documented By: Titration: 02/04/23 10:00 Dose: 0.18 mcg/kg/min, 26.2 mls/hr Documented By: Titration: 02/04/23 09:21 Dose: 0.15 mcg/kg/min, 21.8 mls/hr Documented By: Titration: 02/04/23 08:40 Dose: 0.13 mcg/kg/min, 18.9 mls/hr Documented By: Titration: 02/04/23 07:18 Dose: 0.1 mcg/kg/min, 14.6 mls/hr Documented By: CAM Co-signed By: TLM Titration: 02/04/23 06:57 Dose: 0.1 mcg/kg/min, 14.6 mls/hr Documented By: Admin: 02/04/23 06:53 Dose: 0.05 mcg/kg/min, 7.3 mls/hr Documented By: CP Co-signed By: TLM Vasopressin 20 units/ Sodium (Chloride) 101 mls @ 12.12 mls/hr IV .Q8H20M SUSSY Stop: 03/06/23 12:14 Last Admin: 02/04/23 12:37 Dose: 0.04 unit/min, 12.1 mls/hr Documented By: SOREN Co-signed By: OZ Ioversol (Optiray 320 500ml) 90 ml IV ONCE ONE Stop: 02/04/23 01:35 Last Admin: 02/04/23 01:35 Dose: 90 ml Documented By: RAMBO Miscellaneous (Icu Protocol For Hyperglycemia) 1 each N/A ACHS SUSSY Stop: 02/06/23 07:29 Last Admin: 02/04/23 13:16 Dose: Not Given Documented By: Admin: 02/04/23 10:58 Dose: Not Given Documented By: SOREN Miscellaneous (Patient's Height &/Or Weight Needed) 1 each N/A NOW STA Stop: 02/04/23 03:50 Last Admin: 02/04/23 05:01 Dose: Not Given Documented By: CP Pneumococcal 20-Valent Conj Vacc (Pneumococcal Vaccine (Pcv20) 20-Romina Conj-Dip Crm/Pf 0.5 Ml Syr) 0.5 ml IM .ONCE ONE Stop: 02/04/23 12:01 Last Admin: 02/04/23 12:11 Dose: Not Given Documented By: SOREN Propofol (Propofol Iv Emulsion 10 Mg/Ml 100 Ml Vial) Confirm Administered Dose 1,000 mg IV .STK-MED ONE Stop: 02/04/23 01:53 Last Admin: 02/04/23 03:08 Dose: Not Given Documented By: TLAnselmo Sodium Bicarbonate (Sodium Bicarb 8.4% Inj 50 Meq/50 Ml Syr) 50 meq IV NOW STA Stop: 02/04/23 00:08 Last Admin: 02/04/23 00:23 Dose: 50 meq Documented By: JKP Sodium Bicarbonate (Sodium Bicarb 8.4% Inj 50 Meq/50 Ml Syr) 50 meq IV NOW STA Stop: 02/04/23 13:38 Last Admin: 02/04/23 14:22 Dose: 50 meq Documented By: SOREN Description This is a 21 electrode EEG with a single channel dedicated to limited EKG. The electrodes were placed in accordance with the International 10-20 system. REPORT: At the onset of the EEG the patient is in an altered mental state. The background is disorganized and discontinous. There is a loss of the normal anterior to posterior gradient. The background is suppressed with burst of polymorphic delta activity with intermixed faster frequencies. Interpretation IMPRESSION: THis is an abnormal routine EEG in a patient with altered mentation due to severe background suppression and burst suppression pattern suggestive of a very severe encephalopathy. No epileptiform activity is seen. Burst suppression is non specific and can medication related but is also commonly seen following hypoxic-ischemic injury.
[2023-02-05 01:44] LABS: A calco-baum cmplx NotReported Not Detected (NotDetected); Bact fragilis Not Reported Not Detected (NotDetected); Blood Culture Id Panel See PCR Comment (NotDetected); C auris Not Reported Not Detected (NotDetected); Calbicans Not Reported Not Detected (NotDetected); Candida glabrata Not Reported Not Detected (NotDetected); Candida krusei Not Reported Not Detected (NotDetected); Cneoformans/gatti Not Reported Not Detected (NotDetected); Cparapsilosis Not Reported Not Detected (NotDetected); E cloacae compx Not Reported Not Detected (NotDetected); Efaecalis Not Reported Not Detected (NotDetected); Efaecium Not Reported Not Detected (NotDetected); Enterobacterales Not Reported Not Detected (NotDetected); Escherichia coli Not Reported Not Detected (NotDetected); H influenzae Not Reported Not Detected (NotDetected); K aerogenes Not Reported Not Detected (NotDetected); Koxytoca Not Reported Not Detected (NotDetected); Kpneumoniae grp Not Reported Not Detected (NotDetected); Lmonocyt Not Reported Not Detected (NotDetected); N meningitidis Not Reported Not Detected (NotDetected); P aeruginosa Not Reported Not Detected (NotDetected); Proteus spp Not Reported Not Detected (NotDetected); Salmonella spp Not Reported Not Detected (NotDetected); Smarcescens Not Reported Not Detected (NotDetected); Staph lugdunensis Not Reported Not Detected (NotDetected); Staph spp. Not Reported DETECTED (NotDetected); Staphaureus Not Reported Not Detected (NotDetected); Staphepi Not Reported DETECTED (NotDetected); Staphylococcus spp. DETECTED (NotDetected); Stenmaltophilia Not Reported Not Detected (NotDetected); Strep agal(GrpB) Not Reported Not Detected (NotDetected); Strep pneum Not Reported Not Detected (NotDetected); Strep pyog (GrpA) Not Reported Not Detected (NotDetected); Strep spp Not Reported Not Detected (NotDetected); mecAC Resistant Gene DETECTED (NotDetected)
[2023-02-05 02:40] LABS: Staphylococcus epidermidis DETECTED (NotDetected)
--- NOTE | 2023-02-05 08:30 | Discharge Summary ---
Date of Service February 05, 2023 Admission HPI Per Admitting Provider 72-year-old female with past med significant for hypercalcemia, primary hypothyroidism, GERD, CKD stage III, restless leg syndrome, depression, attention deficit disorder, anxiety, mood disorder history of C. difficile, herpes simplex, facial cellulitis, was found unresponsive at home. Seems patient did not communicate with family for about a week and daughter found her unresponsive at home. EMS intubated in the field as patient was not protecting her airway. On presentation her temperature was 27.7 C, bradycardic with heart rates in 30s and 40s, blood pressure soft, WBC 25, VBG pH 7.05, creatinine 2.18, lactic acid 9.5, CPK 710, lipase 9680 UA positive, MRSA screen came back positive, drug screen came back positive for benzos. Patient found to have injuries which seem to be like pressure ulcers on left orbit region, left shoulder and left thigh region. Her left hand was also red and mottled with poor pulses. 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 No hemorrhage seen. Face CT shows left periorbital and supraorbital scalp swelling. No facial fractures seen. CT cervical spine shows no fractures. Chest CT with IV contrast shows, no PE seen, mild emphysematous changes. CT abdomen pelvis with IV contrast shows 1.5 cm calculus in the mid right ureter causing severe right hydronephrosis and delayed enhancement of the right kidney. Moderate to severe right renal atrophy could be chronic and mild enhancement the left kidney which is nonspecific but can be seen in sepsis or acute tubular necrosis. Diffuse edema of the abdomen pelvis . Questionable pancreatitis and peripheral wedge-shaped areas of decreased enhancement in the periphery of the liver. Left upper extremity arterial Doppler shows acute thrombosis of left radial artery at its origin and throughout the course of the forearm. Patient was given Rocephin and warm IV fluids and placed on Breanna hugger in the ER. Also received sodium bicarb.Received IV fluids about 4 L but did not made urine yet. ICU discussed with urology and based on the findings urology recommend nephrostomy tubes if aggressive management decided. Critical care care talked with vascular surgery and was recommend IV heparin for now. Called daughter and notified of the findings and requested to come to the hospital for further discussion regarding further management . Daughter and came to the hospital. Critical care discussed with daughter and her and was notified patient current status and very poor prognosis. Daughter was given the options of continuing current management with fluids and antibiotics closely follow the hemodynamics and labs and and monitor her hypothermia and see how she does and if deteriorates and can decide about DNR and comfort care or for terminal extubation and comfort care given patient poor prognosis or transfer to tertiary care for nephrostomy tubes and further management. Daughter's fathers seems to physician. Family decided DNR for now and continue current management for now. Reviewing endocrinology notes from February 2022 because of her primary hyperparathyroidism and hypercalcemia surgery was discussed at each visit but patient seemed too afraid for surgery ,seems she also declined trial of cinacalcet early but later agreed to take it. Seems there was a plan for lithotripsy and stent placement 2015 for obstructing stone in the proximal right ureter but seems was never accomplished. Past medical history. As mentioned above Past surgical history. Bilateral bunion correction. . Colonoscopy. Cystourethroscopy with lithotripsy. EGD with biopsy. Facelift. Nasal defect repair Social history. Smoked 1 pack of 10 years. Quit 30 years ago. No alcohol use. No drug use. Family history. No family history on file Admission Exam Per Admitting Provider Physical Exam: General- s/p intubated. Head- Bruise seen on left orbit and surrounding regions. Eyes- pupils sluggish to react. Left orbit swollen and erythematous. Neck- no JVD. Lungs- clear to auscultation No wheezing or crackles. Heart- Bradycardia; no murmur, no gallop Abdomen- sluggish bowel sounds, soft, no distension. Extremities- no pretibial edema, Left hand is erythematous and mottled. Neuro- unresponsive, s.p intubated. Skin- bruise/pressure ulcer seen on left temporal region, left shoulder and left hip region. Principal Diagnosis Septic Shock,Severe Rt Hydronephrosis,Complicated UTI,Unresponsive on Mechanical Vent Discharge Exam Remains sedated on mechanical ventilation Constitutional + ill appearing and + thin Eyes PERRL, conjunctivae normal, anicteric sclerae ENMT external ear and nose normal, oropharynx normal Neck trachea midline, no thyromegaly Respiratory + respiratory distress Auscultation: + diminished lung sounds Cardiovascular Rate/Rhythm: regular rate, regular rhythm and + tachycardic Gastrointestinal (Abdomen) Inspection/Auscultation: abdomen not distended Percussion/Palpation: abdomen soft Discharge Data Allergies Allergy/AdvReac Type Severity Reaction Status Date / Time No Known Allergies Allergy Unknown Verified 02/03/23 22:15 Consultations 02/04/23 00:10 ED Decision to Admit Stat 02/04/23 01:53 Consult Case Management Assistant Routine 02/04/23 03:10 Consult Urology Stat 02/04/23 07:33 Consult Nephrology Routine 02/04/23 08:40 Consult Plastic Surgery Routine 02/04/23 09:07 Consult Gastroenterology Routine 02/04/23 14:35 Burn CD for patient Stat Procedures Performed Operation Date: 02/04/23 15:30 Actual Procedures p Procedure done bedside in ICU - Kanu Garcia MD Ordered Studies 02/03/23 22:11 CT cervical spine wo con Stat CT head/brain wo con Stat 02/03/23 22:39 CT face [CT facial bones wo con] Stat 02/04/23 00:07 CT abd pelvis IV con only Urgent 02/04/23 00:38 CT chest diagnostic w con Stat 02/04/23 02:25 US doppler arm [US arterial duplex UE LT] Stat Hospital Course (1) Unresponsive: 72-year-old female with past med significant for hypercalcemia, primary hypothyroidism, GERD, CKD stage III, restless leg syndrome, depression, attention deficit disorder, anxiety, mood disorder history of C. difficile, herpes simplex, facial cellulitis, was found unresponsive at home. Unresponsive Found unresponsive at home for unknown time. Daughter talked to her about 1 week ago Lactic acidosis. Lactic acid 9.5 on presentation Hypothermia Elevated leukocytosis Bradycardia Remains unresponsive Septic shock secondary to complicated UTI UTI and obstructing right ureteral stone and severe hydronephrosis. Also found to have possible with elevated lipase and pancreatitis and edema the pancreas on CT scan Received IV fluids and on breanna hugger for hypothermia Imaging studies as as mentioned in H&P Urine culture is growing gram-negative bacilli blood culture is pending IV fluids as per critical care Currently on IV cefepime and IV doxycycline Has been on intravenous pressors to maintain blood pressure Transaminitis LFTs are increasing Likely secondary to shock liver We will monitor Right ureteric stone with severe hydronephrosis on the right side Urology recommended initially for no aggressive measures and continue current care Later on there were changed to aggressive care including nephrostomy for the right hydronephrosis The case was extensively discussed by the [employer] with the family members Patient was transferred to [facility] for IR intervention Fascial laceration Traumatic laceration of the left forehead extending from lateral eyebrow to the methodist area, soft tissue ecchymosis, open with central necrotic fat with exposed bone and purulent drainage Appreciate surgery input and recommendation Acute thrombus in the left renal artery IV heparin Vascular surgery-discussed with vascular surgery and started on intravenous Likely secondary to prolonged immobility and pressure TRAE and currently stage III Baseline creatinine 1.3 Plan creatinine of 2.1 Follow the labs closely Creatinine has been creeping up, latest noted to be 64/2.45 Appreciate nephrology input and recommendation for continuous renal replacement therapy and IR intervention History of hyperparathyroidism and hypercalcemia Will follow the labs Calcium level in the lower side DVT prophylaxis On IV heparin Close monitoring ICU Conditional code Very Poor Prognosis The case was discussed with the [facility] by the [employer] and was transferred to [facility] for continued care Total Time Total Time Spent Total Time Spent (In Minutes): 45 minutes Discharge Plan Discharge Items Patient Disposition: Transfer Acute Care Hospital Reason For Visit: UNRESPONSIVE Discharge Diagnosis: Septic Shock,Severe Rt Hydronephrosis,Complicated UTI,Unresponsive on Mechanical Vent Condition on Discharge: Critical Activity: As commented below Activity Comment: Bed bound Non-emergency contact: Primary Care Provider Call non-emergency contact if: you have any medication questions and your symptoms worsen Follow-up/Referrals: Ish Medina MD [Primary Care Provider] - (Please make an appointment with your PCP with in 7 days following discharge from the facility) Diet: Other - See Diet Comment Diet Comment: NPO Addtl Attending Provider Instructions: Transferred to [facility] Addtl Surgical Pathologist Provider Instructions: All of her in-patient medications were continued as below: Current Inpatient Medications Fentanyl Citrate (Fentanyl Citrate Pf 100 Mcg/2 Ml Vial) 50 mcg IV Q2H PRN PRN Reason: Moderate Pain (4,5,6) on NRS Stop: 02/18/23 01:52 Last Admin: 02/04/23 05:52 Dose: 50 mcg Sodium Bicarbonate 150 meq/ (Dextrose) 1,150 mls @ 150 mls/hr IV .Q7H40M [facility] Stop: 03/06/23 01:52 Last Admin: 02/04/23 10:58 Dose: 150 mls/hr Propofol (Diprivan) 1,000 mg in 100 mls @ 5.73 mls/hr IV .[id number] SUSSY; Protocol Stop: 02/07/23 01:59 Last Titration: 02/04/23 07:18 Dose: 25 mcg/kg/min, 5.7 mls/hr Heparin Sodium/Dextrose (Heparin Sodium/Dextrose) 25,000 units in 500 mls @ 14 mls/hr IV .Q24H SUSSY; Protocol Stop: 03/06/23 03:29 Last Titration: 02/04/23 07:18 Dose: 700 units/hr, 14 mls/hr Doxycycline Hyclate 100 mg/ (Dextrose) 100 mls @ 50 mls/hr IV Q12H SUSSY Stop: 02/06/23 03:59 Last Infusion: 02/04/23 12:12 Dose: Infused Pantoprazole Sodium 40 mg/ (Syringe) 10 mls @ 5 mls/min IV DAILY@1100 SUSSY Stop: 03/06/23 10:59 Last Admin: 02/04/23 10:58 Dose: 5 mls/min Norepinephrine Bitartrate (Levophed/D5w) 4 mg in 250 mls @ 40.74 mls/hr IV .Q6H9M SUSSY; Protocol Stop: 03/06/23 06:14 Last Admin: 02/04/23 14:51 Dose: 0.28 mcg/kg/min, 40.7 mls/hr Vasopressin 20 units/ Sodium (Chloride) 101 mls @ 12.12 mls/hr IV .Q8H20M [facility] Stop: 03/06/23 12:14 Last Admin: 02/04/23 12:37 Dose: 0.04 unit/min, 12.1 mls/hr Epinephrine HCl () 4 mg in 254 mls @ 2.957 mls/hr IV .Q24H SUSSY; Protocol Stop: 03/06/23 12:59 Meropenem 500 mg/ Syringe 10 mls @ 2 mls/min IV Q12H SUSSY; Protocol Stop: 02/14/23 14:59 Vancomycin HCl 750 mg/ Sodium (Chloride) 515 mls @ 200 mls/hr IV NOW ONE Stop: 02/04/23 16:47 Hydrocortisone Sodium (Succinate 50 mg/ Syringe) 1 mls @ 4 mls/min IV Q6H SUSSY Stop: 03/06/23 14:14 Miscellaneous (Icu Protocol For Hyperglycemia) 1 each N/A ACHS SUSSY Stop: 02/06/23 07:29 Last Admin: 02/04/23 13:16 Dose: Not Given Miscellaneous Information (Vancomycin Consult Active) 1 each N/A UD PRN PRN Reason: Consult Stop: 03/06/23 14:12 Propofol (Propofol Bolus From Bag) 20 mg IV Q5M PRN PRN Reason: Sedation Stop: 02/07/23 01:52 Pending Studies at Discharge: No Stand-Alone Forms: My [facility] Skilled Items Patient informed of condition?: Yes DNR: Yes (Conditional Code) Discharge Level of Care: Other Communicable Disease: No Discharge Prognosis: Deteriorating Lines: Peripheral IV Urinary Catheter: Yes Medications and DC Order Prescriptions: Continued cinacalcet 60 mg tablet 60 mg PO BID Qty: 60 1RF Rx Instructions: take one tablet PO twice daily dextroamphetamine-amphetamine [Adderall] 20 mg tablet 20 mg PO TID ferrous sulfate 325 mg (65 mg iron) tablet 325 mg PO DAILY tramadol 50 mg tablet 100 mg PO Q6H PRN (Reason: Pain) valacyclovir [Valtrex] 1 gram tablet 1,000 mg PO BID PRN (Reason: as needed) Discharge Orders: Discharge Order (Routine); Ordered 02/04/23 Ordered By: Jodee Carrasco Admission Data Admit Date/Time: 02/04/23 01:02 Attending Provider: Jodee Carrasco Admit Provider: Felix Dutton Primary Care Provider: Ish Medina Other Providers: Felix Dutton; Stephno Comer; Kanu Garcia; Mariama Ruiz; Rosmery Luque; Kesha Saldana Lashelle; Ines Abad; Renetta Aponte; Emily Menon; Renea Diez; Khadijah Snell; Meme De; Jessica Sutton Jr; Loren Aldrich; Beau Duque; Adriel Mora; Tip Scanlon; Angel Luis Bond; Alexx Loredo; Arleen Soriano; Shannan Magallanes; Concepción Garcia; Tommy Smith; Luke Lim; Radha Carranza; Marguerite Villagomez; Arturo Jordan; Renetta Roe; Lai Wang; Arcelia Patiño. Other Interventions: Discharge Summary Assessment (RN) Last Done: 02/04/23 19:57
[2023-02-06 10:02] LABS: 7-Aminoclonaz, Confirm NEGATIVE ng/mL (<25); Hydro-Alp Ur, GC/MS NEGATIVE ng/mL (<25); Hydroxyethylflurazepam, Conf NEGATIVE ng/mL (<50); Hydroxymidazolam Ur, GC/MS NEGATIVE ng/mL (<50); Hydroxytriazolam NEGATIVE ng/mL (<50); Lorazepam, Ur GC/MS NEGATIVE ng/mL (<50); Nordiazepam, Confirm NEGATIVE ng/mL (<50); Oxazepam Ur, GC/MS >2000 ng/mL (<50); Temazepam, Confirm >2000 ng/mL (<50)
== END 2023-02-04 16:32 | disposition short-term general hospital (02) | DRG 871 ==
LOC: ED 21:54 → 1E 02-04 01:02